=== PATIENT | female | born 1980 | race African-American/Black ===

== ENCOUNTER 2017-05-10 18:02 | Inpatient (IN) | payer MEDICAID, OTHER ==
[~2017-05-10] VITALS: Ht 180.3 cm; Wt 75.5 kg
[2017-05-10] MEDS: MAGNESIUM SULFATE 1GM/100ML 100 ML IV SCH ×2 (02:00→21:00)
[2017-05-10 18:56] LABS: Albumin 3.8 g/dL (3.4-5.0); BUN/Creatinine Ratio 6.9; Calcium 7.2 mg/dL (8.5-10.1)
[2017-05-10 18:59] LABS: Bilirubin, Total 1.1 mg/dL (0.2-1.0); Total Protein 8.5 g/dL (6.4-8.2)
[2017-05-10 19:01] LABS: Potassium 2.1 mmol/L (3.5-5.1)
[2017-05-10 19:15] LABS: Basophils # (auto) 0.1 uL; Eosinophils # (auto) 0 uL; Hemoglobin 7.1 g/dL (12.2-16.2)
[2017-05-10] MEDS ORDERED: POTASSIUM CHL 20MEQ/100ML 100 ML IV ONE (19:15)
[2017-05-10] MEDS: POTASSIUM CHL 20MEQ/100ML 100 ML IV SCH ×2 (19:15→22:25)
[2017-05-10 19:16] LABS: Eosinophils % (auto) 0.6 % (0.0-7.0); Hematocrit 23.2 % (36.0-46.0); Lymphocytes # (auto) 1.2 uL; Lymphocytes % (auto) 29.8 % (10.0-50.0); Mean Corpuscular Hemoglobin 21.6 pg (28.0-32.0); Mean Corpuscular Hgb Conc. 30.6 g/dL (32.0-36.0); Mean Corpuscular Volume 70.6 fL (80.0-100.0); Monocytes # (auto) 0.5 uL; Monocytes % (auto) 13.7 % (0.0-12.0); Neutrophils # (auto) 2.1 uL; Neutrophils % (auto) 52.9 % (37.0-80.0); Nucleated Red Blood Cells % 0.4 %; Platelet Count (auto) 188 10^3/uL (140-450); Red Blood Cells 3.29 10^6/uL (4.0-5.20)
[2017-05-10 19:19] LABS: Red Cell Distribution Width 25.9 % (11.8-14.3)
[2017-05-10] MEDS ORDERED: SODIUM CHLORIDE 0.9% 1,000 ML IVB ONE (19:42)
[2017-05-10] MEDS ORDERED: LORazepam 2MG/ML-1ML VIAL IV ONE (19:45)
[2017-05-10] MEDS: LORazepam 2MG/ML-1ML VIAL IV ONE ×2 (19:45→21:05)
[2017-05-10] MEDS ORDERED: LEVETIRACETAM INJ 1,000 MG in D5W 5% 100 ML IV ONE (20:00)
[2017-05-10] MEDS ORDERED: LEVETIRACETAM 500 MG/5ML INJ IV ONE (20:09)
[2017-05-10 20:24] LABS: INR 1.12 (0.9-1.15); Prothrombin Time 12.2 sec (9.37-12.3)
[2017-05-10 20:52] LABS: Partial Thromboplastin Time 25.2 sec (22.64-33.71)
[2017-05-10] MEDS ORDERED: CALCIUM CHL IV ONE (21:00)
[2017-05-10] MEDS ORDERED: THIAMINE INJ 100 MG, MULTIPLE VITAMIN 10 ML, FOLIC ACID 1 MG, MAGNESIUM SULF SDV 50% 8 ... IV ONE ×5 (21:00)
[2017-05-10] MEDS ORDERED: D5W 5% IV ONE (21:00)
[2017-05-10] MEDS ORDERED: CALCIUM CHL 100MG/ML 2,000 MG in D5W 5% 100 ML IV ONE (21:15)
[2017-05-10 21:19] LABS: Urine WBC None Seen /hpf (0 - 5)
[2017-05-10 21:29] LABS: Urine Bacteria NONE SEEN /hpf (None Seen); Urine Blood 3+ /uL (Negative); Urine Mucus FEW (None Seen); Urine Specific Gravity 1.016 (1.001-1.035)
[2017-05-10 21:42] LABS: Amphetamine Screen, Urine NEGATIVE (NEGATIVE); Barbiturate Scree,Urine NEGATIVE (NEGATIVE); Benzodiazephine Screen, Urine NEGATIVE (NEGATIVE); Cannabinoid Screen, Urine NEGATIVE (NEGATIVE); Cocaine Screen, Urine NEGATIVE (NEGATIVE); Opiate Scree,Urine NEGATIVE (NEGATIVE); Phencyclidine Screen, Urine NEGATIVE (NEGATIVE)
[2017-05-11] MEDS ORDERED: SODIUM CHLORIDE 0.9% 1,000 ML IV ONE (00:30)
[2017-05-11] MEDS ORDERED: ONDANSETRON HCL 4 MG/2 ML VIAL IV PRN (00:30)
[2017-05-11] MEDS: MAGNESIUM SULFATE 1GM/100ML 100 ML IV SCH ×2 (00:42→06:00)
[2017-05-11 02:10] LABS: Basophils # (auto) 0.1 uL; Eosinophils # (auto) 0 uL; Monocytes # (auto) 0.7 uL
[2017-05-11 02:12] LABS: Basophils % (auto) 0.7 % (0.0-2.0); Hematocrit 23.9 % (36.0-46.0); Hemoglobin 7.2 g/dL (12.2-16.2); Lymphocytes # (auto) 1.5 uL; Lymphocytes % (auto) 14.3 % (10.0-50.0); Mean Corpuscular Hemoglobin 21.2 pg (28.0-32.0); Mean Corpuscular Hgb Conc. 30.1 g/dL (32.0-36.0); Mean Corpuscular Volume 70.4 fL (80.0-100.0); Monocytes % (auto) 7.1 % (0.0-12.0); Neutrophils # (auto) 8.1 uL; Neutrophils % (auto) 77.9 % (37.0-80.0); Nucleated Red Blood Cells % 0.2 %; Platelet Count (auto) 174 10^3/uL (140-450); White Blood Cell 10.5 10^3/uL (4.4-10.8)
[2017-05-11 02:14] LABS: Red Cell Distribution Width 26.1 % (11.8-14.3)
[2017-05-11 02:34] LABS: Albumin 3.9 g/dL (3.4-5.0); Calcium 8.9 mg/dL (8.5-10.1)
[2017-05-11 02:37] LABS: Potassium 2.3 mmol/L (3.5-5.1)
[2017-05-11 02:39] LABS: Bilirubin, Total 1.9 mg/dL (0.2-1.0); Total Protein 8.8 g/dL (6.4-8.2)
[2017-05-11] MEDS: POTASSIUM CHL 20MEQ/100ML 100 ML IV SCH ×4 (03:15→19:55)
[2017-05-11 03:28] LABS: BUN/Creatinine Ratio 3.9
[2017-05-11] MEDS ORDERED: MAGNESIUM SULFATE 1GM/100ML 100 ML IV ONE (03:50)
[2017-05-11] MEDS ORDERED: POTASSIUM CHL 20 Meq TABLET PO ONE ×2 (04:15→15:00)
[2017-05-11] MEDS: chlordiazePOXIDE HCL 25 MG CAP PO PRN ×2 (07:08→23:40)
[2017-05-11] MEDS: LORazepam 2MG/ML-1ML VIAL IV PRN ×2 (07:08→23:40)
[2017-05-11] MEDS: FERROUS SULFATE 325 MG TAB PO SCH ×2 (07:58→18:14)
[2017-05-11] MEDS: LEVETIRACETAM 500 MG TAB PO SCH ×2 (09:48→22:00)
[2017-05-11] MEDS: THIAMINE INJ 100 MG, MULTIPLE VITAMIN 10 ML, FOLIC ACID 1 MG, MAGNESIUM SULF SDV 50% 8 ... IV SCH ×5 (10:08)
[2017-05-11 12:42] LABS: Basophils # (auto) 0.1 uL; Eosinophils # (auto) 0 uL; Monocytes # (auto) 0.8 uL; Neutrophils # (auto) 4.8 uL; White Blood Cell 6.7 10^3/uL (4.4-10.8)
[2017-05-11 12:44] LABS: Basophils % (auto) 1.5 % (0.0-2.0); Eosinophils % (auto) 0.1 % (0.0-7.0); Hematocrit 21.4 % (36.0-46.0); Lymphocytes % (auto) 14.7 % (10.0-50.0); Mean Corpuscular Hemoglobin 21.6 pg (28.0-32.0); Mean Corpuscular Hgb Conc. 30.8 g/dL (32.0-36.0); Mean Corpuscular Volume 70.2 fL (80.0-100.0); Neutrophils % (auto) 71.7 % (37.0-80.0); Nucleated Red Blood Cells % 0.3 %; Platelet Count (auto) 146 10^3/uL (140-450); Red Blood Cells 3.05 10^6/uL (4.0-5.20)
[2017-05-11 12:57] LABS: Hemoglobin 6.6 g/dL (12.2-16.2); Red Cell Distribution Width 26.2 % (11.8-14.3)
[2017-05-11 13:03] LABS: Albumin 3.2 g/dL (3.4-5.0); BUN/Creatinine Ratio 3.4; Bilirubin, Total 1.5 mg/dL (0.2-1.0); Calcium 7.1 mg/dL (8.5-10.1); Total Protein 7.8 g/dL (6.4-8.2)
[2017-05-11 13:09] LABS: Potassium 2.1 mmol/L (3.5-5.1)
[2017-05-11] MEDS ORDERED: SPIRONOLACTONE 25 MG TAB PO ONE (15:15)
[2017-05-11 15:31] VITALS: BP 159/111
[2017-05-11 17:14] VITALS: BP 159/95
[2017-05-11 17:35] VITALS: BP 170/94
[2017-05-12 05:58] LABS: Lymphocytes # (auto) 1.3 uL; Lymphocytes % (auto) 22.1 % (10.0-50.0); Monocytes # (auto) 0.6 uL
[2017-05-12 06:00] LABS: Basophils # (auto) 0.1 uL; Basophils % (auto) 1.1 % (0.0-2.0); Eosinophils # (auto) 0 uL; Eosinophils % (auto) 0.7 % (0.0-7.0); Hematocrit 28.7 % (36.0-46.0); Mean Corpuscular Hemoglobin 23.6 pg (28.0-32.0); Mean Corpuscular Hgb Conc. 31.4 g/dL (32.0-36.0); Monocytes % (auto) 10.6 % (0.0-12.0); Neutrophils # (auto) 3.8 uL; Neutrophils % (auto) 65.5 % (37.0-80.0); Nucleated Red Blood Cells % 0.4 %; Platelet Count (auto) 147 10^3/uL (140-450); Red Blood Cells 3.82 10^6/uL (4.0-5.20); White Blood Cell 5.8 10^3/uL (4.4-10.8)
[2017-05-12 06:10] LABS: Red Cell Distribution Width 26.7 % (11.8-14.3)
[2017-05-12] MEDS ORDERED: POTASSIUM CHL 20 Meq TABLET PO ONE (07:00)
[2017-05-12] MEDS ORDERED: SOD CHL 0.9%/ KCL 20MEQ 1,000 ML IV SCH (07:00)
[2017-05-12 07:49] LABS: Anion Gap 7 (5-15); Blood Urea Nitrogen < 1 mg/dL (7-18); Calcium 6.5 mg/dL (8.5-10.1); Carbon Dioxide 31 mmol/L (21-32); Chloride 102 mmol/L (98-107); GFR African American 178 mL/min; GFR Non-African American 147 mL/min; Glucose 98 mg/dL (74-106); Sodium 140 mmol/L (136-145)
[2017-05-12] MEDS: FERROUS SULFATE 325 MG TAB PO SCH (07:51)
[2017-05-12] MEDS: chlordiazePOXIDE HCL 25 MG CAP PO PRN (07:52)
[2017-05-12 07:53] LABS: Potassium 2.3 mmol/L (3.5-5.1)
[2017-05-12] MEDS: LEVETIRACETAM 500 MG TAB PO SCH (10:00)
[2017-05-12] MEDS ORDERED: SPIRONOLACTONE 25 MG TAB PO SCH (10:00)
[2017-05-12 13:00] VITALS: BP 150/112
[2017-05-12] MEDS: THIAMINE INJ 100 MG, MULTIPLE VITAMIN 10 ML, FOLIC ACID 1 MG, MAGNESIUM SULF SDV 50% 8 ... IV SCH ×5 (13:25)
[2017-05-12] MEDS ORDERED: POTASSIUM CHL 20 Meq TABLET PO SCH (22:00)
[2017-05-13 09:44] LABS: Hepatitis B Surface Antibody Negative
[2017-05-13 09:54] LABS: Hepatitis B Surface Antigen Negative (Negative)
[2017-05-13 10:21] LABS: Hepatitis C Antibody Negative (Negative)
[2017-05-13 10:22] LABS: Hepatitis A Total Antibody Positive; Hepatitis B Core Total AB Negative
== END 2017-05-12 15:10 | disposition left against medical advice (07) | DRG 53 ==
LOC: ER 18:06 → TELE 18:07 → TELE-WESTW 05-12 10:41
PROVIDERS: ADMIT Nurse Practitioner Family; ATTEND Nurse Practitioner Family
PROC: 30233N1 Transfusion of Nonautologous Red Blood Cells into Peripheral Vein, Percutaneous Approach (ICD-10-PCS; principal; 2017-05-11)
DX: G40.909 Epilepsy, unspecified, not intractable, without status epilepticus (principal); F10.231 Alcohol dependence with withdrawal delirium; K76.0 Fatty (change of) liver, not elsewhere classified; E87.1 Hypo-osmolality and hyponatremia; E83.42 Hypomagnesemia; I10 Essential (primary) hypertension; S01.512A Laceration without foreign body of oral cavity, initial encounter; D63.8 Anemia in other chronic diseases classified elsewhere; E83.51 Hypocalcemia; E87.6 Hypokalemia; R74.8 Abnormal levels of other serum enzymes; R79.89 Other specified abnormal findings of blood chemistry; R94.5 Abnormal results of liver function studies; K70.9 Alcoholic liver disease, unspecified; N83.8 Other noninflammatory disorders of ovary, fallopian tube and broad ligament; Z53.21 Procedure and treatment not carried out due to patient leaving prior to being seen by health care provider; X58.XXXA Exposure to other specified factors, initial encounter; N92.0 Excessive and frequent menstruation with regular cycle; Z79.899 Other long term (current) drug therapy; Z80.3 Family history of malignant neoplasm of breast; Z82.49 Family history of ischemic heart disease and other diseases of the circulatory system; Z83.2 Family history of diseases of the blood and blood-forming organs and certain disorders involving the immune mechanism; Z86.73 Personal history of transient ischemic attack (TIA), and cerebral infarction without residual deficits; Z91.19 Patient's noncompliance with other medical treatment and regimen; Y93.89 Activity, other specified; Y92.89 Other specified places as the place of occurrence of the external cause; Y99.8 Other external cause status
CPT/HCPCS: 36415; 36430; 70450; 71045; 76856; 80048; 80053; 80307; 80320; 81001; 81025; 82088; 82378; 82542; 82962; 83735; 83880; 84132; 84443; 84702; 85025; 85610; 85730; 86301; 86304; 86704; 86706; 86708; 86803; 86850; 86900; 86901; 86920; 87040; 87340; 93005; 95819; 96361; 96365; 96366; 96367; 96375; 99291; J3480; J7060

== ENCOUNTER 2019-02-02 13:42 | Emergency (ER) | payer SELFPAY ==
[~2019-02-02] VITALS: Ht 185.4 cm; Wt 80.3 kg
[~2019-02-02 13:42] MED LIST: AML5T PO; GABA300C10 PO; HYDR12.56 PO; LEVE500T22 PO
[2019-02-02] MEDS ORDERED: SODIUM CHLORIDE 0.9% 1,000 ML IVB ONE (13:54)
[2019-02-02] MEDS ORDERED: LEVETIRACETAM INJ 1,000 MG in D5W 5% 100 ML IV ONE (14:00)
[2019-02-02] MEDS ORDERED: LORazepam 2MG/ML-1ML VIAL IV ONE (14:00)
[2019-02-02 14:15] LABS: Basophils # (auto) 0.1 uL; Eosinophils # (auto) 0 uL; Monocytes # (auto) 0.4 uL; Neutrophils # (auto) 2.1 uL; Nucleated Red Blood Cells % 0.1 %
[2019-02-02 14:17] LABS: Basophils % (auto) 2.5 % (0.0-2.0); Eosinophils % (auto) 0.8 % (0.0-7.0); Hematocrit 34.6 % (36.0-46.0); Lymphocytes # (auto) 1.1 uL; Lymphocytes % (auto) 29.8 % (10.0-50.0); Mean Corpuscular Hemoglobin 24.6 pg (28.0-32.0); Monocytes % (auto) 9.9 % (0.0-12.0); Platelet Count (auto) 235 10^3/uL (140-450); Red Blood Cells 4.49 10^6/uL (4.0-5.20); White Blood Cell 3.7 10^3/uL (4.4-10.8)
[2019-02-02 14:41] LABS: Albumin 4.1 g/dL (3.4-5.0); Calcium 8.4 mg/dL (8.5-10.1)
[2019-02-02 14:48] LABS: BUN/Creatinine Ratio 14.8; Bilirubin, Total 0.7 mg/dL (0.2-1.0); Total Protein 8.5 g/dL (6.4-8.2)
[2019-02-02 14:51] LABS: Red Cell Distribution Width 23.8 % (11.8-14.3)
== END 2019-02-02 17:03 | disposition home or self-care (01) ==
LOC: EDBD 13:42 → ER 13:47
DX: F10.129 Alcohol abuse with intoxication, unspecified (principal); R56.9 Unspecified convulsions; Y90.8 Blood alcohol level of 240 mg/100 ml or more; I10 Essential (primary) hypertension
CPT/HCPCS: 36415; 80053; 80320; 84702; 85025; 96365; 96375; 99283; J1953; J2060; J7060

== ENCOUNTER 2019-02-14 15:33 | Inpatient (IN) | payer SELFPAY ==
[~2019-02-14] VITALS: Ht 172.7 cm; Wt 78.4 kg
[2019-02-14] MEDS ORDERED: LORazepam 2MG/ML-1ML VIAL IV ONE (16:30)
[2019-02-14] MEDS ORDERED: SODIUM CHLORIDE 0.9% 1,000 ML IV ONE (19:00)
[2019-02-14] MEDS ORDERED: ONDANSETRON HCL 4 MG/2 ML VIAL IV ONE (19:00)
[2019-02-14] MEDS ORDERED: LEVETIRACETAM INJ 1,000 MG in D5W 5% 100 ML IV ONE (19:15)
[2019-02-14] MEDS ORDERED: SODIUM CHLORIDE 0.9% 1,000 ML IV SCH (22:22)
[2019-02-14] MEDS ORDERED: ONDANSETRON HCL 4 MG/2 ML VIAL IV PRN (22:30)
[2019-02-14] MEDS ORDERED: HYDROcodone-ACET 5/325MG TAB PO PRN (22:30)
[2019-02-14] MEDS ORDERED: MORPHINE SULFATE 4 MG/ML SYR/VIAL IV PRN (22:30)
[2019-02-14] MEDS ORDERED: ACETAMINOPHEN 325 MG TAB PO PRN (22:30)
[2019-02-14] MEDS ORDERED: LORazepam 0.5 MG TAB PO PRN (22:30)
[2019-02-14] MEDS ORDERED: DOCUSATE SOD 100 MG CAP PO PRN (22:30)
[2019-02-15 00:47] VITALS: BP 154/104
[2019-02-15 02:15] VITALS: BP 154/104
[2019-02-15 05:22] VITALS: BP 121/71
--- NOTE | 2019-02-15 05:28 | NUR ---
Elevated Temp During 4am vitals checked the patient was found with a temperature of 100.2. It was too low for Tylenol but started cooling measures anyway. The patient's temp decreased to 98.6 at 0515hrs. Will continue to monitor.
--- NOTE | 2019-02-15 07:30 | NUR ---
Opening Shift Note Assumed care of patient, who is alert and oriented x4. No S/S of distress/SOB or pain. Bed is in the lowest position with 2x side rails up for safety. Seizure precautions are in place. Call light is within reach. Instructed on POC and to call for assist PRN, will continue to monitor for changes Q1hr and PRN.
[2019-02-15 07:41] LABS: Calcium 8.2 mg/dL (8.5-10.1)
[2019-02-15 07:45] LABS: Basophils # (auto) 0.1 uL; Basophils % (auto) 1.3 % (0.0-2.0); Eosinophils # (auto) 0 uL; Eosinophils % (auto) 0.5 % (0.0-7.0); Lymphocytes # (auto) 1.7 uL; Lymphocytes % (auto) 20.6 % (10.0-50.0); Mean Corpuscular Hemoglobin 24.8 pg (28.0-32.0); Mean Corpuscular Hgb Conc. 32.4 g/dL (32.0-36.0); Mean Corpuscular Volume 76.5 fL (80.0-100.0); Monocytes % (auto) 12.6 % (0.0-12.0); Neutrophils # (auto) 5.3 uL; Nucleated Red Blood Cells % 0.2 %; Platelet Count (auto) 159 10^3/uL (140-450); Potassium 2.7 mmol/L (3.5-5.1); Red Blood Cells 4.44 10^6/uL (4.0-5.20); White Blood Cell 8.1 10^3/uL (4.4-10.8)
[2019-02-15 07:47] LABS: Red Cell Distribution Width 24.8 % (11.8-14.3)
--- NOTE | 2019-02-15 07:49 | NUR ---
Paged hospitalist Paged hospitalist about patient's potassium level of 2.7. Received call back. New orders received.
[2019-02-15 08:00] VITALS: BP 139/78
[2019-02-15] MEDS ORDERED: POTASSIUM CHLORIDE 40 MEQ, LIDOCAINE 1% (LOCAL ANESTH.) 4 ML in SODIUM CHL 0.9% 100 ML IV ONE ×2 (08:00→14:00)
--- NOTE | 2019-02-15 08:00 | NUR ---
Patient is refusing potassium replacement as ordered per hospitalist.
--- NOTE | 2019-02-15 08:13 | NUR ---
Paged hospitalist To inform them that patient is refusing potassium supplement. Waiting for call back.
[2019-02-15 09:00] VITALS: BP 139/75
--- NOTE | 2019-02-15 09:40 | NUR ---
Received new orders from Dr. Vu to replace patients potassium level of 2.7. Will carry out orders.
[2019-02-15] MEDS ORDERED: POTASSIUM EFFERVESENT TAB 25 MEQ PO ONE (09:45)
[2019-02-15] MEDS ORDERED: LEVETIRACETAM INJ 500 MG in D5W 5% 100 ML IV SCH (10:00)
--- NOTE | 2019-02-15 11:45 | NUR ---
Dr. Hatch at bedside Updated patient on POC. New orders received/carried out.
[2019-02-15] MEDS ORDERED: chlordiazePOXIDE HCL 25 MG CAP PO SCH (12:00)
[2019-02-15] MEDS ORDERED: FOLIC ACID 1 MG, MULTIPLE VITAMIN 10 ML, MAGNESIUM SULF SDV 50% 8 MEQ, THIAMINE INJ 100... INJ SCH ×5 (12:00)
[2019-02-15] MEDS ORDERED: LORazepam 2MG/ML-1ML VIAL IV PRN (12:00)
[2019-02-15] MEDS ORDERED: PANTOPRAZOLE 40 MG TAB PO SCH (12:02)
[2019-02-15 13:00] VITALS: BP 145/97
--- NOTE | 2019-02-15 14:09 | NUR ---
AMA Patient wants to leave Against medical advice due to personal reasons. Mamie is aware of patient's decision to leave.
--- NOTE | 2019-02-15 14:55 | NUR ---
AMA Note POLLY WOLFF states they want to leave the hospital Against Medical Advice (AMA). Patient encouraged to stay for further treatment/stabilization. DEBRA Hatch notified of patient's wishes. Patient advised of the risks and benefits of leaving AMA. Patient verbalized understanding. Removed IV with clean technique, 22g catheter fully intact. Patient tolerated well. Patient encouraged to return to the ER if symptoms do not improve or worsen.
== END 2019-02-15 14:55 | disposition left against medical advice (07) | DRG 101 ==
LOC: ER 15:33 → EDBD 15:33 → OVERFLOW 15:34 → WEST WING 02-15 00:40
PROVIDERS: ADMIT Hospitalist; ATTEND Hospitalist
DX: G40.909 Epilepsy, unspecified, not intractable, without status epilepticus (principal); I10 Essential (primary) hypertension; R32 Unspecified urinary incontinence; F10.20 Alcohol dependence, uncomplicated; Y90.9 Presence of alcohol in blood, level not specified; E87.6 Hypokalemia; Z80.3 Family history of malignant neoplasm of breast; Z83.2 Family history of diseases of the blood and blood-forming organs and certain disorders involving the immune mechanism; Z83.3 Family history of diabetes mellitus; Z91.14 Patient's other noncompliance with medication regimen; Z91.19 Patient's noncompliance with other medical treatment and regimen
CPT/HCPCS: 36415; 70450; 80048; 82962; 85025; G0378; J2001; J2405; J7060

== ENCOUNTER 2019-02-24 06:45 | Emergency (ER) | payer SELFPAY ==
[~2019-02-24] VITALS: Ht 185.4 cm; Wt 78.0 kg
[2019-02-24] MEDS ORDERED: SODIUM CHLORIDE 0.9% 1,000 ML IVB ONE (07:54)
[2019-02-24] MEDS ORDERED: LORazepam 2MG/ML-1ML VIAL IV ONE (08:00)
[2019-02-24] MEDS ORDERED: LABETALOL HCL 5 MG/ML 4ML SYRINGE IV ONE (08:00)
[2019-02-24 08:15] LABS: Urine Bacteria MANY /hpf (None Seen); Urine Blood TRACE /uL (Negative); Urine Mucus FEW (None Seen); Urine Specific Gravity 1.019 (1.001-1.035); Urine WBC 8 /hpf (0 - 5)
[2019-02-24 08:27] LABS: Amphetamine Screen, Urine NEGATIVE (NEGATIVE); Barbiturate Scree,Urine NEGATIVE (NEGATIVE); Benzodiazephine Screen, Urine POSITIVE (NEGATIVE); Cannabinoid Screen, Urine NEGATIVE (NEGATIVE); Cocaine Screen, Urine NEGATIVE (NEGATIVE); Opiate Scree,Urine NEGATIVE (NEGATIVE); Phencyclidine Screen, Urine NEGATIVE (NEGATIVE)
[2019-02-24 08:44] LABS: Hemoglobin 10.6 g/dL (12.2-16.2); White Blood Cell 5.4 10^3/uL (4.4-10.8)
[2019-02-24 08:46] LABS: Hematocrit 32.9 % (36.0-46.0); Mean Corpuscular Hemoglobin 25.4 pg (28.0-32.0); Mean Corpuscular Hgb Conc. 32.3 g/dL (32.0-36.0); Mean Corpuscular Volume 78.7 fL (80.0-100.0); Platelet Count (auto) 318 10^3/uL (140-450); Red Blood Cells 4.19 10^6/uL (4.0-5.20)
[2019-02-24 08:56] LABS: Red Cell Distribution Width 24.8 % (11.8-14.3)
[2019-02-24 08:57] LABS: Basophils % (manual) 0 (0.0-2.0); Blast Cells 0; Myelocytes % 0; Promyelocytes % 0; Reactive Lymphocytes 0
[2019-02-24 09:03] LABS: Albumin 3.4 g/dL (3.4-5.0); Calcium 8.1 mg/dL (8.5-10.1)
[2019-02-24 09:05] LABS: Bilirubin, Total 0.5 mg/dL (0.2-1.0); Total Protein 8.4 g/dL (6.4-8.2)
[2019-02-24 09:17] LABS: Potassium 2.9 mmol/L (3.5-5.1)
[2019-02-24] MEDS ORDERED: POTASSIUM EFFERVESENT TAB 25 MEQ PO ONE (09:30)
[2019-02-24 10:00] VITALS: BP 175/102
[2019-02-24 10:02] LABS: Band Neutrophils % (manual) 2; Eosinophils % (manual) 2 (0-7); Lymphocytes % (manual) 22 (10.0-50.0); Metamyelocytes % 1; Monocytes % (manual) 6 (0-12)
== END 2019-02-24 10:42 | disposition home or self-care (01) ==
LOC: ER 06:45
DX: I10 Essential (primary) hypertension (principal); R56.9 Unspecified convulsions; R42 Dizziness and giddiness
CPT/HCPCS: 36415; 80053; 80307; 80320; 81001; 85007; 85025; 85027; 96361; 96374; 99283; J2060; J7030

== ENCOUNTER 2019-02-25 07:33 | Emergency (ER) | payer MEDICAID ==
[~2019-02-25] VITALS: Ht 185.4 cm; Wt 78.0 kg
[2019-02-25] MEDS ORDERED: SODIUM CHLORIDE 0.9% 1,000 ML IV ONE (07:52)
[2019-02-25] MEDS ORDERED: LORazepam 2MG/ML-1ML VIAL IV ONE (08:00)
[2019-02-25 08:22] LABS: Eosinophils # (auto) 0 uL; Hemoglobin 11.5 g/dL (12.2-16.2); Lymphocytes # (auto) 0.9 uL; Mean Corpuscular Hgb Conc. 32.1 g/dL (32.0-36.0); Monocytes # (auto) 0.6 uL; Nucleated Red Blood Cells % 0.2 %; White Blood Cell 3.6 10^3/uL (4.4-10.8)
[2019-02-25 08:25] LABS: Basophils # (auto) 0 uL; Basophils % (auto) 0.4 % (0.0-2.0); Eosinophils % (auto) 0.6 % (0.0-7.0); Hematocrit 35.9 % (36.0-46.0); Lymphocytes % (auto) 24.7 % (10.0-50.0); Mean Corpuscular Hemoglobin 25.1 pg (28.0-32.0); Mean Corpuscular Volume 78.2 fL (80.0-100.0); Monocytes % (auto) 17.6 % (0.0-12.0); Neutrophils % (auto) 56.7 % (37.0-80.0); Platelet Count (auto) 359 10^3/uL (140-450); Red Blood Cells 4.59 10^6/uL (4.0-5.20)
[2019-02-25 08:32] LABS: Urine Bacteria FEW /hpf (None Seen); Urine Blood Negative /uL (Negative); Urine Mucus FEW (None Seen); Urine Specific Gravity 1.011 (1.001-1.035); Urine WBC 15 /hpf (0 - 5)
[2019-02-25 08:36] LABS: Albumin 3.7 g/dL (3.4-5.0); Calcium 8.3 mg/dL (8.5-10.1)
[2019-02-25 08:39] LABS: BUN/Creatinine Ratio 5.5; Bilirubin, Total 1.1 mg/dL (0.2-1.0)
[2019-02-25 08:40] LABS: Red Cell Distribution Width 24.7 % (11.8-14.3)
[2019-02-25 08:42] LABS: Potassium 2.8 mmol/L (3.5-5.1)
[2019-02-25 08:44] LABS: Magnesium 1.1 mg/dL (1.6-2.6)
[2019-02-25] MEDS ORDERED: POTASSIUM EFFERVESENT TAB 25 MEQ PO ONE (09:00)
[2019-02-25] MEDS ORDERED: cefTRIAXone 1GM/50ML D5W 50 ML IV ONE (11:00)
[2019-02-25] MEDS ORDERED: MAGNESIUM SULFATE 1GM/100ML 100 ML IV SCH (11:00)
[2019-02-25 13:45] VITALS: BP 169/106
== END 2019-02-25 14:00 | disposition left against medical advice (07) ==
LOC: ER 07:37
DX: G40.909 Epilepsy, unspecified, not intractable, without status epilepticus (principal); N39.0 Urinary tract infection, site not specified; E87.6 Hypokalemia; R79.89 Other specified abnormal findings of blood chemistry; I10 Essential (primary) hypertension
CPT/HCPCS: 36415; 80053; 81001; 83690; 83735; 84702; 85025; 93005; 96365; 96366; 96367; 99284; J0696; J2060; J3475; J7030

== ENCOUNTER 2019-02-27 19:16 | Emergency (ER) | payer SELFPAY ==
[~2019-02-27] VITALS: Ht 180.3 cm; Wt 78.0 kg
[2019-02-27 20:32] LABS: Basophils # (auto) 0 uL; Eosinophils # (auto) 0.1 uL; Hemoglobin 11.4 g/dL (12.2-16.2); Lymphocytes # (auto) 1.7 uL; Mean Corpuscular Hgb Conc. 31.7 g/dL (32.0-36.0); Monocytes # (auto) 0.6 uL; Neutrophils # (auto) 3.8 uL; Nucleated Red Blood Cells % 0.1 %; White Blood Cell 6.3 10^3/uL (4.4-10.8)
[2019-02-27 20:33] LABS: Albumin 3.7 g/dL (3.4-5.0); Anion Gap 10 (5-15); Blood Alcohol < 3.0 mg/dL (0-5); Blood Urea Nitrogen 6 mg/dL (7-18); Calcium 8.9 mg/dL (8.5-10.1); Carbon Dioxide 29 mmol/L (21-32); Chloride 99 mmol/L (98-107); Glucose 96 mg/dL (74-106); Magnesium 1.4 mg/dL (1.6-2.6); Sodium 138 mmol/L (136-145)
[2019-02-27 20:34] LABS: Basophils % (auto) 0.6 % (0.0-2.0); Eosinophils % (auto) 1.9 % (0.0-7.0); Lymphocytes % (auto) 27.5 % (10.0-50.0); Mean Corpuscular Volume 78.9 fL (80.0-100.0); Monocytes % (auto) 9.2 % (0.0-12.0); Neutrophils % (auto) 60.8 % (37.0-80.0); Platelet Count (auto) 417 10^3/uL (140-450); Red Blood Cells 4.56 10^6/uL (4.0-5.20)
[2019-02-27 20:34] LABS: Alcohol, Urine < 3.0 mg/dL (0-5); Amphetamine Screen, Urine NEGATIVE (NEGATIVE); Barbiturate Scree,Urine NEGATIVE (NEGATIVE); Benzodiazephine Screen, Urine POSITIVE (NEGATIVE); Cannabinoid Screen, Urine NEGATIVE (NEGATIVE); Cocaine Screen, Urine NEGATIVE (NEGATIVE); Opiate Scree,Urine NEGATIVE (NEGATIVE); Phencyclidine Screen, Urine NEGATIVE (NEGATIVE)
[2019-02-27 20:35] LABS: Alanine Aminotransferase 82 U/L (13-56); Aspartate Aminotransferase 119 U/L (15-37); BUN/Creatinine Ratio 8.6; GFR African American 119 mL/min; GFR Non-African American 99 mL/min; Red Cell Distribution Width 24.5 % (11.8-14.3)
[2019-02-27 20:37] LABS: Alkaline Phosphatase 138 U/L (45-117); Bilirubin, Total 0.6 mg/dL (0.2-1.0); Total Protein 8.6 g/dL (6.4-8.2)
[2019-02-27 20:46] LABS: Phenytoin (Dilantin) 1.2 ug/mL (10-20)
[2019-02-27] MEDS ORDERED: LEVETIRACETAM INJ 1,000 MG in D5W 5% 100 ML IV ONE (21:15)
[2019-02-27] MEDS ORDERED: LORazepam 2MG/ML-1ML VIAL IV ONE (21:45)
[2019-02-27 22:30] LABS: Urine Bacteria FEW /hpf (None Seen); Urine Blood Negative /uL (Negative); Urine Specific Gravity 1.012 (1.001-1.035); Urine WBC 6 /hpf (0 - 5)
[2019-02-27 23:00] VITALS: BP 137/85
== END 2019-02-28 00:03 | disposition home or self-care (01) ==
LOC: ER 19:16 → EDBD 19:16 → ER 02-28 00:03
DX: F10.239 Alcohol dependence with withdrawal, unspecified (principal); R56.9 Unspecified convulsions; K70.30 Alcoholic cirrhosis of liver without ascites; E87.6 Hypokalemia; I10 Essential (primary) hypertension; Z91.14 Patient's other noncompliance with medication regimen; Y90.0 Blood alcohol level of less than 20 mg/100 ml
CPT/HCPCS: 36415; 80053; 80164; 80185; 80307; 80320; 81001; 81025; 82140; 83735; 85025; 96365; 96375; 99283; J1953; J2060; J7060

== ENCOUNTER 2019-05-27 22:21 | Emergency (ER) | payer MEDICAID ==
[~2019-05-27] VITALS: Ht 182.9 cm; Wt 90.7 kg
[2019-05-27 23:21] LABS: Basophils # (auto) 0.1 10 ^3/uL (0-0.2); Basophils % (auto) 2.7 % (0.0-2.0); Eosinophils # (auto) 0 10 ^3/uL (0-0.8); Eosinophils % (auto) 0.6 % (0.0-7.0); Hemoglobin 11.1 g/dL (12.2-16.2); Lymphocytes # (auto) 1.2 10 ^3/uL (0.4-5.4); Lymphocytes % (auto) 37.3 % (10.0-50.0); Mean Corpuscular Hemoglobin 26.5 pg (28.0-32.0); Mean Corpuscular Hgb Conc. 32.6 g/dL (32.0-36.0); Mean Corpuscular Volume 81.5 fL (80.0-100.0); Monocytes # (auto) 0.4 10 ^3/uL (0-1.3); Monocytes % (auto) 11.6 % (0.0-12.0); Neutrophils # (auto) 1.5 10 ^3/uL (1.6-8.6); Neutrophils % (auto) 47.8 % (37.0-80.0); Nucleated Red Blood Cells % 0.1 %; Platelet Count (auto) 183 10^3/uL (140-450); Red Blood Cells 4.17 10^6/uL (4.0-5.20); White Blood Cell 3.2 10^3/uL (4.4-10.8)
[2019-05-27 23:22] LABS: Red Cell Distribution Width 21.6 % (11.8-14.3)
[2019-05-27 23:40] LABS: Calcium 8.7 mg/dL (8.5-10.1)
[2019-05-27 23:43] LABS: Albumin 4.3 g/dL (3.4-5.0); BUN/Creatinine Ratio 18.1
[2019-05-27 23:48] LABS: Bilirubin, Total 0.4 mg/dL (0.2-1.0); Total Protein 8.9 g/dL (6.4-8.2)
[2019-05-27 23:51] LABS: Potassium 2.6 mmol/L (3.5-5.1)
[2019-05-28] MEDS ORDERED: THIAMINE INJ 100 MG in SODIUM CHLORIDE 0.9% 1,000 ML IV ONE (01:00)
[2019-05-28] MEDS ORDERED: POTASSIUM EFFERVESENT TAB 25 MEQ PO ONE (01:00)
[2019-05-28] MEDS ORDERED: POTASSIUM CHL 20MEQ/100ML 100 ML IV ONE (01:00)
[2019-05-28] MEDS ORDERED: ONDANSETRON HCL 4 MG/2 ML VIAL IV ONE (01:00)
[2019-05-28] MEDS ORDERED: levETIRAcetam 500 MG/5ML INJ IV ONE (01:08)
[2019-05-28] MEDS ORDERED: THIAMINE 100mg/ml INJ (200mg/2ml VIAL) ONE (01:08)
[2019-05-28 01:18] LABS: Urine Bacteria FEW /hpf (None Seen); Urine Blood Negative /uL (Negative); Urine Hyaline Cast MOD /lpf (0 - 2); Urine Mucus FEW (None Seen); Urine Specific Gravity 1.016 (1.001-1.035); Urine WBC 5 /hpf (0 - 5)
[2019-05-28 01:21] LABS: Amphetamine Screen, Urine NEGATIVE (NEGATIVE); Barbiturate Scree,Urine NEGATIVE (NEGATIVE); Benzodiazephine Screen, Urine NEGATIVE (NEGATIVE); Cannabinoid Screen, Urine NEGATIVE (NEGATIVE); Cocaine Screen, Urine NEGATIVE (NEGATIVE); Opiate Scree,Urine NEGATIVE (NEGATIVE); Phencyclidine Screen, Urine NEGATIVE (NEGATIVE)
[2019-05-28 04:38] VITALS: BP 112/71
[2019-05-28 04:38] LABS: BUN/Creatinine Ratio 15.5; Calcium 8.8 mg/dL (8.5-10.1); Potassium 3.9 mmol/L (3.5-5.1)
== END 2019-05-28 05:23 | disposition home or self-care (01) ==
LOC: EDUNIT# 22:21 → EDBD 22:21 → ER 22:23
DX: F10.239 Alcohol dependence with withdrawal, unspecified (principal); F10.229 Alcohol dependence with intoxication, unspecified; K70.9 Alcoholic liver disease, unspecified; E87.6 Hypokalemia; Y90.9 Presence of alcohol in blood, level not specified; I10 Essential (primary) hypertension
CPT/HCPCS: 36415; 80048; 80053; 80307; 80320; 81001; 84702; 85025; 96365; 96366; 96367; 96368; 96375; 99284; J1953; J2405; J3411; J3480; J7060

== ENCOUNTER 2019-05-28 06:04 | Emergency (ER) | payer MEDICAID ==
[~2019-05-28] VITALS: Ht 180.3 cm; Wt 73.0 kg
[2019-05-28 06:10] VITALS: BP 143/93
--- NOTE | 2019-05-28 10:21 | NUR ---
assessment per consult needs access to outpatient mental facilities in area. Patient discharged from ER prior to being assessed. Addendum: 05/28/19 at 1623 by Linsey Osorio Amended: Links added.
== END 2019-05-28 08:16 | disposition home or self-care (01) ==
LOC: ER 06:04
DX: R07.89 Other chest pain (principal); F10.129 Alcohol abuse with intoxication, unspecified; E86.0 Dehydration; I10 Essential (primary) hypertension; Y90.9 Presence of alcohol in blood, level not specified
CPT/HCPCS: 93005

== ENCOUNTER 2019-08-29 01:51 | Emergency (ER) | payer MEDICAID ==
[~2019-08-29] VITALS: Ht 185.4 cm; Wt 79.4 kg
[2019-08-29] MEDS ORDERED: cloNIDine HCL 0.1 MG TAB PO ONE (02:30)
[2019-08-29 03:15] LABS: Albumin 4.5 g/dL (3.4-5.0); Anion Gap 25 (5-15); Blood Urea Nitrogen 6 mg/dL (7-18); Calcium 8.7 mg/dL (8.5-10.1); Carbon Dioxide 16 mmol/L (21-32); Chloride 95 mmol/L (98-107); Glucose 100 mg/dL (74-106); Magnesium 1.7 mg/dL (1.6-2.6); Potassium 3.3 mmol/L (3.5-5.1); Sodium 136 mmol/L (136-145)
[2019-08-29] MEDS ORDERED: ONDANSETRON HCL 4 MG/2 ML VIAL IV ONE (03:15)
[2019-08-29] MEDS ORDERED: LORazepam 2MG/ML-1ML VIAL IV ONE (03:15)
[2019-08-29] MEDS ORDERED: SODIUM CHLORIDE 0.9% 2,000 ML IV ONE (03:15)
[2019-08-29 03:17] LABS: Alanine Aminotransferase 140 U/L (13-56); Amylase 73 U/L (25-115); Aspartate Aminotransferase 342 U/L (15-37); BUN/Creatinine Ratio 7.5; GFR African American 102 mL/min; GFR Non-African American 84 mL/min; Lipase 102 U/L (73-393)
[2019-08-29 03:20] LABS: Alkaline Phosphatase 122 U/L (45-117); Bilirubin, Total 1.4 mg/dL (0.2-1.0); Total Protein 10.1 g/dL (6.4-8.2)
[2019-08-29 03:40] LABS: Urine Bacteria NONE SEEN /hpf (None Seen); Urine Blood 2+ /uL (Negative); Urine Specific Gravity 1.027 (1.001-1.035); Urine WBC 6 /hpf (0 - 5)
[2019-08-29] MEDS ORDERED: levETIRAcetam 500 MG/5ML INJ IV ONE (03:43)
[2019-08-29 04:24] LABS: Hematocrit 33.7 % (36.0-46.0); Hemoglobin 10.8 g/dL (12.2-16.2); Mean Corpuscular Hemoglobin 26.2 pg (28.0-32.0); Mean Corpuscular Hgb Conc. 31.9 g/dL (32.0-36.0); Mean Corpuscular Volume 82.3 fL (80.0-100.0); Platelet Count (auto) 99 10^3/uL (140-450); White Blood Cell 3.2 10^3/uL (4.4-10.8)
[2019-08-29 04:25] LABS: Basophils % (manual) 0 (0.0-2.0); Blast Cells 0; Eosinophils % (manual) 0 (0-7); Metamyelocytes % 0; Myelocytes % 0; Promyelocytes % 0; Reactive Lymphocytes 0
[2019-08-29 05:00] VITALS: BP 146/96
[2019-08-29 05:04] LABS: Band Neutrophils % (manual) 9; Lymphocytes % (manual) 6 (10.0-50.0); Monocytes % (manual) 5 (0-12)
== END 2019-08-29 04:55 | disposition home or self-care (01) ==
LOC: ER 01:51 → EDBD 01:51 → ER 04:55
DX: K29.00 Acute gastritis without bleeding (principal); G40.909 Epilepsy, unspecified, not intractable, without status epilepticus; F41.9 Anxiety disorder, unspecified; R11.2 Nausea with vomiting, unspecified; Z32.02 Encounter for pregnancy test, result negative
CPT/HCPCS: 36415; 80053; 81001; 81025; 82150; 83690; 83735; 84702; 85007; 85025; 85027; 96361; 96374; 96375; 99285; J1953; J2060; J2405; J7030; J7060

== ENCOUNTER 2020-01-20 15:37 | Inpatient (IN) | payer MEDICAID ==
[2020-01-19] MEDS: POTASSIUM CHL 20MEQ/100ML 100 ML IV SCH (23:50)
[~2020-01-20] VITALS: Ht 185.4 cm; Wt 80.5 kg
[2020-01-20 11:20] VITALS: BP 158/97
[~2020-01-20 15:37] MED LIST changes: -LEVE500T22 PO; +LEVE500T32 PO
[2020-01-20] MEDS ORDERED: LORazepam 2MG/ML-1ML VIAL ONE (16:01)
[2020-01-20] MEDS ORDERED: ONDANSETRON HCL 4 MG/2 ML VIAL ONE (17:00)
[2020-01-20 17:42] LABS: Basophils # (auto) 0.1 10 ^3/uL (0-0.2); Basophils % (auto) 3.1 % (0.0-2.0); Eosinophils # (auto) 0 10 ^3/uL (0-0.8); Hematocrit 38.8 % (36.0-46.0); Hemoglobin 12.3 g/dL (12.2-16.2); Lymphocytes # (auto) 0.4 10 ^3/uL (0.4-5.4); Lymphocytes % (auto) 9.3 % (10.0-50.0); Mean Corpuscular Hemoglobin 28.2 pg (28.0-32.0); Mean Corpuscular Hgb Conc. 31.7 g/dL (32.0-36.0); Mean Corpuscular Volume 89.1 fL (80.0-100.0); Monocytes # (auto) 0.5 10 ^3/uL (0-1.3); Monocytes % (auto) 10.6 % (0.0-12.0); Neutrophils # (auto) 3.4 10 ^3/uL (1.6-8.6); Nucleated Red Blood Cells % 0.1 %; Platelet Count (auto) 216 10^3/uL (140-450); Red Blood Cells 4.35 10^6/uL (4.0-5.20); Red Cell Distribution Width 19.8 % (11.8-14.3); White Blood Cell 4.4 10^3/uL (4.4-10.8)
[2020-01-20 18:04] LABS: Albumin 4.4 g/dL (3.4-5.0); Calcium 8.2 mg/dL (8.5-10.1); INR 1.16 (0.9-1.15); Magnesium 1.6 mg/dL (1.6-2.6); Partial Thromboplastin Time 26.5 sec (23.0-31.2)
[2020-01-20 18:07] LABS: Bilirubin, Total 1.5 mg/dL (0.2-1.0); Total Protein 9.2 g/dL (6.4-8.2)
[2020-01-20 18:08] LABS: Lactic Acid w/Reflex 13.7 mmol/L (0.4-2.0)
[2020-01-20 18:14] LABS: Potassium 2.5 mmol/L (3.5-5.1)
[2020-01-20] MEDS ORDERED: SODIUM CHLORIDE 0.9% 1,000 ML IV ONE ×2 (18:30→21:15)
[2020-01-20 18:37] LABS: Urine Bacteria FEW /hpf (None Seen); Urine Blood TRACE /uL (Negative); Urine Mucus FEW (None Seen); Urine Specific Gravity 1.018 (1.001-1.035); Urine WBC 11 /hpf (0 - 5)
[2020-01-20 19:55] LABS: Amphetamine Screen, Urine NEGATIVE (NEGATIVE); Barbiturate Scree,Urine NEGATIVE (NEGATIVE); Benzodiazephine Screen, Urine NEGATIVE (NEGATIVE); Cannabinoid Screen, Urine NEGATIVE (NEGATIVE); Cocaine Screen, Urine NEGATIVE (NEGATIVE); Opiate Scree,Urine NEGATIVE (NEGATIVE); Phencyclidine Screen, Urine NEGATIVE (NEGATIVE)
[2020-01-20] MEDS ORDERED: ACETAMINOPHEN 500 MG TAB PO ONE (20:45)
[2020-01-20] MEDS: POTASSIUM CHL 20MEQ/100ML 100 ML IV SCH ×2 (20:55→21:55)
[2020-01-20] MEDS ORDERED: NITROGLYCERIN 0.4 MG SL TAB SL PRN (21:15)
[2020-01-20] MEDS ORDERED: ONDANSETRON HCL 4 MG/2 ML VIAL IV PRN (21:15)
[2020-01-20] MEDS ORDERED: SODIUM CHLORIDE 0.9% 1,000 ML IV SCH (21:15)
[2020-01-20] MEDS ORDERED: LORazepam 2MG/ML-1ML VIAL IV PRN (21:15)
[2020-01-20] MEDS ORDERED: ACETAMINOPHEN 325 MG TAB PO PRN (21:15)
[2020-01-20] MEDS ORDERED: MORPHINE SULF INJ 2 MG/ML SYRINGE 1ML IV PRN (21:15)
[2020-01-20] MEDS ORDERED: hydrALAZINE HCL 20 MG/ML VL IV PRN (23:15)
[2020-01-20] MEDS: FOLIC ACID 1 MG in D5W 5% 50 ML INJ SCH (23:15)
--- NOTE | 2020-01-21 | NUR ---
Telemetry admit from ER POLLY WOLFF admitted to Telemetry unit after SBAR received. Patient oriented to Ab pereyra RN, unit, room 232, bed A, and unit policies regarding patient care and visiting hours. Patient now on continuous telemetry monitoring, tele box #16 and telemetry reading on arrival to unit is SR 83. Patient VS taken, weighed by bedscale and encouraged to call if they need something. All questions and concerns addressed, patient verbalized understanding.
[2020-01-21] MEDS ORDERED: LORazepam 2MG/ML-1ML VIAL IV PRN (00:15)
[2020-01-21] MEDS: LORazepam 2MG/ML-1ML VIAL IV PRN (00:56)
[2020-01-21] MEDS: THIAMINE 100mg/ml INJ (200mg/2ml VIAL) IV SCH ×2 (01:57→11:19)
[2020-01-21] MEDS: amLODIPine BESYLATE 5 MG TAB PO SCH ×2 (01:58→11:19)
[2020-01-21] MEDS: MAGNESIUM SULFATE 1GM/100ML 100 ML IV SCH ×2 (02:12→02:16)
[2020-01-21] MEDS: SODIUM CHLORIDE 0.9% 1,000 ML IV SCH ×3 (03:26→19:15)
[2020-01-21] MEDS ORDERED: GABA-339 PO (03:30)
[2020-01-21] MEDS ORDERED: HCTZ25T GT (03:30)
[2020-01-21] MEDS ORDERED: LISI-648 PO (03:30)
[2020-01-21] MEDS ORDERED: LOPE2CAP PO (03:30)
[2020-01-21 03:33] VITALS: BP 158/97
[2020-01-21 04:56] VITALS: BP 145/80
[2020-01-21 05:17] LABS: Basophils # (auto) 0.1 10 ^3/uL (0-0.2); Basophils % (auto) 1.4 % (0.0-2.0); Eosinophils # (auto) 0 10 ^3/uL (0-0.8); Eosinophils % (auto) 0.2 % (0.0-7.0); Hematocrit 34.1 % (36.0-46.0); Hemoglobin 11.1 g/dL (12.2-16.2); Lymphocytes % (auto) 18.4 % (10.0-50.0); Mean Corpuscular Hemoglobin 28.8 pg (28.0-32.0); Mean Corpuscular Hgb Conc. 32.4 g/dL (32.0-36.0); Mean Corpuscular Volume 88.7 fL (80.0-100.0); Monocytes # (auto) 0.8 10 ^3/uL (0-1.3); Monocytes % (auto) 13.5 % (0.0-12.0); Neutrophils # (auto) 3.7 10 ^3/uL (1.6-8.6); Neutrophils % (auto) 66.5 % (37.0-80.0); Nucleated Red Blood Cells % 0.2 %; Platelet Count (auto) 158 10^3/uL (140-450); Red Blood Cells 3.85 10^6/uL (4.0-5.20); Red Cell Distribution Width 19.7 % (11.8-14.3); White Blood Cell 5.6 10^3/uL (4.4-10.8)
[2020-01-21 05:38] LABS: Albumin 3.5 g/dL (3.4-5.0); Magnesium 2.2 mg/dL (1.6-2.6)
[2020-01-21 05:41] LABS: Bilirubin, Total 1.9 mg/dL (0.2-1.0); Total Protein 7.4 g/dL (6.4-8.2)
[2020-01-21 05:46] LABS: Potassium 2.5 mmol/L (3.5-5.1)
--- NOTE | 2020-01-21 05:59 | NUR ---
Received call from lab for Critical Potassium of 2.5. Paged Dr. Melissa Muñoz. Left message.
--- NOTE | 2020-01-21 06:14 | NUR ---
Received call back from Dr. Tomlinson for new orders of 80 meq KCL IV. Will place order and administer accordingly.
[2020-01-21] MEDS ORDERED: POTASSIUM CHLORIDE 80 MEQ, LIDOCAINE 1% (LOCAL ANESTH.) 6 ML in SODIUM CHL 0.9% 500 ML IV ONE (06:15)
[2020-01-21] MEDS: GABAPENTIN 300 MG CAP PO SCH ×3 (06:40→22:13)
--- NOTE | 2020-01-21 07:48 | NUR ---
Opening Shift Note Assumed care of patient, awake and alert. No S/S of distress/SOB or pain. Instructed on POC and to call for assist PRN, will continue to monitor for changes Q1hr and PRN.
--- NOTE | 2020-01-21 08:42 | NUR ---
ROUNDING MD HARRELL AT BEDSIDE. ALL QUESTIONS AND CONCERNS ADDRESSED AT THIS TIME
[2020-01-21 09:00] VITALS: BP 132/78
--- NOTE | 2020-01-21 10:20 | NUR ---
MARIA DE JESUS HARRELL RE: ABDOMINAL CT RESULTS NEW ORDERS RECEIVED FOR PELVIC US AND OBGYN CONSULT
--- NOTE | 2020-01-21 10:50 | NUR ---
REPORT CALLED TO BILLIE FERNANDEZ
[2020-01-21] MEDS: FOLIC ACID 1 MG in D5W 5% 50 ML INJ SCH (11:18)
--- NOTE | 2020-01-21 12:00 | NUR ---
PATIENT TRANSFERRED TO ROOM 249B CARE ENDORSED TO BILLIE FERNANDEZ. HOME MEDICATIONS WITH PATIENT IN PHARMACY HOME MEDICATION BAG. BILLIE FERNANDEZ AWARE. NO S/S OR COMPLAINTS OF SOB OR PAIN AT TIME OF TRANSFER
--- NOTE | 2020-01-21 12:05 | NUR ---
Telemetry patient from [facility] Received patient from [facility] after receiving report. Patient is awake, alert and oriented x4. Telemetry #37 sinus rhythm 75. Patient is on room air, respirations even and unlabored. Patient denies pain at this time. Reviewed plan of care with patient, patient verbalized understanding. Bed in low and locked position, call light within reach. Will continue to monitor Q1 hour and PRN.
[2020-01-21 12:45] VITALS: BP 140/78
[2020-01-21 16:28] VITALS: BP 131/94
--- NOTE | 2020-01-21 19:21 | NUR ---
Closing Note Report given to maintenance supervisor 2nd shift RN. No signs or symptoms of distress noted at this time.
--- NOTE | 2020-01-21 19:35 | NUR ---
Opening Shift Note Assumed care of patient, awake and alert. No S/S of distress/SOB or pain. Fall, seizure, and safety precautions in place. Call light within reach and able to use. Instructed on POC and to call for assist PRN, patient verbalized understanding and in agreement. Will continue to monitor for changes Q1hr and PRN.
--- NOTE | 2020-01-21 19:55 | NUR ---
iIV removal IV to left AC DC'd with clean sterile technique, catheter fully intact. Pressure dressing applied to site. Patient educated to maintain presure dressing to prevent bleeding/bruising, patient verbalized understanding and in agreement. Patient tolerated well. Will continue to monitor.
--- NOTE | 2020-01-21 20:00 | NUR ---
IV insertion IV access obtained, via clean sterile technique by inserting 22 gauge catheter at right hand on first attempt. IV secured properly. No trauma to site. Patient tolerated well. Will continue to monitor.
--- NOTE | 2020-01-21 22:25 | NUR ---
C/O Insomnia Patient complaining of inability to sleep despite being very tired. Patient requesting medication to help her sleep. Paged Dr. Ames's office at this time, connected to Dr. Mills (covering for Hui). Updated MD on patient status and current complaint. New order received, read back and verified (see new orders). Will carry out. Will continue to monitor.
[2020-01-21] MEDS ORDERED: ZOLPIDEM TARTRATE 5 MG TAB PO ONE (22:30)
[2020-01-21 22:31] VITALS: BP 142/83
[2020-01-22] MEDS: SODIUM CHLORIDE 0.9% 1,000 ML IV SCH ×2 (03:46→15:27)
[2020-01-22 05:30] VITALS: BP 143/95
[2020-01-22] MEDS: GABAPENTIN 300 MG CAP PO SCH ×3 (05:43→21:19)
[2020-01-22] MEDS: THIAMINE 100mg/ml INJ (200mg/2ml VIAL) IV SCH (08:24)
[2020-01-22] MEDS: amLODIPine BESYLATE 5 MG TAB PO SCH (08:24)
--- NOTE | 2020-01-22 08:30 | NUR ---
DR. FRIED AT BEDSIDE PATIENT INFORMED ABOUT POC. NO NEW ORDERS IMPLEMENTED. Addendum: 01/22/20 at 1329 by ANALY MENDOZA RN RN REPEAT NOTE
--- NOTE | 2020-01-22 08:30 | NUR ---
DR. FRIED AT BEDSIDE DR. FRIED AT BEDSIDE WITH THIS NURSE, PATIENT INFORMED OF POC.
[2020-01-22 09:00] VITALS: BP 153/97
[2020-01-22] MEDS: levETIRAcetam 500 MG TAB PO SCH ×2 (09:57→21:19)
[2020-01-22 10:10] LABS: Basophils # (auto) 0.1 10 ^3/uL (0-0.2); Basophils % (auto) 1.8 % (0.0-2.0); Eosinophils # (auto) 0.1 10 ^3/uL (0-0.8); Eosinophils % (auto) 2.3 % (0.0-7.0); Hematocrit 34.4 % (36.0-46.0); Hemoglobin 11.2 g/dL (12.2-16.2); Lymphocytes # (auto) 0.9 10 ^3/uL (0.4-5.4); Mean Corpuscular Hemoglobin 28.9 pg (28.0-32.0); Mean Corpuscular Hgb Conc. 32.5 g/dL (32.0-36.0); Mean Corpuscular Volume 88.8 fL (80.0-100.0); Monocytes # (auto) 0.6 10 ^3/uL (0-1.3); Monocytes % (auto) 16.3 % (0.0-12.0); Neutrophils % (auto) 54.6 % (37.0-80.0); Nucleated Red Blood Cells % 0.4 %; Platelet Count (auto) 148 10^3/uL (140-450); Red Blood Cells 3.88 10^6/uL (4.0-5.20); Red Cell Distribution Width 19.8 % (11.8-14.3); White Blood Cell 3.6 10^3/uL (4.4-10.8)
[2020-01-22 10:30] LABS: Albumin 3.2 g/dL (3.4-5.0); Calcium 7.3 mg/dL (8.5-10.1); Magnesium 1.4 mg/dL (1.6-2.6)
[2020-01-22 10:33] LABS: BUN/Creatinine Ratio 2.9; Bilirubin, Total 1.4 mg/dL (0.2-1.0); Total Protein 6.7 g/dL (6.4-8.2)
[2020-01-22 10:36] LABS: Phosphorus 0.8 mg/dL (2.5-4.90); Potassium 2.9 mmol/L (3.5-5.1)
[2020-01-22] MEDS: FOLIC ACID 1 MG in D5W 5% 50 ML INJ SCH (10:39)
--- NOTE | 2020-01-22 10:52 | NUR ---
DR. PARRA PAGED DR. PARRA PAGED ON CRITICAL VALUES OF POTASSIUM LEVEL 2.9, PHOSPHOROUS LEVEL 0.8. AWAITING A CALL BACK.
--- NOTE | 2020-01-22 11:18 | NUR ---
Opening Shift Note Assumed care of patient, patient asleep. No S/S of distress/SOB or pain. NS 0.9% running at 100 ml/hr. Seizure precautions in place. bed in lowest position, call light within reach. Will continue to monitor for changes Q1hr and PRN.
--- NOTE | 2020-01-22 12:25 | NUR ---
DR PARRA AT BEDSIDE PER DR. PARRA'S REQUEST PATIENT MOVED TO ROOM 204 CLOSER TO THE NURSING STATION. NEW ORDERS IMPLEMENTED FOR ADVANCE DIET FROM CLEAR LIQUIDS TO SOFT DIET, POTASSIUM AND MAGNESIUM ORDER.
[2020-01-22] MEDS ORDERED: POTASSIUM CHLORIDE 80 MEQ, LIDOCAINE 1% (LOCAL ANESTH.) 6 ML in SODIUM CHL 0.9% 500 ML IV ONE (12:30)
[2020-01-22 13:01] VITALS: BP 140/96
[2020-01-22] MEDS: MAGNESIUM SULFATE 1GM/100ML 100 ML IV SCH ×2 (14:00→15:27)
[2020-01-22 17:00] VITALS: BP 144/102
[2020-01-22] MEDS ORDERED: MAGNESIUM SULFATE 1GM/100ML 100 ML IV SCH (19:00)
--- NOTE | 2020-01-22 19:10 | NUR ---
Closing Note Report given to barrel raiser helper RN. No signs or symptoms of distress noted at this time.
--- NOTE | 2020-01-22 19:30 | NUR ---
Opening Shift Note Assumed care of patient, AOX4. Fall, seizure, and safety precautions in place. No S/S of distress/SOB or pain. Call light within reach and able to use. Instructed on POC and to call for assist PRN, patient verbalized understanding and in agreement. Will continue to monitor for changes Q1hr and PRN.
[2020-01-22 21:00] VITALS: BP 148/106
[2020-01-22] MEDS: LORazepam 0.5 MG TAB PO PRN (21:28)
[2020-01-23] MEDS: SODIUM CHLORIDE 0.9% 1,000 ML IV SCH ×2 (01:15→05:47)
[2020-01-23 05:00] VITALS: BP 134/98
[2020-01-23] MEDS: GABAPENTIN 300 MG CAP PO SCH ×3 (05:47→21:02)
[2020-01-23 06:30] LABS: Basophils # (auto) 0 10 ^3/uL (0-0.2); Basophils % (auto) 1.1 % (0.0-2.0); Eosinophils # (auto) 0.1 10 ^3/uL (0-0.8); Eosinophils % (auto) 2.8 % (0.0-7.0); Hematocrit 40.4 % (36.0-46.0); Hemoglobin 12.8 g/dL (12.2-16.2); Lymphocytes % (auto) 25.4 % (10.0-50.0); Mean Corpuscular Hemoglobin 28.4 pg (28.0-32.0); Mean Corpuscular Hgb Conc. 31.8 g/dL (32.0-36.0); Mean Corpuscular Volume 89.6 fL (80.0-100.0); Monocytes # (auto) 0.6 10 ^3/uL (0-1.3); Neutrophils # (auto) 2.3 10 ^3/uL (1.6-8.6); Neutrophils % (auto) 56.7 % (37.0-80.0); Nucleated Red Blood Cells % 0.2 %; Platelet Count (auto) 166 10^3/uL (140-450); Red Blood Cells 4.52 10^6/uL (4.0-5.20); Red Cell Distribution Width 19.6 % (11.8-14.3); White Blood Cell 4.1 10^3/uL (4.4-10.8)
--- NOTE | 2020-01-23 07:00 | NUR ---
OPENING SHIFT NOTE RECEIVED REPORT ON THE PATIENT. AWAKE LYING IN BED. PATIENT SHOWS NO SIGNS OF DISTRESS AT THIS TIME. DISCUSSED THE PLAN OF CARE WITH THE PATIENT. BED IN LOWEST POSITION, SIDE RAILS UP X2, AND THE CALL LIGHT IS WITHIN REACH.
[2020-01-23 07:03] LABS: Chloride 104 mmol/L (98-107); Potassium 3.4 mmol/L (3.5-5.1); Sodium 138 mmol/L (136-145)
[2020-01-23 07:08] LABS: Albumin 3.5 g/dL (3.4-5.0); Anion Gap 8 (5-15); BUN/Creatinine Ratio 1.9; Blood Urea Nitrogen < 1 mg/dL (7-18); Calcium 8.1 mg/dL (8.5-10.1); Carbon Dioxide 26 mmol/L (21-32); GFR African American 160 mL/min; GFR Non-African American 132 mL/min; Glucose 101 mg/dL (74-106)
[2020-01-23 07:11] LABS: Alanine Aminotransferase 54 U/L (13-56); Alkaline Phosphatase 97 U/L (45-117); Aspartate Aminotransferase 124 U/L (15-37); Bilirubin, Total 1.3 mg/dL (0.2-1.0); Total Protein 7.8 g/dL (6.4-8.2)
[2020-01-23 09:00] VITALS: BP 151/95
[2020-01-23] MEDS: levETIRAcetam 500 MG TAB PO SCH ×2 (10:18→21:00)
[2020-01-23] MEDS: FOLIC ACID 1 MG in D5W 5% 50 ML INJ SCH (10:18)
[2020-01-23] MEDS: THIAMINE 100mg/ml INJ (200mg/2ml VIAL) IV SCH (10:18)
[2020-01-23] MEDS: amLODIPine BESYLATE 5 MG TAB PO SCH (10:19)
[2020-01-23 13:00] VITALS: BP 149/105
[2020-01-23] MEDS ORDERED: POTASSIUM CHLORIDE 40 MEQ, LIDOCAINE 1% (LOCAL ANESTH.) 4 ML in SODIUM CHL 0.9% 250 ML IV ONE (15:00)
[2020-01-23 17:02] VITALS: BP 152/108
--- NOTE | 2020-01-23 19:45 | NUR ---
Opening Shift Note Assumed care of patient, awake and AOX4. No S/S of distress/SOB or pain. Fall, seizure, and safety precautions in place. Call light within reach and able to use. Instructed on POC and to call for assist PRN, patient verbalized understanding and in agreement. Will continue to monitor for changes Q1hr and PRN.
[2020-01-23] MEDS: LORazepam 0.5 MG TAB PO PRN (21:02)
[2020-01-23] MEDS: PROPRANOLOL HCL 20 MG TAB PO SCH (21:02)
[2020-01-23 23:30] VITALS: BP 137/104
--- NOTE | 2020-01-24 00:31 | NUR ---
ACTIVE UNCONTROLLED NOSE BLEED - AIDA PRETTY PATIENT HAS SUDDEN ONSET OF CONSIDERABLE NOSE BLEED (LIKELY ANTERIOR) THROUGH BOTH NARES. ATTEMPTED TO CONTROL NOSE BLEED HOWEVER BLEEDING HAS NOT CEASED. DR. AIDA PRETTY. AWAITING CALL BACK. WILL CONTINUE TO MONITOR.
--- NOTE | 2020-01-24 00:35 | NUR ---
DR PARRA CALLS BACK RECEIVED A CALL BACK AT THIS TIME FROM DR. PARRA. UPDATED MD ON PATIENT STATUS AND RECENT EVENT WITH SUDDEN ONSET OF NOSE BLEED. NOTIFIED MD THAT PATIENT HAS NOT HAD A NOSE BLEED SINCE CHILDHOOD AND BLEEDING HAS NOT STOPPED. RECEIVED NEW ORDER TO PACK NARES (WITH RHINO ROCKET). WILL CARRY OUT. WILL CONTINUE TO MONITOR.
--- NOTE | 2020-01-24 00:50 | NUR ---
NOSE BLEED STOPS PATIENT'S NOSE BLEED STOPS AT THIS TIME. NARES CHECKED AND NO MORE BLEEDING AT THIS TIME. FOR THIS REASON, ORDER FOR RHINO ROCKET NOT CARRIED OUT. PETROLEUM GAUZE ROLLS LIGHTLY PACKED INTO PATIENT'S NARES PREVENTATIVE. WILL CONTINUE TO MONITOR.
[2020-01-24] MEDS: LORazepam 2MG/ML-1ML VIAL IV PRN (01:14)
[2020-01-24 05:22] LABS: Basophils # (auto) 0.1 10 ^3/uL (0-0.2); Basophils % (auto) 1.4 % (0.0-2.0); Eosinophils # (auto) 0.2 10 ^3/uL (0-0.8); Eosinophils % (auto) 3.2 % (0.0-7.0); Hematocrit 36.3 % (36.0-46.0); Hemoglobin 11.4 g/dL (12.2-16.2); Lymphocytes # (auto) 1.1 10 ^3/uL (0.4-5.4); Lymphocytes % (auto) 23.6 % (10.0-50.0); Mean Corpuscular Hemoglobin 28.4 pg (28.0-32.0); Mean Corpuscular Hgb Conc. 31.5 g/dL (32.0-36.0); Mean Corpuscular Volume 90.3 fL (80.0-100.0); Monocytes # (auto) 0.6 10 ^3/uL (0-1.3); Monocytes % (auto) 12.4 % (0.0-12.0); Neutrophils # (auto) 2.9 10 ^3/uL (1.6-8.6); Neutrophils % (auto) 59.4 % (37.0-80.0); Nucleated Red Blood Cells % 0.1 %; Platelet Count (auto) 183 10^3/uL (140-450); Red Blood Cells 4.02 10^6/uL (4.0-5.20); Red Cell Distribution Width 19.5 % (11.8-14.3); White Blood Cell 4.8 10^3/uL (4.4-10.8)
[2020-01-24] MEDS: GABAPENTIN 300 MG CAP PO SCH ×3 (05:25→21:01)
[2020-01-24 05:30] VITALS: BP 130/78
[2020-01-24 05:49] LABS: Potassium 2.9 mmol/L (3.5-5.1)
--- NOTE | 2020-01-24 05:49 | NUR ---
CRITICAL K+ RECEIVED A CALL FROM LAB AT THIS TIME. POTASSIUM 2.9. CLARE ROBIN MD.
--- NOTE | 2020-01-24 05:50 | NUR ---
IADA PAGED FOR CRITICAL PAGED DR PARRA AT THIS TIME FOR PATIENT'S K+ CRITICAL LAB VALUE. AWAITING CALL BACK. WILL CONTINUE TO MONITOR.
[2020-01-24 05:56] LABS: Albumin 3.3 g/dL (3.4-5.0); Bilirubin, Total 1.1 mg/dL (0.2-1.0); Calcium 8.9 mg/dL (8.5-10.1); Total Protein 7.3 g/dL (6.4-8.2)
[2020-01-24] MEDS ORDERED: POTASSIUM CHLORIDE 80 MEQ, LIDOCAINE 1% (LOCAL ANESTH.) 6 ML in SODIUM CHL 0.9% 500 ML IV ONE (06:15)
--- NOTE | 2020-01-24 06:16 | NUR ---
AIDA CALL BACK RECEIVED A CLL BACK FROM DR. PARRA AT THIS TIME. UPDATED MD ON PATIENT STATUS. NEW ORDERS RECEIVED, READ BACK AND VERIFIED (SEE NEW ORDERS). WILL CARRY OUT. WILL CONTINUE TO MONITOR.
--- NOTE | 2020-01-24 06:32 | NUR ---
PHARMACY CALLED FOR MED CALLED PHARMACY AT THIS TIME TO CHECK ON K+ MEDICATION AVAILABILITY. PHARMACIST STATES SHE DOES NOT HAVE A TECH AT THIS TIME AND WILL SEND MEDICATION UP SOON POSSIBLE. WILL CONTINUE TO MONITOR.
[2020-01-24 08:40] VITALS: BP 145/106
[2020-01-24] MEDS: levETIRAcetam 500 MG TAB PO SCH ×2 (09:16→21:01)
[2020-01-24] MEDS: THIAMINE 100mg/ml INJ (200mg/2ml VIAL) IV SCH (09:16)
[2020-01-24] MEDS: PROPRANOLOL HCL 20 MG TAB PO SCH ×2 (09:16→21:02)
[2020-01-24] MEDS: amLODIPine BESYLATE 5 MG TAB PO SCH (09:17)
[2020-01-24] MEDS: FOLIC ACID 1 MG in D5W 5% 50 ML INJ SCH (10:00)
--- NOTE | 2020-01-24 11:46 | NUR ---
Nutrition Assessment Notes please see attached link for complete assessment Est Energy needs BW 81 [id number] kcals (23-25 kcal/kgBW), Est Protein needs: 81-89 gms/day (1.0-1.1 gm/kgBW). Will continue to monitor and reassess prn. Addendum: 01/24/20 at [address] Amended: Links added.
--- NOTE | 2020-01-24 12:30 | NUR ---
PAGED DR PARRA REGARDING THE PATIENT'S BLOOD PRESSURE OF 145/102. AWAITING A CALL BACK.
--- NOTE | 2020-01-24 12:52 | NUR ---
DR PARRA CALED BACK AND NEW ORDERS WERE RECEIVED.
[2020-01-24 13:00] VITALS: BP 142/102
[2020-01-24] MEDS ORDERED: LISINOPRIL 10 MG TAB PO ONE (13:00)
--- NOTE | 2020-01-24 14:19 | NUR ---
REASSESSED BP NOW 139/100 HR 83.
--- NOTE | 2020-01-24 15:41 | NUR ---
IV insertion IV access obtained, via clean sterile technique by inserting 22 gauge catheter at the left forearm after 1 attempt(s). IV secured properly. No trauma to site. Patient tolerated well.
--- NOTE | 2020-01-24 15:41 | NUR ---
IV removal IV DC'd with clean sterile technique, catheter fully intact. Pressure dressing applied to site. Patient tolerated well.
[2020-01-24 16:24] VITALS: BP 138/105
--- NOTE | 2020-01-24 19:10 | NUR ---
Opening Shift Note Assumed care of patient, awake and alert. No S/S of distress/SOB or pain. Suction set up, patient refused padded side rails. Bed locked in lowest position, side rails up X2, call light within reach. Instructed on POC and to call for assist PRN, will continue to monitor for changes Q1hr and PRN.
--- NOTE | 2020-01-24 19:30 | NUR ---
BLOOD PRESSURE 149/115
[2020-01-24] MEDS: POTASSIUM CHL 20 Meq TABLET PO SCH (21:03)
[2020-01-24] MEDS: LORazepam 0.5 MG TAB PO PRN (21:40)
--- NOTE | 2020-01-24 21:44 | NUR ---
BLOOD PRESSURE REASSESSMENT 142/93
[2020-01-24 22:00] VITALS: BP 142/93
--- NOTE | 2020-01-24 23:07 | NUR ---
ROUNDS PATIENT RESTING ON LEFT SIDE, NO SIGNS OF DISTRESS/ SOB AT THIS TIME.
--- NOTE | 2020-01-25 04:13 | NUR ---
NAUSEA PATIENT STATES SHE IS NAUSEOUS, DID NOT WANT PHARMACOLOGICAL INTERVENTION. PROVIDED SALTINE CRACKERS
[2020-01-25 05:00] VITALS: BP 135/91
[2020-01-25 05:11] LABS: Basophils # (auto) 0.1 10 ^3/uL (0-0.2); Basophils % (auto) 1.7 % (0.0-2.0); Eosinophils # (auto) 0.1 10 ^3/uL (0-0.8); Eosinophils % (auto) 2.5 % (0.0-7.0); Hemoglobin 11.4 g/dL (12.2-16.2); Lymphocytes # (auto) 1.1 10 ^3/uL (0.4-5.4); Mean Corpuscular Hemoglobin 28.3 pg (28.0-32.0); Mean Corpuscular Hgb Conc. 31.7 g/dL (32.0-36.0); Mean Corpuscular Volume 89.2 fL (80.0-100.0); Monocytes # (auto) 0.9 10 ^3/uL (0-1.3); Monocytes % (auto) 16.1 % (0.0-12.0); Neutrophils # (auto) 3.4 10 ^3/uL (1.6-8.6); Neutrophils % (auto) 60.7 % (37.0-80.0); Nucleated Red Blood Cells % 0.1 %; Platelet Count (auto) 208 10^3/uL (140-450); Red Blood Cells 4.04 10^6/uL (4.0-5.20); White Blood Cell 5.7 10^3/uL (4.4-10.8)
[2020-01-25 05:19] LABS: Red Cell Distribution Width 19.9 % (11.8-14.3)
[2020-01-25 05:30] LABS: Albumin 3.5 g/dL (3.4-5.0); Magnesium 1.8 mg/dL (1.6-2.6); Potassium 3.7 mmol/L (3.5-5.1)
[2020-01-25 05:34] LABS: Bilirubin, Total 0.9 mg/dL (0.2-1.0); Total Protein 7.5 g/dL (6.4-8.2)
[2020-01-25] MEDS: GABAPENTIN 300 MG CAP PO SCH (05:37)
--- NOTE | 2020-01-25 07:00 | NUR ---
OPENING SHIFT NOTE RECEIVED REPORT ON THE PATIENT. AWAKE LYING IN BED. PATIENT SHOWS NO SIGNS OF DISTRESS AT THIS TIME. DISCUSSING THE PLAN OF CARE WITH THE PATIENT. BED IN LOWEST POSITION, SIDE RAILS UP X2, AND THE CALL LIGHT IS WITHIN REACH.
[2020-01-25 08:24] VITALS: BP 141/92
[2020-01-25] MEDS: FOLIC ACID 1 MG in D5W 5% 50 ML INJ SCH (10:00)
[2020-01-25] MEDS ORDERED: LISINOPRIL 10 MG TAB PO SCH (10:00)
[2020-01-25] MEDS: THIAMINE 100mg/ml INJ (200mg/2ml VIAL) IV SCH (10:42)
[2020-01-25] MEDS: amLODIPine BESYLATE 5 MG TAB PO SCH (10:43)
[2020-01-25] MEDS: PROPRANOLOL HCL 20 MG TAB PO SCH (10:43)
[2020-01-25] MEDS: levETIRAcetam 500 MG TAB PO SCH (10:43)
[2020-01-25] MEDS: POTASSIUM CHL 20 Meq TABLET PO SCH (10:43)
[2020-01-25 10:57] VITALS: BP 141/92
== END 2020-01-25 11:42 | disposition home or self-care (01) | DRG 53 ==
LOC: ER 15:37 → EDBD 15:37 → TELE 15:38 → TELE-EAST 23:00 → TELE-CENTR 01-22 12:55
PROVIDERS: ADMIT Internal Medicine; ATTEND Internal Medicine
DX: G40.909 Epilepsy, unspecified, not intractable, without status epilepticus (principal); E87.6 Hypokalemia; K52.9 Noninfective gastroenteritis and colitis, unspecified; E83.42 Hypomagnesemia; E86.0 Dehydration; K29.20 Alcoholic gastritis without bleeding; I10 Essential (primary) hypertension; D64.9 Anemia, unspecified; F10.229 Alcohol dependence with intoxication, unspecified; F10.231 Alcohol dependence with withdrawal delirium; F41.9 Anxiety disorder, unspecified; K76.0 Fatty (change of) liver, not elsewhere classified; Z20.828 Contact with and (suspected) exposure to other viral communicable diseases; Z79.899 Other long term (current) drug therapy; Z80.3 Family history of malignant neoplasm of breast; Z82.49 Family history of ischemic heart disease and other diseases of the circulatory system; Z83.2 Family history of diseases of the blood and blood-forming organs and certain disorders involving the immune mechanism; Z83.3 Family history of diabetes mellitus; Z91.14 Patient's other noncompliance with medication regimen; D28.7 Benign neoplasm of other specified female genital organs; Y90.9 Presence of alcohol in blood, level not specified
CPT/HCPCS: 36415; 70450; 71045; 72125; 74176; 76700; 76856; 80053; 80307; 80320; 81001; 83605; 83690; 83735; 84100; 84702; 85025; 85610; 85730; 87426; 96361; 96365; 96375; G0378; J2001; J2405; J3480; J7060

== ENCOUNTER 2020-05-23 21:52 | Emergency (ER) | payer MEDICAID ==
[~2020-05-23] VITALS: Ht 177.8 cm; Wt 68.0 kg
[~2020-05-23 21:52] MED LIST changes: +GABA-339 PO; +HYDR25TA5 GT; +LISI-648 PO; +LOPE2CAP PO
[2020-05-23] MEDS ORDERED: THIAMINE 100mg/ml INJ (200mg/2ml VIAL) IV ONE (23:00)
[2020-05-23] MEDS ORDERED: chlordiazePOXIDE HCL 25 MG CAP PO ONE (23:00)
[2020-05-23] MEDS ORDERED: FOLIC ACID 1 MG in D5W 5% 50 ML INJ ONE (23:00)
[2020-05-23 23:18] LABS: Eosinophils # (auto) 0 10 ^3/uL (0-0.8); Hematocrit 27.3 % (36.0-46.0); Hemoglobin 8.4 g/dL (12.2-16.2); Monocytes # (auto) 0.5 10 ^3/uL (0-1.3); White Blood Cell 4.6 10^3/uL (4.4-10.8)
[2020-05-23 23:20] LABS: Basophils # (auto) 0.1 10 ^3/uL (0-0.2); Basophils % (auto) 2.4 % (0.0-2.0); Eosinophils % (auto) 0.6 % (0.0-7.0); Lymphocytes % (auto) 43.9 % (10.0-50.0); Mean Corpuscular Hemoglobin 22.1 pg (28.0-32.0); Mean Corpuscular Hgb Conc. 30.7 g/dL (32.0-36.0); Mean Corpuscular Volume 71.8 fL (80.0-100.0); Monocytes % (auto) 10.7 % (0.0-12.0); Neutrophils # (auto) 1.9 10 ^3/uL (1.6-8.6); Neutrophils % (auto) 42.4 % (37.0-80.0); Nucleated Red Blood Cells % 0.2 %; Platelet Count (auto) 265 10^3/uL (140-450); Red Cell Distribution Width 23.6 % (11.8-14.3)
[2020-05-23 23:35] LABS: Albumin 3.8 g/dL (3.4-5.0); Calcium 8.4 mg/dL (8.5-10.1); Potassium 3.6 mmol/L (3.5-5.1)
[2020-05-23 23:41] LABS: BUN/Creatinine Ratio 12.1; Bilirubin, Total 0.3 mg/dL (0.2-1.0)
[2020-05-24 00:19] VITALS: BP 113/68
== END 2020-05-24 03:26 | disposition home or self-care (01) ==
LOC: EDBD 21:52 → ER 21:52
DX: F10.239 Alcohol dependence with withdrawal, unspecified (principal); R56.9 Unspecified convulsions; F41.9 Anxiety disorder, unspecified; I10 Essential (primary) hypertension; Z79.899 Other long term (current) drug therapy; Y90.9 Presence of alcohol in blood, level not specified
CPT/HCPCS: 36415; 80053; 85025; 93005; 96374; 99284; J3411; J7060

== ENCOUNTER 2020-07-24 12:25 | Inpatient (IN) | payer MEDICAID ==
[~2020-07-24] VITALS: Ht 185.4 cm; Wt 78.9 kg
[~2020-07-24 12:25] MED LIST changes: -LISI-648 PO; +LISI-716 PO
[2020-07-24] MEDS ORDERED: SODIUM CHLORIDE 0.9% 1,000 ML IV ONE ×2 (12:45)
[2020-07-24] MEDS ORDERED: LORazepam 2MG/ML-1ML VIAL ONE (13:21)
[2020-07-24 13:26] LABS: Eosinophils # (auto) 0 10 ^3/uL (0-0.8); Hemoglobin 9.3 g/dL (12.2-16.2); Monocytes # (auto) 0.5 10 ^3/uL (0-1.3); White Blood Cell 7.9 10^3/uL (4.4-10.8)
[2020-07-24 13:28] LABS: Basophils # (auto) 0.2 10 ^3/uL (0-0.2); Basophils % (auto) 2.4 % (0.0-2.0); Hematocrit 30.6 % (36.0-46.0); Lymphocytes # (auto) 0.5 10 ^3/uL (0.4-5.4); Mean Corpuscular Hemoglobin 21.3 pg (28.0-32.0); Mean Corpuscular Hgb Conc. 30.2 g/dL (32.0-36.0); Mean Corpuscular Volume 70.5 fL (80.0-100.0); Neutrophils # (auto) 6.7 10 ^3/uL (1.6-8.6); Neutrophils % (auto) 84.6 % (37.0-80.0); Red Blood Cells 4.34 10^6/uL (4.0-5.20)
[2020-07-24 13:31] LABS: Red Cell Distribution Width 24.3 % (11.8-14.3)
[2020-07-24 13:35] LABS: Urine Bacteria NONE SEEN /hpf (None Seen); Urine Blood TRACE /uL (Negative); Urine WBC 14 /hpf (0 - 5)
[2020-07-24 13:43] LABS: Albumin 4.4 g/dL (3.4-5.0); Anion Gap 25 (5-15); Blood Urea Nitrogen 7 mg/dL (7-18); Calcium 8.5 mg/dL (8.5-10.1); Carbon Dioxide 18 mmol/L (21-32); Chloride 93 mmol/L (98-107); Glucose 91 mg/dL (74-106); Sodium 136 mmol/L (136-145)
[2020-07-24] MEDS ORDERED: LORazepam 2MG/ML-1ML VIAL IV ONE (13:45)
[2020-07-24 13:49] LABS: Alanine Aminotransferase 104 U/L (13-56); Alkaline Phosphatase 123 U/L (45-117); Aspartate Aminotransferase 309 U/L (15-37); BUN/Creatinine Ratio 12.1; Bilirubin, Total 1.6 mg/dL (0.2-1.0); GFR African American 147 mL/min; GFR Non-African American 122 mL/min; Total Protein 9.6 g/dL (6.4-8.2)
[2020-07-24] MEDS ORDERED: PROMETHAZINE HCL 25 MG/ML 1ML IV ONE (14:00)
[2020-07-24 14:03] LABS: Potassium 2.5 mmol/L (3.5-5.1)
[2020-07-24] MEDS: POTASSIUM CHL 20MEQ/100ML 100 ML IV SCH ×4 (14:58→21:27)
[2020-07-24] MEDS ORDERED: MORPHINE SULFATE INJECTION 2 MG/ML SYRG IV PRN ×2 (16:30)
[2020-07-24] MEDS ORDERED: traMADol HCL 50 MG TAB PO PRN (16:30)
[2020-07-24] MEDS ORDERED: NITROGLYCERIN 0.4 MG SL TAB SL PRN (16:30)
[2020-07-24] MEDS ORDERED: THIAMINE 100mg/ml INJ (200mg/2ml VIAL) IV ONE (16:30)
[2020-07-24] MEDS ORDERED: chlordiazePOXIDE HCL 25 MG CAP PO ONE (16:30)
[2020-07-24] MEDS ORDERED: LORazepam 2MG/ML-1ML VIAL IV PRN (16:30)
[2020-07-24] MEDS ORDERED: LACTULOSE 20Gm/30ML SOLN PO PRN (16:30)
[2020-07-24] MEDS ORDERED: PROMETHAZINE HCL 25 MG/ML 1ML IV PRN (16:30)
[2020-07-24] MEDS ORDERED: chlordiazePOXIDE HCL 25 MG CAP PO PRN (16:30)
[2020-07-24] MEDS ORDERED: POTASSIUM EFFERVESENT TAB 25 MEQ PO ONE (16:45)
[2020-07-24] MEDS: SOD CHL 0.9%/ KCL 40MEQ 1,000 ML IV SCH (16:56)
[2020-07-24] MEDS: chlordiazePOXIDE HCL 25 MG CAP PO SCH ×2 (18:19→23:34)
[2020-07-24 20:40] VITALS: BP 158/95
[2020-07-24] MEDS: GABAPENTIN 300 MG CAP PO SCH ×2 (21:28→23:34)
[2020-07-24] MEDS: levETIRAcetam 500 MG TAB PO SCH (21:29)
[2020-07-24] MEDS ORDERED: GABAPENTIN 400 MG CAP PO SCH (22:00)
[2020-07-24 22:41] VITALS: BP 158/95
[2020-07-24 23:07] LABS: Amphetamine Screen, Urine NEGATIVE (NEGATIVE); Barbiturate Scree,Urine NEGATIVE (NEGATIVE); Benzodiazephine Screen, Urine NEGATIVE (NEGATIVE); Cannabinoid Screen, Urine NEGATIVE (NEGATIVE); Cocaine Screen, Urine NEGATIVE (NEGATIVE); Opiate Scree,Urine NEGATIVE (NEGATIVE); Phencyclidine Screen, Urine NEGATIVE (NEGATIVE)
[2020-07-25 00:54] LABS: % Iron Saturation 19.8 % (15-50)
[2020-07-25] MEDS: POTASSIUM CHL 20MEQ/100ML 100 ML IV SCH (03:11)
[2020-07-25] MEDS: SOD CHL 0.9%/ KCL 40MEQ 1,000 ML IV SCH ×3 (03:11→22:34)
[2020-07-25] MEDS: chlordiazePOXIDE HCL 25 MG CAP PO SCH ×4 (05:03→23:19)
[2020-07-25 05:18] VITALS: BP 129/99
[2020-07-25 09:00] VITALS: BP 132/87
[2020-07-25] MEDS: levETIRAcetam 500 MG TAB PO SCH ×2 (09:39→20:26)
[2020-07-25] MEDS: GABAPENTIN 300 MG CAP PO SCH ×2 (09:39→20:26)
[2020-07-25] MEDS: LISINOPRIL 10 MG TAB PO SCH (09:39)
[2020-07-25] MEDS: THIAMINE 100mg/ml INJ (200mg/2ml VIAL) IV SCH (09:39)
[2020-07-25] MEDS: ENOXAPARIN SOD 40 MG/0.4 ML SYRINGE SC SCH (09:40)
[2020-07-25] MEDS: amLODIPine BESYLATE 5 MG TAB PO SCH (09:40)
[2020-07-25 10:13] LABS: Basophils # (auto) 0.1 10 ^3/uL (0-0.2); Hemoglobin 9.1 g/dL (12.2-16.2); Mean Corpuscular Volume 71.8 fL (80.0-100.0)
[2020-07-25 10:16] LABS: Basophils % (auto) 1.9 % (0.0-2.0); Eosinophils # (auto) 0.1 10 ^3/uL (0-0.8); Hematocrit 30.2 % (36.0-46.0); Lymphocytes % (auto) 19.3 % (10.0-50.0); Mean Corpuscular Hemoglobin 21.7 pg (28.0-32.0); Mean Corpuscular Hgb Conc. 30.1 g/dL (32.0-36.0); Monocytes # (auto) 0.6 10 ^3/uL (0-1.3); Monocytes % (auto) 12.2 % (0.0-12.0); Neutrophils # (auto) 3.3 10 ^3/uL (1.6-8.6); Neutrophils % (auto) 65.6 % (37.0-80.0); Nucleated Red Blood Cells % 0.1 %; White Blood Cell 5.1 10^3/uL (4.4-10.8)
[2020-07-25 10:18] LABS: Red Cell Distribution Width 24.2 % (11.8-14.3)
[2020-07-25 10:31] LABS: BUN/Creatinine Ratio 6.2; Calcium 7.7 mg/dL (8.5-10.1)
[2020-07-25 10:35] LABS: Potassium 2.8 mmol/L (3.5-5.1)
[2020-07-25 13:00] VITALS: BP 116/81
[2020-07-25] MEDS ORDERED: POTASSIUM CHL 20 Meq TABLET PO ONE (14:00)
[2020-07-25 16:38] VITALS: BP 119/77
[2020-07-25 22:00] VITALS: BP 132/96
[2020-07-26 05:00] VITALS: BP 132/91
[2020-07-26] MEDS: chlordiazePOXIDE HCL 25 MG CAP PO SCH ×2 (06:04→12:00)
[2020-07-26 06:26] LABS: Basophils # (auto) 0.1 10 ^3/uL (0-0.2); Basophils % (auto) 1.9 % (0.0-2.0); Eosinophils # (auto) 0.1 10 ^3/uL (0-0.8); Eosinophils % (auto) 1.3 % (0.0-7.0); Hematocrit 26.5 % (36.0-46.0); Lymphocytes # (auto) 0.9 10 ^3/uL (0.4-5.4); Lymphocytes % (auto) 16.8 % (10.0-50.0); Mean Corpuscular Hemoglobin 21.5 pg (28.0-32.0); Mean Corpuscular Hgb Conc. 30.3 g/dL (32.0-36.0); Mean Corpuscular Volume 71.1 fL (80.0-100.0); Monocytes # (auto) 0.5 10 ^3/uL (0-1.3); Monocytes % (auto) 8.8 % (0.0-12.0); Neutrophils % (auto) 71.2 % (37.0-80.0); Nucleated Red Blood Cells % 0.2 %; Red Blood Cells 3.73 10^6/uL (4.0-5.20); White Blood Cell 5.6 10^3/uL (4.4-10.8)
[2020-07-26 06:37] LABS: INR 1.34 (0.9-1.15)
[2020-07-26 06:42] LABS: Bilirubin, Direct 0.9 mg/dL (0-0.2); Magnesium 1.5 mg/dL (1.6-2.6); Potassium 3.3 mmol/L (3.5-5.1)
[2020-07-26 06:46] LABS: Albumin 3.2 g/dL (3.4-5.0); Bilirubin, Total 1.2 mg/dL (0.2-1.0); Total Protein 7.2 g/dL (6.4-8.2)
[2020-07-26 06:54] LABS: Red Cell Distribution Width 24.2 % (11.8-14.3)
[2020-07-26] MEDS: SOD CHL 0.9%/ KCL 40MEQ 1,000 ML IV SCH (08:30)
[2020-07-26 09:00] VITALS: BP 141/95
[2020-07-26] MEDS: levETIRAcetam 500 MG TAB PO SCH (09:57)
[2020-07-26] MEDS: GABAPENTIN 300 MG CAP PO SCH (09:57)
[2020-07-26] MEDS: amLODIPine BESYLATE 5 MG TAB PO SCH (09:58)
[2020-07-26] MEDS: LISINOPRIL 10 MG TAB PO SCH (09:59)
[2020-07-26] MEDS: ENOXAPARIN SOD 40 MG/0.4 ML SYRINGE SC SCH (10:00)
[2020-07-26] MEDS: THIAMINE 100mg/ml INJ (200mg/2ml VIAL) IV SCH (10:00)
[2020-07-26] MEDS ORDERED: POTASSIUM CHL 20 Meq TABLET PO ONE (11:15)
[2020-07-26] MEDS ORDERED: MAGNESIUM SULFATE 1GM/100ML 100 ML IV ONE (12:15)
[2020-07-26] MEDS ORDERED: CHOL500023 PO (12:18)
[2020-07-26 12:22] VITALS: BP 141/95
[2020-07-26 13:00] VITALS: BP 136/95
== END 2020-07-26 13:00 | disposition home or self-care (01) | DRG 53 ==
LOC: EDBD 12:25 → ER 12:27 → TELE 16:28 → TELE-WESTW 20:44
PROVIDERS: ADMIT Internal Medicine; ATTEND Internal Medicine
DX: G40.509 Epileptic seizures related to external causes, not intractable, without status epilepticus (principal); D69.59 Other secondary thrombocytopenia; K70.9 Alcoholic liver disease, unspecified; G62.9 Polyneuropathy, unspecified; D50.9 Iron deficiency anemia, unspecified; E87.6 Hypokalemia; F10.239 Alcohol dependence with withdrawal, unspecified; F41.9 Anxiety disorder, unspecified; G25.81 Restless legs syndrome; I10 Essential (primary) hypertension; Z20.822 Contact with and (suspected) exposure to COVID-19; E55.9 Vitamin D deficiency, unspecified; N92.0 Excessive and frequent menstruation with regular cycle; Z79.899 Other long term (current) drug therapy; Z80.3 Family history of malignant neoplasm of breast; Z82.49 Family history of ischemic heart disease and other diseases of the circulatory system; Z83.2 Family history of diseases of the blood and blood-forming organs and certain disorders involving the immune mechanism; Z83.3 Family history of diabetes mellitus; Z91.14 Patient's other noncompliance with medication regimen; Y90.9 Presence of alcohol in blood, level not specified
CPT/HCPCS: 36415; 70450; 71045; 76705; 80048; 80053; 80061; 80076; 80307; 81001; 81025; 82306; 82542; 82728; 83540; 83550; 83735; 84132; 84443; 84484; 85025; 85610; 87426; 96361; 96365; 96367; 96375; G0378; J3480; J7060

== ENCOUNTER 2020-12-16 17:01 | Emergency (ER) | payer MEDICAID, OTHER ==
[~2020-12-16] VITALS: Ht 185.4 cm; Wt 81.6 kg
[~2020-12-16 17:01] MED LIST changes: +CHOL500023 PO
[2020-12-16] MEDS ORDERED: SODIUM CHLORIDE 0.9% 1,000 ML IV ONE ×2 (17:45)
[2020-12-16 18:36] LABS: Mean Corpuscular Hemoglobin 23.8 pg (28.0-32.0)
[2020-12-16 18:38] LABS: Hematocrit 35.8 % (36.0-46.0); Hemoglobin 11.1 g/dL (12.2-16.2); Mean Corpuscular Hgb Conc. 31.1 g/dL (32.0-36.0); Mean Corpuscular Volume 76.5 fL (80.0-100.0); Red Blood Cells 4.68 10^6/uL (4.0-5.20); White Blood Cell 4.8 10^3/uL (4.4-10.8)
[2020-12-16 18:55] LABS: Albumin 4.1 g/dL (3.4-5.0); BUN/Creatinine Ratio 10.1; Calcium 8.3 mg/dL (8.5-10.1); Potassium 3.4 mmol/L (3.5-5.1)
[2020-12-16 19:02] LABS: Bilirubin, Total 0.8 mg/dL (0.2-1.0); Total Protein 9.3 g/dL (6.4-8.2)
[2020-12-16 19:03] LABS: Red Cell Distribution Width 20.1 % (11.8-14.3)
[2020-12-16 19:05] LABS: Band Neutrophils % (manual) 0; Basophils % (manual) 0 (0.0-2.0); Blast Cells 0; Metamyelocytes % 0; Myelocytes % 0; Promyelocytes % 0; Reactive Lymphocytes 0
[2020-12-16 19:57] LABS: Eosinophils % (manual) 1 (0-7); Lymphocytes % (manual) 52 (10.0-50.0); Monocytes % (manual) 10 (0-12)
[2020-12-17] MEDS ORDERED: SODIUM CHLORIDE 0.9% 3,000 ML IV ONE (05:15)
[2020-12-17] MEDS ORDERED: ONDANSETRON HCL 4 MG/2 ML VIAL IV ONE (05:15)
[2020-12-17 06:29] VITALS: BP 132/83
[2020-12-17 07:42] LABS: Urine Bacteria FEW /hpf (None Seen); Urine Blood Negative /uL (Negative); Urine Mucus MODERATE (None Seen); Urine Specific Gravity 1.022 (1.001-1.035); Urine WBC 14 /hpf (0 - 5)
[2020-12-17 07:52] LABS: Amphetamine Screen, Urine NEGATIVE (NEGATIVE); Barbiturate Scree,Urine NEGATIVE (NEGATIVE); Benzodiazephine Screen, Urine NEGATIVE (NEGATIVE); Cannabinoid Screen, Urine NEGATIVE (NEGATIVE); Cocaine Screen, Urine NEGATIVE (NEGATIVE); Opiate Scree,Urine NEGATIVE (NEGATIVE); Phencyclidine Screen, Urine NEGATIVE (NEGATIVE)
[2020-12-17] MEDS ORDERED: LORazepam 2MG/ML-1ML VIAL ONE (14:03)
== END 2020-12-17 07:58 | disposition left against medical advice (07) ==
LOC: EDBD 17:01 → ER 17:01 → EDUNIT# 17:01 → ER 12-17 07:58
DX: G93.41 Metabolic encephalopathy (principal); F10.129 Alcohol abuse with intoxication, unspecified; R41.0 Disorientation, unspecified; Y90.7 Blood alcohol level of 200-239 mg/100 ml
CPT/HCPCS: 36415; 70450; 80053; 80307; 80320; 81001; 82140; 84702; 85007; 85027; 96361; 96374; 99285; J2060; J2405; J7030

== ENCOUNTER 2021-03-30 14:50 | Emergency (ER) | payer MEDICAID ==
[~2021-03-30] VITALS: Ht 175.3 cm; Wt 77.1 kg
[2021-03-30 16:42] VITALS: BP 168/84
[2021-03-30] MEDS ORDERED: levETIRAcetam 500 MG TAB PO ONE (16:45)
[2021-03-30] MEDS ORDERED: LEVE500T32 PO (17:42)
[2021-03-30] MEDS ORDERED: HYDR25TA5 PO (17:42)
[2021-03-30] MEDS ORDERED: LISI-716 PO (17:42)
== END 2021-03-30 17:50 | disposition left against medical advice (07) ==
LOC: ER 14:50 → EDBD 14:50 → ER 17:50
DX: G40.909 Epilepsy, unspecified, not intractable, without status epilepticus (principal); I10 Essential (primary) hypertension

== ENCOUNTER 2021-08-10 01:13 | Inpatient (IN) | payer MEDICAID ==
[~2021-08-10] VITALS: Ht 185.4 cm; Wt 79.4 kg
[~2021-08-10 01:13] MED LIST changes: +HYDR25TA5 PO
[2021-08-10] MEDS ORDERED: SODIUM CHLORIDE 0.9% 1,000 ML IV ONE (02:00)
[2021-08-10] MEDS ORDERED: levETIRAcetam 500 MG/5ML INJ IV ONE (02:13)
[2021-08-10] MEDS ORDERED: LORazepam 2MG/ML-1ML VIAL IM ONE (03:00)
[2021-08-10 03:57] LABS: Basophils # (auto) 0.2 10 ^3/uL (0-0.2); Basophils % (auto) 1.8 % (0.0-2.0); Eosinophils # (auto) 0 10 ^3/uL (0-0.8); Eosinophils % (auto) 0.1 % (0.0-7.0); Hematocrit 36.6 % (36.0-46.0); Hemoglobin 11.4 g/dL (12.2-16.2); Lymphocytes # (auto) 0.4 10 ^3/uL (0.4-5.4); Mean Corpuscular Hemoglobin 26.7 pg (28.0-32.0); Mean Corpuscular Hgb Conc. 31.2 g/dL (32.0-36.0); Mean Corpuscular Volume 85.5 fL (80.0-100.0); Monocytes # (auto) 0.8 10 ^3/uL (0-1.3); Monocytes % (auto) 7.5 % (0.0-12.0); Neutrophils # (auto) 9.1 10 ^3/uL (1.6-8.6); Neutrophils % (auto) 86.6 % (37.0-80.0); Nucleated Red Blood Cells % 0.1 %; Red Blood Cells 4.28 10^6/uL (4.0-5.20); White Blood Cell 10.5 10^3/uL (4.4-10.8)
[2021-08-10 03:58] LABS: Red Cell Distribution Width 26.2 % (11.8-14.3)
[2021-08-10 04:17] LABS: Albumin 4.1 g/dL (3.4-5.0); Calcium 8.3 mg/dL (8.5-10.1)
[2021-08-10 04:19] LABS: BUN/Creatinine Ratio 5.3
[2021-08-10 04:22] LABS: Total Protein 9.6 g/dL (6.4-8.2)
[2021-08-10 04:33] LABS: Potassium 2.5 mmol/L (3.5-5.1)
[2021-08-10] MEDS ORDERED: POTASSIUM EFFERVESENT TAB 25 MEQ PO ONE (04:45)
[2021-08-10 04:49] LABS: Urine Bacteria FEW /hpf (None Seen); Urine Blood Negative /uL (Negative); Urine Specific Gravity 1.018 (1.001-1.035); Urine WBC 1 /hpf (0 - 5)
[2021-08-10] MEDS ORDERED: IOHEXOL 300 MG/ML 100ML BOTTLE IJ ONE (04:57)
[2021-08-10] MEDS ORDERED: ONDANSETRON HCL 4 MG/2 ML VIAL IV PRN (08:00)
[2021-08-10] MEDS ORDERED: MORPHINE SULFATE INJ 2 MG/ml SYRG IV PRN (08:00)
[2021-08-10] MEDS ORDERED: NITROGLYCERIN 0.4 MG SL TAB SL PRN (08:00)
[2021-08-10] MEDS: POTASSIUM CHL 20MEQ/100ML 100 ML IV SCH ×2 (09:15→12:28)
[2021-08-10] MEDS: SODIUM CHLORIDE 0.9% 1,000 ML IV SCH ×2 (09:16→21:11)
[2021-08-10] MEDS: PANTOPRAZOLE 40 MG/10 ML VIAL INJ IV SCH (10:15)
[2021-08-10] MEDS ORDERED: hydrALAZINE HCL 20 MG/ML VL IV PRN (12:00)
[2021-08-10] MEDS ORDERED: METOPROLOL TARTRATE 1MG/1ML-5ML VIAL IV PRN (16:00)
[2021-08-10] MEDS ORDERED: ACETAMINOPHEN 325 MG TAB PO PRN (18:45)
[2021-08-10] MEDS ORDERED: IBUPROFEN 600 MG TAB PO PRN (19:15)
[2021-08-10 20:00] VITALS: BP 152/101
[2021-08-10 22:00] VITALS: BP 152/101
[2021-08-11] MEDS: SODIUM CHLORIDE 0.9% 1,000 ML IV SCH ×3 (04:20→17:28)
[2021-08-11 05:00] VITALS: BP 142/98
[2021-08-11 06:41] LABS: Basophils # (auto) 0.1 10 ^3/uL (0-0.2); Eosinophils # (auto) 0.1 10 ^3/uL (0-0.8); Lymphocytes # (auto) 1.2 10 ^3/uL (0.4-5.4)
[2021-08-11 06:43] LABS: Eosinophils % (auto) 0.9 % (0.0-7.0); Hematocrit 31.1 % (36.0-46.0); Hemoglobin 10.3 g/dL (12.2-16.2); Lymphocytes % (auto) 19.8 % (10.0-50.0); Mean Corpuscular Hemoglobin 27.3 pg (28.0-32.0); Mean Corpuscular Hgb Conc. 33.2 g/dL (32.0-36.0); Mean Corpuscular Volume 82.4 fL (80.0-100.0); Monocytes # (auto) 0.9 10 ^3/uL (0-1.3); Neutrophils # (auto) 3.8 10 ^3/uL (1.6-8.6); Neutrophils % (auto) 63.3 % (37.0-80.0); Red Blood Cells 3.77 10^6/uL (4.0-5.20)
[2021-08-11 06:50] LABS: Red Cell Distribution Width 25.5 % (11.8-14.3)
[2021-08-11 06:58] LABS: Albumin 3.1 g/dL (3.4-5.0); Calcium 7.2 mg/dL (8.5-10.1)
[2021-08-11 07:04] LABS: BUN/Creatinine Ratio 5.5; Bilirubin, Total 2.5 mg/dL (0.2-1.0); Magnesium 1.5 mg/dL (1.6-2.6); Phosphorus 1.4 mg/dL (2.5-4.90); Total Protein 7.2 g/dL (6.4-8.2)
[2021-08-11 07:26] LABS: Potassium 2.3 mmol/L (3.5-5.1)
[2021-08-11] MEDS ORDERED: POTASSIUM EFFERVESENT TAB 25 MEQ PO ONE (07:45)
[2021-08-11 08:00] VITALS: BP 141/99
[2021-08-11] MEDS ORDERED: POTASSIUM CHL 20 Meq TABLET PO ONE (08:30)
[2021-08-11 09:00] VITALS: BP 141/99
[2021-08-11] MEDS: PANTOPRAZOLE 40 MG/10 ML VIAL INJ IV SCH (09:12)
[2021-08-11] MEDS: HCTZ 25 MG TAB PO SCH (09:33)
[2021-08-11] MEDS: amLODIPine BESYLATE 5 MG TAB PO SCH (09:34)
[2021-08-11] MEDS: LISINOPRIL 10 MG TAB PO SCH (09:35)
[2021-08-11 13:00] VITALS: BP 130/95
[2021-08-11] MEDS ORDERED: LORazepam 2MG/ML-1ML VIAL IV PRN (14:15)
[2021-08-11] MEDS ORDERED: POTASSIUM PHOSPHATE 44 MEQ in D5W 5% 250 ML IV ONE (14:30)
[2021-08-11] MEDS: MAGNESIUM SULFATE 1GM/100ML 100 ML IV SCH ×3 (16:00→17:00)
[2021-08-11] MEDS: FOLIC ACID 1 MG TAB PO SCH (16:14)
[2021-08-11 17:00] VITALS: BP 123/77
[2021-08-11] MEDS: GABAPENTIN 300 MG CAP PO SCH (21:20)
[2021-08-11 22:00] VITALS: BP 124/86
[2021-08-12] MEDS: MAGNESIUM SULFATE 1GM/100ML 100 ML IV SCH ×2 (00:17→01:49)
[2021-08-12] MEDS: SODIUM CHLORIDE 0.9% 1,000 ML IV SCH ×3 (01:54→18:16)
[2021-08-12 05:00] VITALS: BP 128/95
[2021-08-12] MEDS: GABAPENTIN 300 MG CAP PO SCH ×4 (05:46→21:44)
[2021-08-12 09:00] VITALS: BP 135/93
[2021-08-12] MEDS: PANTOPRAZOLE 40 MG/10 ML VIAL INJ IV SCH (09:50)
[2021-08-12] MEDS: FOLIC ACID 1 MG TAB PO SCH (09:50)
[2021-08-12] MEDS: LISINOPRIL 10 MG TAB PO SCH (09:52)
[2021-08-12] MEDS: amLODIPine BESYLATE 5 MG TAB PO SCH (09:52)
[2021-08-12] MEDS: HCTZ 25 MG TAB PO SCH (09:52)
[2021-08-12 11:38] LABS: Basophils # (auto) 0 10 ^3/uL (0-0.2); Basophils % (auto) 0.5 % (0.0-2.0); Eosinophils # (auto) 0.1 10 ^3/uL (0-0.8); Hematocrit 31.1 % (36.0-46.0); Hemoglobin 10.3 g/dL (12.2-16.2); Lymphocytes # (auto) 0.8 10 ^3/uL (0.4-5.4); Lymphocytes % (auto) 11.8 % (10.0-50.0); Mean Corpuscular Hemoglobin 27.1 pg (28.0-32.0); Mean Corpuscular Hgb Conc. 33.1 g/dL (32.0-36.0); Monocytes # (auto) 0.8 10 ^3/uL (0-1.3); Monocytes % (auto) 11.3 % (0.0-12.0); Neutrophils % (auto) 75.4 % (37.0-80.0); Red Cell Distribution Width 24.5 % (11.8-14.3); White Blood Cell 6.7 10^3/uL (4.4-10.8)
[2021-08-12 11:59] LABS: BUN/Creatinine Ratio 2.3; Calcium 7.8 mg/dL (8.5-10.1); Magnesium 2.4 mg/dL (1.6-2.6)
[2021-08-12 12:09] LABS: Potassium 2.5 mmol/L (3.5-5.1)
[2021-08-12 12:55] VITALS: BP 122/87
[2021-08-12] MEDS ORDERED: POTASSIUM CHL 20MEQ/100ML 100 ML IV ONE (15:00)
[2021-08-12] MEDS ORDERED: POTASSIUM CHL 20 Meq TABLET PO ONE (15:01)
[2021-08-12] MEDS ORDERED: POTASSIUM CHL 20 Meq TABLET PO SCH (17:00)
[2021-08-12] MEDS ORDERED: LORazepam 2MG/ML-1ML VIAL IV PRN (17:00)
[2021-08-12 17:18] VITALS: BP 122/89
[2021-08-12 22:00] VITALS: BP 125/82
[2021-08-13] MEDS: SODIUM CHLORIDE 0.9% 1,000 ML IV SCH ×3 (02:00→21:30)
[2021-08-13 05:00] VITALS: BP 132/89
[2021-08-13 09:02] VITALS: BP 137/98
[2021-08-13] MEDS: LISINOPRIL 10 MG TAB PO SCH (10:33)
[2021-08-13] MEDS: amLODIPine BESYLATE 5 MG TAB PO SCH (10:34)
[2021-08-13] MEDS: GABAPENTIN 300 MG CAP PO SCH ×2 (10:34→21:48)
[2021-08-13] MEDS: HCTZ 25 MG TAB PO SCH (10:34)
[2021-08-13] MEDS: PANTOPRAZOLE 40 MG/10 ML VIAL INJ IV SCH (10:35)
[2021-08-13] MEDS: THIAMINE 100mg/ml INJ (200mg/2ml VIAL) IV SCH (10:35)
[2021-08-13] MEDS: FOLIC ACID 1 MG in D5W 5% 50 ML INJ SCH (10:38)
[2021-08-13 13:00] VITALS: BP 131/69
[2021-08-13] MEDS ORDERED: POTASSIUM CHL 20 Meq TABLET PO ONE ×2 (13:15→16:00)
[2021-08-13 22:00] VITALS: BP 144/95
[2021-08-14 05:00] VITALS: BP 136/97
[2021-08-14] MEDS: SODIUM CHLORIDE 0.9% 1,000 ML IV SCH (06:45)
[2021-08-14 09:00] VITALS: BP 146/98
[2021-08-14] MEDS ORDERED: POTASSIUM CHL 20 Meq TABLET PO SCH (10:00)
[2021-08-14] MEDS: HCTZ 25 MG TAB PO SCH ×2 (10:00→10:31)
[2021-08-14] MEDS: PANTOPRAZOLE 40 MG/10 ML VIAL INJ IV SCH (10:26)
[2021-08-14] MEDS: GABAPENTIN 300 MG CAP PO SCH (10:27)
[2021-08-14] MEDS: amLODIPine BESYLATE 5 MG TAB PO SCH (10:29)
[2021-08-14] MEDS: LISINOPRIL 10 MG TAB PO SCH (10:30)
[2021-08-14] MEDS: THIAMINE 100mg/ml INJ (200mg/2ml VIAL) IV SCH (10:34)
[2021-08-14] MEDS: FOLIC ACID 1 MG in D5W 5% 50 ML INJ SCH (10:37)
[2021-08-14 12:30] VITALS: BP 139/100
[2021-08-14] MEDS ORDERED: ONDA-144 PO (16:51)
[2021-08-14] MEDS ORDERED: LEVE100020 PO (16:51)
[2021-08-14 17:00] VITALS: BP 137/98
[2021-08-14 17:33] VITALS: BP 139/100
== END 2021-08-14 16:30 | disposition home or self-care (01) | DRG 53 ==
LOC: EDBD 01:13 → EDUNIT# 01:13 → ER 01:13 → TELE 07:56 → TELE-CENTR 20:18
PROVIDERS: ADMIT Nurse Practitioner; ATTEND Nurse Practitioner
DX: G40.909 Epilepsy, unspecified, not intractable, without status epilepticus (principal); K56.7 Ileus, unspecified; D50.9 Iron deficiency anemia, unspecified; E87.6 Hypokalemia; F10.129 Alcohol abuse with intoxication, unspecified; F10.139 Alcohol abuse with withdrawal, unspecified; F41.9 Anxiety disorder, unspecified; Y90.9 Presence of alcohol in blood, level not specified; Z20.822 Contact with and (suspected) exposure to COVID-19; G25.81 Restless legs syndrome; I10 Essential (primary) hypertension; G62.9 Polyneuropathy, unspecified; Z91.19 Patient's noncompliance with other medical treatment and regimen; Z80.3 Family history of malignant neoplasm of breast; Z83.3 Family history of diabetes mellitus
CPT/HCPCS: 36415; 74177; 80048; 80053; 80164; 81001; 82542; 83735; 84100; 84132; 84702; 85025; 93005; 95819; 96365; 96367; 96372; 96375; 99291; C9113; G0378; J2405; J3480; J7060

== ENCOUNTER 2022-07-14 12:55 | Inpatient (IN) | payer MEDICAID ==
[~2022-07-14] VITALS: Ht 185.4 cm; Wt 77.0 kg
[2022-07-14 00:27] VITALS: BP 120/78
[~2022-07-14 12:55] MED LIST changes: +FURO1TAB33 PO; -GABA300C10 PO; -HYDR12.56 PO; -HYDR25TA5 PO; +LEVE100020 PO; -LEVE500T32 PO; -LOPE2CAP PO; +ONDA-144 PO; +SPIR25TA PO
[2022-07-14] MEDS ORDERED: LORazepam 2MG/ML-1ML VIAL ONE (13:09)
[2022-07-14] MEDS ORDERED: SODIUM CHLORIDE 0.9% 500 ML IV ONE (13:30)
[2022-07-14 14:12] LABS: Basophils # (auto) 0.1 10 ^3/uL (0-0.2); Basophils % (auto) 1.9 % (0.0-2.0); Eosinophils # (auto) 0 10 ^3/uL (0-0.8); Eosinophils % (auto) 0.7 % (0.0-7.0); Hematocrit 38.5 % (36.0-46.0); Hemoglobin 12.1 g/dL (12.2-16.2); Lymphocytes # (auto) 1.8 10 ^3/uL (0.4-5.4); Lymphocytes % (auto) 45.6 % (10.0-50.0); Mean Corpuscular Hemoglobin 27.1 pg (28.0-32.0); Mean Corpuscular Hgb Conc. 31.4 g/dL (32.0-36.0); Mean Corpuscular Volume 86.4 fL (80.0-100.0); Monocytes # (auto) 0.4 10 ^3/uL (0-1.3); Monocytes % (auto) 9.7 % (0.0-12.0); Neutrophils # (auto) 1.6 10 ^3/uL (1.6-8.6); Neutrophils % (auto) 42.1 % (37.0-80.0); Nucleated Red Blood Cells % 0.3 %; Red Blood Cells 4.45 10^6/uL (4.0-5.20); Red Cell Distribution Width 15.3 % (11.8-14.3); White Blood Cell 3.9 10^3/uL (4.4-10.8)
[2022-07-14 15:03] LABS: Lactic Acid w/Reflex 3.9 mmol/L (0.4-2.0)
[2022-07-14 15:13] LABS: BUN/Creatinine Ratio 12.7 (10.0-20.0); Bilirubin, Total 2.3 mg/dL (0.2-1.0); Calcium 8.7 mg/dL (8.5-10.1); Magnesium 1.7 mg/dL (1.6-2.6); Total Protein 8.7 g/dL (6.4-8.2)
[2022-07-14 15:21] LABS: Potassium 2.7 mmol/L (3.5-5.1)
[2022-07-14] MEDS ORDERED: POTASSIUM CHL 20 Meq TABLET PO ONE (16:00)
[2022-07-14] MEDS ORDERED: MAGNESIUM SULFATE 1GM/100ML 100 ML IV ONE (16:00)
[2022-07-14] MEDS ORDERED: DEXTROSE (50%) 50ML SYRG IV ONE (16:15)
[2022-07-14] MEDS ORDERED: DOCUSATE SOD 100 MG CAP PO PRN (16:45)
[2022-07-14] MEDS ORDERED: LORazepam 2MG/ML-1ML VIAL IV PRN (16:45)
[2022-07-14] MEDS: SODIUM CHLORIDE 0.9% 1,000 ML IV SCH (16:45)
[2022-07-14] MEDS ORDERED: PIPERACILLIN-TAZOB 3.375GM 100 ML IV ONE (16:45)
[2022-07-14] MEDS ORDERED: SODIUM CHLORIDE 0.9% 1,000 ML IV ONE (16:45)
[2022-07-14 18:29] LABS: BUN/Creatinine Ratio 12.5 (10.0-20.0); Calcium 8.3 mg/dL (8.5-10.1); Magnesium 1.6 mg/dL (1.6-2.6); Phosphorus 3.7 mg/dL (2.5-4.90)
[2022-07-14 18:59] LABS: Blood Alcohol 338.5 mg/dL (0-5)
[2022-07-14 19:59] LABS: Urine Bacteria MANY /hpf (None Seen); Urine Blood Negative /uL (Negative); Urine Hyaline Cast FEW /lpf (0 - 2); Urine Mucus FEW (None Seen); Urine Specific Gravity 1.029 (1.001-1.035); Urine WBC 25 /hpf (0 - 5)
[2022-07-14 20:00] LABS: Lactic Acid w/Reflex 2.3 mmol/L (0.4-2.0)
[2022-07-14 20:09] LABS: Amphetamine Screen, Urine NEGATIVE (NEGATIVE); Barbiturate Scree,Urine NEGATIVE (NEGATIVE); Benzodiazephine Screen, Urine POSITIVE (NEGATIVE); Cannabinoid Screen, Urine POSITIVE (NEGATIVE)
[2022-07-14 20:17] LABS: Cocaine Screen, Urine NEGATIVE (NEGATIVE); Opiate Scree,Urine NEGATIVE (NEGATIVE); Phencyclidine Screen, Urine NEGATIVE (NEGATIVE)
[2022-07-14] MEDS ORDERED: levETIRAcetam 500 MG/5ML INJ IV ONE (22:15)
[2022-07-15] VITALS (7 sets, daily range): BP systolic 120–141; BP diastolic 75–89
[2022-07-15] MEDS: PIPERACILLIN-TAZOB 3.375GM 100 ML IV SCH ×5 (00:35→22:41)
[2022-07-15] MEDS: SODIUM CHLORIDE 0.9% 1,000 ML IV SCH ×3 (01:05→17:45)
[2022-07-15 05:52] LABS: Basophils # (auto) 0 10 ^3/uL (0-0.2); Basophils % (auto) 1.3 % (0.0-2.0); Eosinophils # (auto) 0.1 10 ^3/uL (0-0.8); Hemoglobin 11.7 g/dL (12.2-16.2); Lymphocytes # (auto) 1.4 10 ^3/uL (0.4-5.4); Lymphocytes % (auto) 43.4 % (10.0-50.0); Mean Corpuscular Hemoglobin 27.9 pg (28.0-32.0); Mean Corpuscular Hgb Conc. 32.5 g/dL (32.0-36.0); Mean Corpuscular Volume 85.8 fL (80.0-100.0); Monocytes # (auto) 0.5 10 ^3/uL (0-1.3); Monocytes % (auto) 15.6 % (0.0-12.0); Neutrophils # (auto) 1.2 10 ^3/uL (1.6-8.6); Neutrophils % (auto) 37.7 % (37.0-80.0); Nucleated Red Blood Cells % 0.3 %; Red Blood Cells 4.19 10^6/uL (4.0-5.20); Red Cell Distribution Width 15.3 % (11.8-14.3); White Blood Cell 3.1 10^3/uL (4.4-10.8)
[2022-07-15 06:07] LABS: Albumin 3.4 g/dL (3.4-5.0); Calcium 7.9 mg/dL (8.5-10.1); Potassium 3.3 mmol/L (3.5-5.1)
[2022-07-15 06:12] LABS: Bilirubin, Total 2.5 mg/dL (0.2-1.0); Total Protein 7.6 g/dL (6.4-8.2)
[2022-07-15] MEDS: ONDANSETRON HCL 4 MG/2 ML VIAL IV PRN ×4 (06:17→21:13)
[2022-07-15] MEDS: MORPHINE SULFATE INJ 2 MG/ml SYRG IV PRN ×2 (12:02→17:05)
[2022-07-15] MEDS: PANTOPRAZOLE 40 MG/10 ML VIAL INJ IV SCH (12:03)
[2022-07-15] MEDS ORDERED: LORA-205 PO (13:36)
[2022-07-15] MEDS ORDERED: OXYCODONE W/ ACETAMINOPHEN 5/325MG TABLET PO PRN (16:30)
[2022-07-15] MEDS: GABAPENTIN 300 MG CAP PO SCH (21:13)
[2022-07-16] MEDS: SODIUM CHLORIDE 0.9% 1,000 ML IV SCH ×3 (02:05→17:41)
[2022-07-16] MEDS: PIPERACILLIN-TAZOB 3.375GM 100 ML IV SCH ×4 (04:43→21:18)
[2022-07-16 05:00] VITALS: BP 135/65
[2022-07-16] MEDS: GABAPENTIN 300 MG CAP PO SCH ×3 (05:21→21:18)
[2022-07-16] MEDS: ONDANSETRON HCL 4 MG/2 ML VIAL IV PRN ×3 (08:29→17:22)
[2022-07-16] MEDS: PANTOPRAZOLE 40 MG/10 ML VIAL INJ IV SCH (08:29)
[2022-07-16] MEDS: MORPHINE SULFATE INJ 2 MG/ml SYRG IV PRN ×2 (08:30→17:24)
[2022-07-16 09:00] VITALS: BP 151/89
[2022-07-16 13:00] VITALS: BP 138/91
[2022-07-16 17:19] VITALS: BP 138/91
[2022-07-16] MEDS ORDERED: LORazepam 0.5 MG TAB PO PRN (21:30)
[2022-07-16 22:00] VITALS: BP 123/79
[2022-07-16] MEDS: GABAPENTIN 400 MG CAP PO SCH (22:00)
[2022-07-17] MEDS: SODIUM CHLORIDE 0.9% 1,000 ML IV SCH ×3 (03:05→19:45)
[2022-07-17 05:00] VITALS: BP 107/63
[2022-07-17] MEDS: PIPERACILLIN-TAZOB 3.375GM 100 ML IV SCH ×2 (05:00→11:00)
[2022-07-17] MEDS: GABAPENTIN 400 MG CAP PO SCH ×3 (05:48→21:24)
[2022-07-17 09:00] VITALS: BP 116/67
[2022-07-17] MEDS: PANTOPRAZOLE 40 MG/10 ML VIAL INJ IV SCH (10:17)
[2022-07-17 13:00] VITALS: BP 117/66
[2022-07-17] MEDS: MORPHINE SULFATE INJ 2 MG/ml SYRG IV PRN ×3 (14:57→23:02)
[2022-07-17 17:00] VITALS: BP 125/84
[2022-07-17] MEDS: cefTRIAXone 1GM/50ML D5W 50 ML IV SCH (17:30)
[2022-07-17 22:00] VITALS: BP 108/68
[2022-07-18] MEDS: SODIUM CHLORIDE 0.9% 1,000 ML IV SCH ×2 (04:05→14:27)
[2022-07-18 05:10] VITALS: BP 104/62
[2022-07-18] MEDS: GABAPENTIN 400 MG CAP PO SCH ×2 (06:00→14:27)
[2022-07-18] MEDS: ONDANSETRON HCL 4 MG/2 ML VIAL IV PRN ×2 (08:06→14:39)
[2022-07-18 09:00] VITALS: BP 125/79
[2022-07-18] MEDS ORDERED: SERTRALINE HCL 50 MG TAB PO SCH (10:00)
[2022-07-18 13:00] VITALS: BP 105/56
[2022-07-18] MEDS: MORPHINE SULFATE INJ 2 MG/ml SYRG IV PRN (14:41)
[2022-07-18 16:38] VITALS: BP 123/80
[2022-07-18] MEDS ORDERED: CEFD300C2 PO (17:14)
[2022-07-18] MEDS ORDERED: SERT50TA PO (17:14)
[2022-07-18] MEDS: cefTRIAXone 1GM/50ML D5W 50 ML IV SCH (18:07)
== END 2022-07-18 19:27 | disposition home or self-care (01) | DRG 53 ==
LOC: ER 12:55 → EDBD 12:55 → TELE 16:50 → TELE-WESTW 23:33
PROVIDERS: ADMIT Nurse Practitioner Family; ATTEND Internal Medicine
DX: G40.802 Other epilepsy, not intractable, without status epilepticus (principal); G93.41 Metabolic encephalopathy; E83.39 Other disorders of phosphorus metabolism; D50.9 Iron deficiency anemia, unspecified; E16.2 Hypoglycemia, unspecified; F10.229 Alcohol dependence with intoxication, unspecified; K74.60 Unspecified cirrhosis of liver; E83.42 Hypomagnesemia; Z20.822 Contact with and (suspected) exposure to COVID-19; E87.6 Hypokalemia; N39.0 Urinary tract infection, site not specified; F12.10 Cannabis abuse, uncomplicated; F13.239 Sedative, hypnotic or anxiolytic dependence with withdrawal, unspecified; G25.81 Restless legs syndrome; G62.9 Polyneuropathy, unspecified; Y90.8 Blood alcohol level of 240 mg/100 ml or more; F32.A Depression, unspecified; F10.239 Alcohol dependence with withdrawal, unspecified; F41.1 Generalized anxiety disorder; Z63.5 Disruption of family by separation and divorce; Z79.899 Other long term (current) drug therapy; Z91.199 Patient's noncompliance with other medical treatment and regimen due to unspecified reason; Z80.3 Family history of malignant neoplasm of breast; Z83.3 Family history of diabetes mellitus; Z83.2 Family history of diseases of the blood and blood-forming organs and certain disorders involving the immune mechanism; Z82.49 Family history of ischemic heart disease and other diseases of the circulatory system
CPT/HCPCS: 36415; 70450; 71045; 72125; 80048; 80053; 80307; 80320; 81001; 82140; 82962; 83605; 83735; 84100; 84484; 84702; 85025; 87086; 87426; 93005; C9113; G0378; J0696; J2405; J2543; J7060

== ENCOUNTER 2022-08-01 10:11 | Emergency (ER) | payer MEDICAID ==
[~2022-08-01] VITALS: Ht 185.4 cm; Wt 104.5 kg
[~2022-08-01 10:11] MED LIST changes: +CEFD300C2 PO; +LORA-205 PO; +SERT50TA PO
[2022-08-01 10:15] VITALS: BP 136/78
[2022-08-01 10:50] LABS: Basophils # (auto) 0.2 10 ^3/uL (0-0.2); Basophils % (auto) 3.2 % (0.0-2.0); Eosinophils # (auto) 0.1 10 ^3/uL (0-0.8); Eosinophils % (auto) 1.3 % (0.0-7.0); Hematocrit 35.9 % (36.0-46.0); Hemoglobin 11.6 g/dL (12.2-16.2); Lymphocytes # (auto) 1.8 10 ^3/uL (0.4-5.4); Mean Corpuscular Hemoglobin 27.2 pg (28.0-32.0); Mean Corpuscular Hgb Conc. 32.4 g/dL (32.0-36.0); Mean Corpuscular Volume 84.1 fL (80.0-100.0); Monocytes # (auto) 0.6 10 ^3/uL (0-1.3); Neutrophils # (auto) 3.7 10 ^3/uL (1.6-8.6); Neutrophils % (auto) 57.5 % (37.0-80.0); Nucleated Red Blood Cells % 0.2 %; Red Blood Cells 4.27 10^6/uL (4.0-5.20); Red Cell Distribution Width 16.3 % (11.8-14.3); White Blood Cell 6.3 10^3/uL (4.4-10.8)
[2022-08-01 11:06] LABS: Albumin 4.1 g/dL (3.4-5.0); Calcium 8.6 mg/dL (8.5-10.1)
[2022-08-01 11:10] LABS: Bilirubin, Total 2.2 mg/dL (0.2-1.0); Total Protein 8.8 g/dL (6.4-8.2)
[2022-08-01 11:14] LABS: Potassium 2.9 mmol/L (3.5-5.1)
[2022-08-01] MEDS ORDERED: THIAMINE 100mg/ml INJ (200mg/2ml VIAL) IV ONE (11:30)
[2022-08-01] MEDS ORDERED: LACTATED RINGER'S 1,000 ML IV ONE (11:30)
== END 2022-08-01 12:32 | disposition left against medical advice (07) ==
LOC: ER 10:11 → EDBD 10:11 → ER 12:28
DX: F10.129 Alcohol abuse with intoxication, unspecified (principal); M79.605 Pain in left leg; M79.604 Pain in right leg; R10.2 Pelvic and perineal pain; I10 Essential (primary) hypertension; Y90.8 Blood alcohol level of 240 mg/100 ml or more
CPT/HCPCS: 36415; 80053; 80320; 82140; 83735; 84702; 85025

== ENCOUNTER 2022-09-12 16:59 | Emergency (ER) | payer MEDICAID ==
[~2022-09-12] VITALS: Ht 172.7 cm; Wt 75.0 kg
[~2022-09-12 16:59] MED LIST changes: -LISI-716 PO; +LISI10TA34 PO
[2022-09-12] MEDS ORDERED: LORazepam 2MG/ML-1ML VIAL ONE (17:47)
[2022-09-12 19:11] LABS: Alanine Aminotransferase 44 U/L (13-56); Albumin 3.4 g/dL (3.4-5.0); Anion Gap 16 (5-15); Aspartate Aminotransferase 154 U/L (15-37); BUN/Creatinine Ratio 11.4 (10.0-20.0); Blood Urea Nitrogen 5 mg/dL (7-18); Calcium 7.9 mg/dL (8.5-10.1); Carbon Dioxide 23 mmol/L (21-32); Chloride 107 mmol/L (98-107); GFR African American 200 mL/min; GFR Non-African American 165 mL/min; Glucose 76 mg/dL (74-106); Potassium 3.4 mmol/L (3.5-5.1); Sodium 146 mmol/L (136-145)
[2022-09-12 19:14] LABS: Alkaline Phosphatase 201 U/L (45-117); Bilirubin, Total 1.7 mg/dL (0.2-1.0); Total Protein 8.1 g/dL (6.4-8.2)
[2022-09-12 19:50] LABS: Blood Alcohol 375.9 mg/dL (<10)
[2022-09-12 20:38] LABS: Basophils # (auto) 0 10 ^3/uL (0-0.2); Basophils % (auto) 0.5 % (0.0-2.0); Eosinophils # (auto) 0.1 10 ^3/uL (0-0.8); Eosinophils % (auto) 1.7 % (0.0-7.0); Hematocrit 36.1 % (36.0-46.0); Hemoglobin 11.9 g/dL (12.2-16.2); Lymphocytes # (auto) 3.8 10 ^3/uL (0.4-5.4); Lymphocytes % (auto) 43.9 % (10.0-50.0); Mean Corpuscular Volume 84.9 fL (80.0-100.0); Monocytes # (auto) 0.6 10 ^3/uL (0-1.3); Monocytes % (auto) 6.6 % (0.0-12.0); Neutrophils # (auto) 4.1 10 ^3/uL (1.6-8.6); Neutrophils % (auto) 47.3 % (37.0-80.0); Nucleated Red Blood Cells % 0.2 %; Red Blood Cells 4.25 10^6/uL (4.0-5.20); Red Cell Distribution Width 20.2 % (11.8-14.3); White Blood Cell 8.6 10^3/uL (4.4-10.8)
[2022-09-13 05:00] VITALS: BP 117/62
== END 2022-09-13 06:41 | disposition home or self-care (01) ==
LOC: ER 16:59 → EDUNIT# 16:59 → EDBD 16:59 → ER 09-13 06:41
DX: G40.909 Epilepsy, unspecified, not intractable, without status epilepticus (principal); F10.129 Alcohol abuse with intoxication, unspecified; R41.82 Altered mental status, unspecified; I10 Essential (primary) hypertension; Y90.8 Blood alcohol level of 240 mg/100 ml or more
CPT/HCPCS: 36415; 70450; 80053; 80320; 96365; 99285; J1953; J2060; J7060

== ENCOUNTER 2023-02-17 07:19 | Inpatient (IN) | payer MEDICAID ==
[~2023-02-17] VITALS: Ht 182.9 cm; Wt 71.7 kg
[2023-02-17] MEDS ORDERED: MORPHINE SULFATE 4 MG/ML SYR/VIAL IV ONE (08:00)
[2023-02-17] MEDS ORDERED: ONDANSETRON HCL 4 MG/2 ML VIAL IV ONE (08:00)
[2023-02-17 08:21] LABS: Basophils # (auto) 0.1 10 ^3/uL (0-0.2); Basophils % (auto) 1.5 % (0.0-2.0); Eosinophils # (auto) 0 10 ^3/uL (0-0.8); Eosinophils % (auto) 0.5 % (0.0-7.0); Hematocrit 39.5 % (36.0-46.0); Hemoglobin 12.7 g/dL (12.2-16.2); Lymphocytes # (auto) 2.7 10 ^3/uL (0.4-5.4); Mean Corpuscular Hemoglobin 28.4 pg (28.0-32.0); Mean Corpuscular Hgb Conc. 32.2 g/dL (32.0-36.0); Mean Corpuscular Volume 88.3 fL (80.0-100.0); Monocytes # (auto) 0.5 10 ^3/uL (0-1.3); Monocytes % (auto) 5.8 % (0.0-12.0); Neutrophils # (auto) 5.7 10 ^3/uL (1.6-8.6); Neutrophils % (auto) 62.2 % (37.0-80.0); Nucleated Red Blood Cells % 0.2 %; Red Blood Cells 4.48 10^6/uL (4.0-5.20); Red Cell Distribution Width 14.1 % (11.8-14.3); White Blood Cell 9.2 10^3/uL (4.4-10.8)
[2023-02-17 08:37] LABS: Alanine Aminotransferase 30 U/L (7-40); Alkaline Phosphatase 128 U/L (46-116); Anion Gap 23 (5-15); Blood Urea Nitrogen 6 mg/dL (9-23); Calcium 9.3 mg/dL (8.5-10.1); Carbon Dioxide 19 mmol/L (20-30); Chloride 103 mmol/L (98-107); Glucose 66 mg/dL (74-106); Potassium 3.4 mmol/L (3.5-5.1); Sodium 145 mmol/L (136-145)
[2023-02-17 08:38] LABS: Albumin 4.7 g/dL (3.2-4.8); Aspartate Aminotransferase 129 U/L (13-40); BUN/Creatinine Ratio 9.2 (10.0-20.0); Bilirubin, Total 2.1 mg/dL (0.2-1.0); Total Protein 9.1 g/dL (5.7-8.2)
[2023-02-17 09:09] LABS: Lipase 29 U/L (12-53)
[2023-02-17 10:32] LABS: COVID19 ANTIGEN SOFIA FIA NEGATIVE (NEGATIVE)
[2023-02-17 11:14] LABS: Urine Bacteria FEW /hpf (None Seen); Urine Blood Negative /uL (Negative); Urine Clarity HAZY (Clear); Urine Color Yellow (Yellow); Urine Mucus FEW (None Seen); Urine Protein, UAD 1+ (Negative); Urine Specific Gravity 1.024 (1.001-1.035); Urine Urobilinogen Normal (Negative); Urine WBC 2 /hpf (0 - 5); Urine pH 5.5 (5.0-8.0)
[2023-02-17 12:33] LABS: Amphetamine Screen, Urine Neg (NEGATIVE); Barbiturate Scree,Urine Neg (NEGATIVE); Benzodiazephine Screen, Urine Neg (NEGATIVE); Cocaine Screen, Urine Neg (NEGATIVE); Opiate Scree,Urine Neg (NEGATIVE)
[2023-02-17 12:34] LABS: Cannabinoid Screen, Urine Pos (NEGATIVE); Phencyclidine Screen, Urine Neg (NEGATIVE)
[2023-02-17] MEDS ORDERED: PANTOPRAZOLE 40 MG/10 ML VIAL INJ IV ONE (12:45)
[2023-02-17] MEDS ORDERED: POTASSIUM EFFERVESENT TAB 25 MEQ PO ONE (12:45)
[2023-02-17 13:35] LABS: Magnesium 1.8 mg/dL (1.6-2.6)
[2023-02-17] MEDS ORDERED: GABAPENTIN 1000 MG PO SCH (14:00)
[2023-02-17] MEDS: GABAPENTIN 300 MG CAP PO SCH ×2 (14:00→22:29)
[2023-02-17] MEDS ORDERED: METOCLOPRAMIDE HCL 5MG/ml INJ 2ml VIAL IV PRN (16:30)
[2023-02-17 16:35] VITALS: PULSE 80; RESP 18; O2SAT 96
[2023-02-17] MEDS: ONDANSETRON HCL 4 MG/2 ML VIAL IV PRN (16:42)
[2023-02-17] MEDS: SODIUM CHLORIDE 0.9% 1,000 ML IV SCH ×2 (16:45→22:39)
[2023-02-17 19:05] VITALS: PULSE 111; O2SAT 100
[2023-02-17] MEDS ORDERED: LEVETIRACETAM 1000 MG PO SCH (22:00)
[2023-02-17] MEDS: levETIRAcetam 500 MG TAB PO SCH (22:29)
[2023-02-18] MEDS: GABAPENTIN 300 MG CAP PO SCH ×3 (06:24→21:55)
[2023-02-18] MEDS ORDERED: PATIENTS OWN MEDICATION (Cholecalciferol (Vitamin D3) 5,000 UNIT) PO SCH (08:00)
[2023-02-18 08:38] VITALS: BP 134/86; PULSE 104; RESP 21; TEMP 99.4; O2SAT 96
[2023-02-18] MEDS: PANTOPRAZOLE 40 MG/10 ML VIAL INJ IV SCH (09:12)
[2023-02-18] MEDS: SODIUM CHLORIDE 0.9% 1,000 ML IV SCH ×2 (09:12→18:02)
[2023-02-18] MEDS: levETIRAcetam 500 MG TAB PO SCH ×2 (09:13→21:54)
[2023-02-18] MEDS: LISINOPRIL 10 MG TAB PO SCH (09:13)
[2023-02-18] MEDS: SPIRONOLACTONE 25 MG TAB PO SCH (09:13)
[2023-02-18] MEDS: CHOLECALCIFEROL (VITD3) 2,000 UNIT CAP/TAB PO SCH (09:13)
[2023-02-18] MEDS: SERTRALINE HCL 50 MG TAB PO SCH (09:14)
[2023-02-18] MEDS ORDERED: amLODIPine BESYLATE 5 MG TAB PO SCH (10:00)
[2023-02-18] MEDS ORDERED: ENOXAPARIN SOD 40 MG/0.4 ML SYRINGE SC SCH (10:00)
[2023-02-18 10:01] LABS: Basophils # (auto) 0.1 10 ^3/uL (0-0.2); Eosinophils # (auto) 0 10 ^3/uL (0-0.8); Eosinophils % (auto) 0.2 % (0.0-7.0); Hematocrit 33.1 % (36.0-46.0); Hemoglobin 10.6 g/dL (12.2-16.2); Lymphocytes # (auto) 2.3 10 ^3/uL (0.4-5.4); Lymphocytes % (auto) 29.2 % (10.0-50.0); Mean Corpuscular Hemoglobin 28.2 pg (28.0-32.0); Monocytes # (auto) 0.8 10 ^3/uL (0-1.3); Monocytes % (auto) 10.8 % (0.0-12.0); Neutrophils # (auto) 4.5 10 ^3/uL (1.6-8.6); Neutrophils % (auto) 58.8 % (37.0-80.0); Nucleated Red Blood Cells % 0.2 %; Red Blood Cells 3.76 10^6/uL (4.0-5.20); White Blood Cell 7.7 10^3/uL (4.4-10.8)
[2023-02-18 10:12] LABS: Alanine Aminotransferase 34 U/L (7-40); Albumin 3.9 g/dL (3.2-4.8); Alkaline Phosphatase 96 U/L (46-116); Anion Gap 15 (5-15); Aspartate Aminotransferase 134 U/L (13-40); BUN/Creatinine Ratio 7.6 (10.0-20.0); Bilirubin, Total 3.1 mg/dL (0.2-1.0); Blood Urea Nitrogen 5 mg/dL (9-23); Calcium 8.3 mg/dL (8.5-10.1); Carbon Dioxide 21 mmol/L (20-30); Chloride 101 mmol/L (98-107); Glucose 91 mg/dL (74-106); Potassium 3.1 mmol/L (3.5-5.1); Sodium 137 mmol/L (136-145); Total Protein 7.4 g/dL (5.7-8.2)
[2023-02-18] MEDS ORDERED: POTASSIUM CHLORIDE 40 MEQ, LIDOCAINE 1% (LOCAL ANESTH.) 4 ML in SODIUM CHL 0.9% 250 ML IV ONE (10:45)
[2023-02-18 12:53] VITALS: BP 130/66; PULSE 108; RESP 20; TEMP 99.1; O2SAT 98
[2023-02-18] MEDS: HYDROcodone-ACET 5/325MG TAB PO PRN (18:00)
[2023-02-18 22:00] VITALS: BP 141/93; PULSE 92; RESP 19; TEMP 99; O2SAT 100
[2023-02-18] MEDS: MORPHINE SULFATE INJ 2 MG/ml SYRG IV PRN (22:35)
[2023-02-19] MEDS: SODIUM CHLORIDE 0.9% 1,000 ML IV SCH ×2 (04:39→11:01)
[2023-02-19 04:57] LABS: Alanine Aminotransferase 37 U/L (7-40); Albumin 3.6 g/dL (3.2-4.8); Alkaline Phosphatase 92 U/L (46-116); Anion Gap 7 (5-15); Aspartate Aminotransferase 142 U/L (13-40); Basophils # (auto) 0.1 10 ^3/uL (0-0.2); Basophils % (auto) 1.3 % (0.0-2.0); Calcium 7.8 mg/dL (8.7-10.4); Carbon Dioxide 28 mmol/L (20-30); Chloride 103 mmol/L (98-107); Eosinophils # (auto) 0.1 10 ^3/uL (0-0.8); Eosinophils % (auto) 3.5 % (0.0-7.0); Glucose 95 mg/dL (74-106); Hematocrit 35.9 % (36.0-46.0); Hemoglobin 11.8 g/dL (12.2-16.2); Lymphocytes # (auto) 1.7 10 ^3/uL (0.4-5.4); Lymphocytes % (auto) 42.9 % (10.0-50.0); Mean Corpuscular Hemoglobin 28.6 pg (28.0-32.0); Mean Corpuscular Hgb Conc. 32.8 g/dL (32.0-36.0); Mean Corpuscular Volume 87.2 fL (80.0-100.0); Monocytes # (auto) 0.3 10 ^3/uL (0-1.3); Monocytes % (auto) 8.5 % (0.0-12.0); Neutrophils # (auto) 1.8 10 ^3/uL (1.6-8.6); Neutrophils % (auto) 43.8 % (37.0-80.0); Nucleated Red Blood Cells % 0.4 %; Potassium 2.8 mmol/L (3.5-5.1); Red Blood Cells 4.12 10^6/uL (4.0-5.20); Red Cell Distribution Width 13.6 % (11.8-14.3); Sodium 138 mmol/L (136-145); White Blood Cell 4.1 10^3/uL (4.4-10.8)
[2023-02-19 04:58] LABS: Bilirubin, Total 4.2 mg/dL (0.2-1.0); Total Protein 7.2 g/dL (5.7-8.2)
[2023-02-19 05:00] VITALS: BP 141/73; PULSE 82; RESP 20; TEMP 98; O2SAT 97
[2023-02-19 05:10] LABS: INR 1.69 (0.9-1.15); Partial Thromboplastin Time 32.7 SEC (24.5-34.5); Prothrombin Time 17.1 sec (9.3-11.8)
[2023-02-19 05:12] LABS: BUN/Creatinine Ratio 7.6 (10.0-20.0); Blood Urea Nitrogen < 5 mg/dL (9-23)
[2023-02-19] MEDS: GABAPENTIN 300 MG CAP PO SCH ×3 (05:24→21:31)
[2023-02-19] MEDS ORDERED: POTASSIUM CHL 20 Meq TABLET PO ONE ×2 (06:15→09:45)
[2023-02-19] MEDS: PANTOPRAZOLE 40 MG/10 ML VIAL INJ IV SCH (08:33)
[2023-02-19] MEDS: levETIRAcetam 500 MG TAB PO SCH ×2 (08:33→21:31)
[2023-02-19] MEDS: CHOLECALCIFEROL (VITD3) 2,000 UNIT CAP/TAB PO SCH (08:33)
[2023-02-19] MEDS: SERTRALINE HCL 50 MG TAB PO SCH (08:34)
[2023-02-19] MEDS: SPIRONOLACTONE 25 MG TAB PO SCH (08:34)
[2023-02-19] MEDS: LISINOPRIL 10 MG TAB PO SCH (08:34)
[2023-02-19 08:45] VITALS: BP 119/76; PULSE 73; RESP 20; TEMP 98; O2SAT 98
[2023-02-19] MEDS ORDERED: MIDAZOLAM HCL 5 MG/ML-1ML VIAL ONE (08:47)
[2023-02-19] MEDS ORDERED: LIDOCAINE VISCOUS 2% 15ML UD ONE (08:47)
[2023-02-19] MEDS ORDERED: SODIUM CHLORIDE LOCK 0 ML ONE (08:47)
[2023-02-19] MEDS ORDERED: fentaNYL CITRATE 100 MCG/2 ML VL ONE (08:48)
[2023-02-19] MEDS ORDERED: diphenhdrAMINE HCL 50 MG/1 ML VL ONE (08:48)
[2023-02-19] MEDS ORDERED: POTASSIUM CHLORIDE 40 MEQ, LIDOCAINE 1% (LOCAL ANESTH.) 4 ML in SODIUM CHL 0.9% 250 ML IV ONE (09:45)
[2023-02-19] MEDS: HYDROcodone-ACET 5/325MG TAB PO PRN (10:59)
[2023-02-19] MEDS: LACTULOSE 20Gm/30ML SOLN PO SCH ×3 (10:59→22:00)
[2023-02-19 12:31] VITALS: BP 128/80; PULSE 94; RESP 21; TEMP 97.6; O2SAT 99
[2023-02-19 17:16] VITALS: BP 131/92; PULSE 84; RESP 21; TEMP 97.9; O2SAT 98
[2023-02-19] MEDS: MORPHINE SULFATE INJ 2 MG/ml SYRG IV PRN (17:43)
[2023-02-19 22:00] VITALS: BP 146/85; PULSE 97; RESP 18; TEMP 98.8; O2SAT 95
[2023-02-20] VITALS (7 sets, daily range): BP systolic 113–136; BP diastolic 73–88; PULSE 78–99; RESP 16–18; TEMP 98.3–99.8; O2SAT 0–100
[2023-02-20] MEDS: SODIUM CHLORIDE 0.9% 1,000 ML IV SCH ×2 (01:46→12:25)
[2023-02-20] MEDS: GABAPENTIN 300 MG CAP PO SCH ×3 (05:36→21:19)
[2023-02-20 07:27] LABS: Alanine Aminotransferase 40 U/L (7-40); Alkaline Phosphatase 95 U/L (46-116); Anion Gap 7 (5-15); Calcium 8.3 mg/dL (8.7-10.4); Carbon Dioxide 29 mmol/L (20-30); Chloride 101 mmol/L (98-107); Glucose 104 mg/dL (74-106); Magnesium 1.3 mg/dL (1.6-2.6); Potassium 3.2 mmol/L (3.5-5.1); Sodium 137 mmol/L (136-145)
[2023-02-20 07:28] LABS: Albumin 3.8 g/dL (3.2-4.8); Aspartate Aminotransferase 144 U/L (13-40); Bilirubin, Total 3.9 mg/dL (0.2-1.0); Total Protein 7.3 g/dL (5.7-8.2)
[2023-02-20 07:33] LABS: BUN/Creatinine Ratio 8.5 (10.0-20.0); Blood Urea Nitrogen < 5 mg/dL (9-23)
[2023-02-20 07:38] LABS: Basophils # (auto) 0 10 ^3/uL (0-0.2); Basophils % (auto) 0.4 % (0.0-2.0); Eosinophils # (auto) 0.1 10 ^3/uL (0-0.8); Hematocrit 35.4 % (36.0-46.0); Hemoglobin 11.7 g/dL (12.2-16.2); Lymphocytes # (auto) 0.9 10 ^3/uL (0.4-5.4); Lymphocytes % (auto) 11.7 % (10.0-50.0); Mean Corpuscular Hemoglobin 28.5 pg (28.0-32.0); Mean Corpuscular Hgb Conc. 33.2 g/dL (32.0-36.0); Mean Corpuscular Volume 85.9 fL (80.0-100.0); Monocytes # (auto) 0.5 10 ^3/uL (0-1.3); Neutrophils # (auto) 6.4 10 ^3/uL (1.6-8.6); Neutrophils % (auto) 80.9 % (37.0-80.0); Nucleated Red Blood Cells % 0.1 %; Red Blood Cells 4.12 10^6/uL (4.0-5.20); Red Cell Distribution Width 13.8 % (11.8-14.3); White Blood Cell 7.9 10^3/uL (4.4-10.8)
[2023-02-20] MEDS: PANTOPRAZOLE 40 MG/10 ML VIAL INJ IV SCH (09:06)
[2023-02-20] MEDS: MORPHINE SULFATE INJ 2 MG/ml SYRG IV PRN (09:06)
[2023-02-20] MEDS: levETIRAcetam 500 MG TAB PO SCH ×2 (09:06→21:19)
[2023-02-20] MEDS: SPIRONOLACTONE 25 MG TAB PO SCH (09:07)
[2023-02-20] MEDS: CHOLECALCIFEROL (VITD3) 2,000 UNIT CAP/TAB PO SCH (09:07)
[2023-02-20] MEDS: LISINOPRIL 10 MG TAB PO SCH (09:07)
[2023-02-20] MEDS: SERTRALINE HCL 50 MG TAB PO SCH (09:07)
[2023-02-20] MEDS: LACTULOSE 20Gm/30ML SOLN PO SCH (10:00)
[2023-02-20] MEDS ORDERED: POTASSIUM CHL 20 Meq TABLET PO ONE (10:45)
[2023-02-20] MEDS ORDERED: levoFLOXacin 500MG 100 ML IV ONE (10:45)
[2023-02-20] MEDS: metroNIDAZOLE 500 MG TAB PO SCH ×2 (14:02→21:19)
[2023-02-20] MEDS: HYDROcodone-ACET 5/325MG TAB PO PRN (18:53)
[2023-02-21] MEDS: SODIUM CHLORIDE 0.9% 1,000 ML IV SCH ×2 (01:45→02:45)
[2023-02-21] MEDS: HYDROcodone-ACET 5/325MG TAB PO PRN (04:52)
[2023-02-21 05:05] VITALS: BP 120/84; PULSE 71; RESP 18; TEMP 98.9; O2SAT 100
[2023-02-21] MEDS: GABAPENTIN 300 MG CAP PO SCH ×2 (06:00→14:58)
[2023-02-21] MEDS: metroNIDAZOLE 500 MG TAB PO SCH ×2 (06:00→14:58)
[2023-02-21 06:09] LABS: Basophils # (auto) 0 10 ^3/uL (0-0.2); Basophils % (auto) 0.8 % (0.0-2.0); Eosinophils # (auto) 0.2 10 ^3/uL (0-0.8); Eosinophils % (auto) 5.2 % (0.0-7.0); Hemoglobin 11.2 g/dL (12.2-16.2); Lymphocytes # (auto) 1.6 10 ^3/uL (0.4-5.4); Lymphocytes % (auto) 33.3 % (10.0-50.0); Mean Corpuscular Hemoglobin 28.4 pg (28.0-32.0); Mean Corpuscular Hgb Conc. 32.9 g/dL (32.0-36.0); Mean Corpuscular Volume 86.5 fL (80.0-100.0); Monocytes # (auto) 0.4 10 ^3/uL (0-1.3); Monocytes % (auto) 8.3 % (0.0-12.0); Neutrophils # (auto) 2.5 10 ^3/uL (1.6-8.6); Neutrophils % (auto) 52.4 % (37.0-80.0); Red Blood Cells 3.93 10^6/uL (4.0-5.20); Red Cell Distribution Width 13.8 % (11.8-14.3); White Blood Cell 4.8 10^3/uL (4.4-10.8)
[2023-02-21 06:18] LABS: Chloride 104 mmol/L (98-107); Sodium 139 mmol/L (136-145)
[2023-02-21 06:19] LABS: Anion Gap 6 (5-15); Carbon Dioxide 29 mmol/L (20-30)
[2023-02-21 06:20] LABS: Calcium 8.2 mg/dL (8.7-10.4)
[2023-02-21 06:24] LABS: Glucose 92 mg/dL (74-106)
[2023-02-21 06:31] LABS: BUN/Creatinine Ratio 12.2 (10.0-20.0); Blood Urea Nitrogen < 5 mg/dL (9-23)
[2023-02-21 08:00] VITALS: PULSE 69; RESP 16; O2SAT 100
[2023-02-21] MEDS: CHOLECALCIFEROL (VITD3) 2,000 UNIT CAP/TAB PO SCH (08:36)
[2023-02-21 09:10] VITALS: BP 103/66; PULSE 69; RESP 18; TEMP 98.4; O2SAT 100
[2023-02-21] MEDS: SPIRONOLACTONE 25 MG TAB PO SCH (09:43)
[2023-02-21] MEDS: SERTRALINE HCL 50 MG TAB PO SCH (09:44)
[2023-02-21] MEDS: levETIRAcetam 500 MG TAB PO SCH (09:44)
[2023-02-21] MEDS: LISINOPRIL 10 MG TAB PO SCH (09:44)
[2023-02-21] MEDS ORDERED: PANTOPRAZOLE 40 MG TAB PO SCH (10:00)
[2023-02-21] MEDS ORDERED: levoFLOXacin 500MG 100 ML IV SCH (10:00)
[2023-02-21] MEDS ORDERED: POTASSIUM CHL 20 Meq TABLET PO ONE (10:15)
[2023-02-21] MEDS ORDERED: POTASSIUM CHLORIDE 20 MEQ, LIDOCAINE 1% (LOCAL ANESTH.) 2 ML in SODIUM CHL 0.9% 100 ML IV ONE (10:15)
[2023-02-21] MEDS ORDERED: LEVO500T91 PO (10:19)
[2023-02-21] MEDS ORDERED: MET500T PO (10:19)
[2023-02-21] MEDS ORDERED: PANT40T PO (10:23)
[2023-02-21] MEDS: ONDANSETRON HCL 4 MG/2 ML VIAL IV PRN (12:52)
[2023-02-21 13:00] VITALS: BP 139/96; PULSE 97; RESP 20; TEMP 99.1; O2SAT 99
[2023-02-21 14:05] VITALS: BP 139/96; PULSE 97; RESP 20; TEMP 99.1; O2SAT 99
[2023-02-21] MEDS ORDERED: POTASSIUM EFFERVESENT TAB 25 MEQ GT ONE (14:45)
== END 2023-02-21 15:20 | disposition home or self-care (01) | DRG 241 ==
LOC: EDBD 07:19 → ER 07:19 → OVERFLOW 12:48 → EAST 18:32
PROVIDERS: ADMIT Nurse Practitioner Family; ATTEND Internal Medicine
PROC: 05H933Z Insertion of Infusion Device into Right Brachial Vein, Percutaneous Approach (ICD-10-PCS; principal; 2023-02-17)
PROC: B54MZZA Ultrasonography of Right Upper Extremity Veins, Guidance (ICD-10-PCS; 2023-02-17)
DX: K29.71 Gastritis, unspecified, with bleeding (principal); K57.31 Diverticulosis of large intestine without perforation or abscess with bleeding; K70.9 Alcoholic liver disease, unspecified; E87.6 Hypokalemia; K76.0 Fatty (change of) liver, not elsewhere classified; I10 Essential (primary) hypertension; Z20.822 Contact with and (suspected) exposure to COVID-19; M25.561 Pain in right knee; G40.909 Epilepsy, unspecified, not intractable, without status epilepticus; F32.A Depression, unspecified; Z79.899 Other long term (current) drug therapy; Z83.2 Family history of diseases of the blood and blood-forming organs and certain disorders involving the immune mechanism; Z80.3 Family history of malignant neoplasm of breast; Z83.3 Family history of diabetes mellitus; Z82.49 Family history of ischemic heart disease and other diseases of the circulatory system
CPT/HCPCS: 36415; 73560; 74176; 76830; 76856; 80048; 80053; 80307; 81001; 83690; 83735; 84702; 85025; 85610; 85730; 87426; 96365; 96375; C9113; G0378; J1956; J2001; J2250; J2405

== ENCOUNTER 2023-05-12 01:54 | Inpatient (IN) | payer MEDICAID ==
[~2023-05-12] VITALS: Ht 185.4 cm; Wt 75.6 kg
[~2023-05-12 01:54] MED LIST changes: +LEVO500T91 PO; +MET500T PO; +PANT40T PO
[2023-05-12 02:48] LABS: Basophils # (auto) 0.1 10 ^3/uL (0-0.2); Eosinophils # (auto) 0 10 ^3/uL (0-0.8); Hematocrit 40.8 % (36.0-46.0); Hemoglobin 12.9 g/dL (12.2-16.2); Lymphocytes % (auto) 29.6 % (10.0-50.0); Mean Corpuscular Hemoglobin 27.5 pg (28.0-32.0); Mean Corpuscular Hgb Conc. 31.6 g/dL (32.0-36.0); Mean Corpuscular Volume 86.7 fL (80.0-100.0); Monocytes # (auto) 0.5 10 ^3/uL (0-1.3); Monocytes % (auto) 4.8 % (0.0-12.0); Neutrophils # (auto) 6.6 10 ^3/uL (1.6-8.6); Neutrophils % (auto) 64.6 % (37.0-80.0); Nucleated Red Blood Cells % 0.3 %; Red Blood Cells 4.71 10^6/uL (4.0-5.20); Red Cell Distribution Width 16.9 % (11.8-14.3); White Blood Cell 10.1 10^3/uL (4.4-10.8)
[2023-05-12 03:01] LABS: Alanine Aminotransferase 25 U/L (7-40); Albumin 4.5 g/dL (3.2-4.8); Alkaline Phosphatase 156 U/L (46-116); Anion Gap 23 (5-15); Aspartate Aminotransferase 98 U/L (13-40); BUN/Creatinine Ratio 10.3 (10.0-20.0); Bilirubin, Total 2.1 mg/dL (0.2-1.0); Blood Urea Nitrogen 6 mg/dL (9-23); Calcium 9.1 mg/dL (8.7-10.4); Carbon Dioxide 16 mmol/L (20-30); Chloride 109 mmol/L (98-107); Glucose 75 mg/dL (74-106); Magnesium 1.7 mg/dL (1.6-2.6); Potassium 3.4 mmol/L (3.5-5.1); Sodium 148 mmol/L (136-145); Total Protein 8.4 g/dL (5.7-8.2)
[2023-05-12 03:06] LABS: INR 1.5 (0.9-1.15); Partial Thromboplastin Time 29.2 SEC (24.5-34.5); Prothrombin Time 15.3 sec (9.3-11.8)
[2023-05-12] MEDS ORDERED: OCTREOTIDE ACETATE 500 MCG in SODIUM CHL 0.9% 99 ML IV SCH (09:00)
[2023-05-12 12:50] VITALS: PULSE 98; RESP 20; O2SAT 97
[2023-05-12] MEDS: POTASSIUM EFFERVESENT TAB 25 MEQ PO ONE (13:00)
[2023-05-12] MEDS: OCTREOTIDE ACETATE 100 MCG in SODIUM CHL 0.9% 50 ML IV ONE (13:14)
[2023-05-12] MEDS: ONDANSETRON HCL 4 MG/2 ML VIAL IV PRN (13:23)
[2023-05-12] MEDS: PANTOPRAZOLE 80 MG in SODIUM CHL 0.9% 100 ML IV ONE (13:36)
[2023-05-12] MEDS: HYDROmorphone HCL 2 MG/ML VL/or syr IV PRN (13:42)
[2023-05-12] MEDS: GABAPENTIN 1000 MG PO SCH (14:00)
[2023-05-12] MEDS: SODIUM CHLOR 0.9% PF (SALINE LOCK) 10ML VIAL/SYR IV SCH (14:06)
[2023-05-12] MEDS: POTASSIUM CHL 20MEQ/100ML 100 ML IV ONE (14:06)
[2023-05-12] MEDS: PANTOPRAZOLE 40mg/50ML NS AE 50 ML IV ONE (14:29)
[2023-05-12] MEDS: OCTREOTIDE ACETATE 500 MCG in SODIUM CHL 0.9% 99 ML IV SCH (17:09)
[2023-05-12 19:35] VITALS: PULSE 120; RESP 20; O2SAT 93
[2023-05-12] MEDS: PANTOPRAZOLE 40mg/50ML NS AE 50 ML IV SCH (20:15)
[2023-05-12] MEDS: levETIRAcetam 500 MG TAB PO SCH (21:34)
[2023-05-12] MEDS ORDERED: GABA-339 PO (22:06)
[2023-05-13] MEDS: OCTREOTIDE ACETATE 500 MCG/ML VL ONE (03:56)
[2023-05-13 07:39] VITALS: PULSE 75; RESP 16; O2SAT 97
[2023-05-13] MEDS: SERTRALINE HCL 50 MG TAB PO SCH (09:50)
[2023-05-13] MEDS: FUROSEMIDE 20 MG TAB PO SCH (09:50)
[2023-05-13] MEDS: SPIRONOLACTONE 25 MG TAB PO SCH (09:51)
[2023-05-13 11:35] LABS: Basophils # (auto) 0 10 ^3/uL (0-0.2); Basophils % (auto) 0.5 % (0.0-2.0); Eosinophils # (auto) 0 10 ^3/uL (0-0.8); Eosinophils % (auto) 0.1 % (0.0-7.0); Hemoglobin 12.5 g/dL (12.2-16.2); Lymphocytes # (auto) 2.6 10 ^3/uL (0.4-5.4); Lymphocytes % (auto) 31.9 % (10.0-50.0); Mean Corpuscular Hemoglobin 28.4 pg (28.0-32.0); Mean Corpuscular Hgb Conc. 32.8 g/dL (32.0-36.0); Mean Corpuscular Volume 86.5 fL (80.0-100.0); Monocytes # (auto) 0.8 10 ^3/uL (0-1.3); Monocytes % (auto) 10.1 % (0.0-12.0); Neutrophils # (auto) 4.6 10 ^3/uL (1.6-8.6); Neutrophils % (auto) 57.4 % (37.0-80.0); Nucleated Red Blood Cells % 0.2 %; Red Blood Cells 4.39 10^6/uL (4.0-5.20); Red Cell Distribution Width 16.9 % (11.8-14.3); White Blood Cell 8.1 10^3/uL (4.4-10.8)
[2023-05-13 11:51] LABS: Chloride 105 mmol/L (98-107); Potassium 4.1 mmol/L (3.5-5.1); Sodium 138 mmol/L (136-145)
[2023-05-13 11:52] LABS: Anion Gap 8 (5-15); Calcium 8.8 mg/dL (8.7-10.4); Carbon Dioxide 25 mmol/L (20-30)
[2023-05-13 11:57] LABS: BUN/Creatinine Ratio 8.5 (10.0-20.0); Blood Urea Nitrogen 6 mg/dL (9-23); Glucose 130 mg/dL (74-106)
[2023-05-13 11:58] LABS: Magnesium 1.7 mg/dL (1.6-2.6)
[2023-05-13] MEDS: GABAPENTIN 300 MG CAP PO SCH (13:44)
[2023-05-13 16:00] VITALS: O2SAT 100
[2023-05-13] MEDS ORDERED: RIFA550T PO (16:20)
[2023-05-13 17:00] VITALS: BP 141/89; PULSE 72; RESP 16; TEMP 98.6; O2SAT 100
[2023-05-13 20:00] VITALS: PULSE 72; PULSE 81; RESP 16; RESP 18; TEMP 37
[2023-05-13 22:00] VITALS: BP 127/81; PULSE 94; RESP 20; TEMP 98.9; O2SAT 93
[2023-05-14] VITALS (7 sets, daily range): BP systolic 128–170; BP diastolic 70–97; PULSE 68–98; RESP 16–18; TEMP 98.2–98.9; O2SAT 92–100
[2023-05-14 06:43] LABS: Basophils # (auto) 0.1 10 ^3/uL (0-0.2); Basophils % (auto) 0.8 % (0.0-2.0); Eosinophils # (auto) 0.1 10 ^3/uL (0-0.8); Eosinophils % (auto) 0.9 % (0.0-7.0); Hematocrit 40.7 % (36.0-46.0); Hemoglobin 12.3 g/dL (12.2-16.2); Lymphocytes # (auto) 2.4 10 ^3/uL (0.4-5.4); Lymphocytes % (auto) 39.2 % (10.0-50.0); Mean Corpuscular Hemoglobin 27.4 pg (28.0-32.0); Mean Corpuscular Hgb Conc. 30.3 g/dL (32.0-36.0); Mean Corpuscular Volume 90.6 fL (80.0-100.0); Monocytes # (auto) 0.7 10 ^3/uL (0-1.3); Monocytes % (auto) 10.9 % (0.0-12.0); Neutrophils % (auto) 48.2 % (37.0-80.0); Nucleated Red Blood Cells % 0.4 %; Red Blood Cells 4.49 10^6/uL (4.0-5.20); Red Cell Distribution Width 17.5 % (11.8-14.3); White Blood Cell 6.2 10^3/uL (4.4-10.8)
[2023-05-14 10:13] LABS: Alanine Aminotransferase 44 U/L (7-40); Alkaline Phosphatase 117 U/L (46-116); Anion Gap 7 (5-15); Aspartate Aminotransferase 153 U/L (13-40); BUN/Creatinine Ratio 7.7 (10.0-20.0); Bilirubin, Total 4.1 mg/dL (0.2-1.0); Blood Urea Nitrogen 5 mg/dL (9-23); Calcium 8.9 mg/dL (8.5-10.1); Carbon Dioxide 31 mmol/L (20-30); Chloride 101 mmol/L (98-107); Glucose 120 mg/dL (74-106); Potassium 3.6 mmol/L (3.5-5.1); Sodium 139 mmol/L (136-145); Total Protein 7.3 g/dL (5.7-8.2)
[2023-05-14 10:36] LABS: Magnesium 1.4 mg/dL (1.6-2.6)
[2023-05-14] MEDS: DOCUSATE SOD 100 MG CAP PO PRN (18:43)
[2023-05-15] VITALS (8 sets, daily range): BP systolic 129–152; BP diastolic 75–97; PULSE 68–91; RESP 16–18; TEMP 98.3–99.7; O2SAT 92–100
[2023-05-15 06:28] LABS: Basophils # (auto) 0 10 ^3/uL (0-0.2); Basophils % (auto) 0.6 % (0.0-2.0); Eosinophils # (auto) 0.1 10 ^3/uL (0-0.8); Eosinophils % (auto) 2.4 % (0.0-7.0); Hemoglobin 12.5 g/dL (12.2-16.2); Lymphocytes # (auto) 1.6 10 ^3/uL (0.4-5.4); Lymphocytes % (auto) 31.4 % (10.0-50.0); Mean Corpuscular Hemoglobin 27.7 pg (28.0-32.0); Mean Corpuscular Volume 86.4 fL (80.0-100.0); Monocytes # (auto) 0.4 10 ^3/uL (0-1.3); Monocytes % (auto) 7.8 % (0.0-12.0); Neutrophils % (auto) 57.8 % (37.0-80.0); Nucleated Red Blood Cells % 0.4 %; Red Blood Cells 4.51 10^6/uL (4.0-5.20); Red Cell Distribution Width 16.5 % (11.8-14.3); White Blood Cell 5.2 10^3/uL (4.4-10.8)
[2023-05-15] MEDS: MAGNESIUM SULFATE 1GM/100ML 100 ML IV SCH (09:40)
[2023-05-15 10:28] LABS: Anion Gap 6 (5-15); Carbon Dioxide 33 mmol/L (20-30); Chloride 101 mmol/L (98-107); Potassium 3.1 mmol/L (3.5-5.1); Sodium 140 mmol/L (136-145)
[2023-05-15 10:34] LABS: Glucose 170 mg/dL (74-106)
[2023-05-15 10:40] LABS: BUN/Creatinine Ratio 7.1 (10.0-20.0); Blood Urea Nitrogen < 5 mg/dL (9-23)
[2023-05-15] MEDS ORDERED: SODIUM CHLORIDE LOCK 10 ML ONE (11:10)
[2023-05-15] MEDS ORDERED: diphenhdrAMINE HCL 50 MG/1 ML VL ONE (11:10)
[2023-05-15] MEDS ORDERED: MIDAZOLAM HCL 5 MG/ML-1ML VIAL ONE (11:10)
[2023-05-15] MEDS ORDERED: LIDOCAINE VISCOUS 2% 15ML UD ONE ×2 (11:10→13:24)
[2023-05-15] MEDS ORDERED: fentaNYL CITRATE 100 MCG/2 ML VL ONE ×2 (11:11→13:25)
[2023-05-15 11:47] LABS: Magnesium 1.3 mg/dL (1.6-2.6)
[2023-05-15] MEDS ORDERED: MIDAZOLAM HCL 2MG/2ML 2ml VIAL (1mg/ml) ONE (13:25)
[2023-05-15] MEDS ORDERED: DexAMETHasone SOD PHOS 10MG/1ML VIAL INJ ONE (13:44)
[2023-05-15] MEDS ORDERED: PROPOFOL 10 MG/ML 20 ML IV ONE (14:21)
[2023-05-15] MEDS ORDERED: MORPHINE SULF PF 5 MG/10 ML VIAL ONE (14:24)
[2023-05-15] MEDS: POTASSIUM CHL 20MEQ/100ML 100 ML IV SCH (14:46)
[2023-05-15 16:15] LABS: Urine Bacteria NONE SEEN /hpf (None Seen); Urine Blood Negative /uL (Negative); Urine Clarity Clear (Clear); Urine Color Yellow (Yellow); Urine Protein, UAD Negative (Negative); Urine Specific Gravity 1.005 (1.001-1.035); Urine Urobilinogen Normal (Negative); Urine WBC <1 /hpf (0 - 5)
[2023-05-15] MEDS: SUCRALFATE 1 GM/10 ML ORAL SUSP PO SCH (18:01)
[2023-05-15] MEDS: PANTOPRAZOLE 40 MG TAB PO SCH (21:25)
[2023-05-16 05:00] VITALS: BP 149/86; PULSE 69; RESP 16; TEMP 97.8; O2SAT 97
[2023-05-16 07:09] LABS: Basophils # (auto) 0 10 ^3/uL (0-0.2); Basophils % (auto) 0.1 % (0.0-2.0); Eosinophils # (auto) 0 10 ^3/uL (0-0.8); Hematocrit 36.1 % (36.0-46.0); Hemoglobin 11.7 g/dL (12.2-16.2); Lymphocytes % (auto) 17.4 % (10.0-50.0); Mean Corpuscular Hemoglobin 27.6 pg (28.0-32.0); Mean Corpuscular Hgb Conc. 32.5 g/dL (32.0-36.0); Mean Corpuscular Volume 85.1 fL (80.0-100.0); Monocytes # (auto) 0.1 10 ^3/uL (0-1.3); Monocytes % (auto) 2.6 % (0.0-12.0); Neutrophils # (auto) 4.5 10 ^3/uL (1.6-8.6); Neutrophils % (auto) 79.9 % (37.0-80.0); Nucleated Red Blood Cells % 0.2 %; Red Blood Cells 4.24 10^6/uL (4.0-5.20); Red Cell Distribution Width 16.1 % (11.8-14.3); White Blood Cell 5.6 10^3/uL (4.4-10.8)
[2023-05-16 07:10] LABS: Chloride 101 mmol/L (98-107); Potassium 3.5 mmol/L (3.5-5.1); Sodium 136 mmol/L (136-145)
[2023-05-16 07:11] LABS: Anion Gap 6 (5-15); Carbon Dioxide 29 mmol/L (20-30)
[2023-05-16 07:12] LABS: Calcium 8.5 mg/dL (8.7-10.4)
[2023-05-16 07:16] LABS: Glucose 142 mg/dL (74-106)
[2023-05-16 07:17] LABS: BUN/Creatinine Ratio 10.2 (10.0-20.0); Blood Urea Nitrogen < 5 mg/dL (9-23); Magnesium 1.4 mg/dL (1.6-2.6)
[2023-05-16 08:15] VITALS: PULSE 79
[2023-05-16] MEDS ORDERED: SUCR1TAB22 OR (08:46)
[2023-05-16] MEDS ORDERED: PANT40TA2 PO (08:46)
[2023-05-16 09:00] VITALS: BP 148/100; PULSE 94; RESP 20; TEMP 97.8; O2SAT 96
[2023-05-16] MEDS: MAGNESIUM SULFATE 1GM/100ML 100 ML IV SCH (09:00)
[2023-05-16 09:02] LABS: Hepatitis B Surface Antigen Negative (Negative)
[2023-05-16 09:23] LABS: Hepatitis C Antibody Negative (Negative)
[2023-05-16] MEDS: MAGNESIUM OXIDE 400 MG TAB PO SCH (10:12)
[2023-05-16] MEDS: LORazepam 0.5 MG TAB PO PRN (10:14)
[2023-05-16] MEDS: rifAXIMin 550 MG TAB PO SCH (10:15)
[2023-05-16] MEDS: CITALOPRAM HYDROBR 20 MG TAB PO SCH (10:15)
[2023-05-16 13:00] VITALS: BP_SYST 137; BP_SYST 142; BP_DIAS 87; BP_DIAS 95; PULSE 71; PULSE 78; RESP 18; TEMP 98.1; TEMP 98.8; O2SAT 95; O2SAT 96
== END 2023-05-16 20:45 | disposition home or self-care (01) | DRG 241 ==
LOC: EDBD 01:54 → ER 01:54 → TELE 11:03 → TELE-CENTR 05-13 15:00
PROVIDERS: ADMIT Internal Medicine; ATTEND Internal Medicine Geriatric Medicine
PROC: 0DB98ZX Excision of Duodenum, Via Natural or Artificial Opening Endoscopic, Diagnostic (ICD-10-PCS; 2023-05-15)
PROC: 0DB78ZX Excision of Stomach, Pylorus, Via Natural or Artificial Opening Endoscopic, Diagnostic (ICD-10-PCS; principal; 2023-05-15 13:34)
DX: K29.91 Gastroduodenitis, unspecified, with bleeding (principal); D68.9 Coagulation defect, unspecified; D69.6 Thrombocytopenia, unspecified; E87.1 Hypo-osmolality and hyponatremia; E11.9 Type 2 diabetes mellitus without complications; I10 Essential (primary) hypertension; K74.60 Unspecified cirrhosis of liver; R00.0 Tachycardia, unspecified; E87.6 Hypokalemia; G40.909 Epilepsy, unspecified, not intractable, without status epilepticus; F41.9 Anxiety disorder, unspecified; K31.9 Disease of stomach and duodenum, unspecified; Z80.3 Family history of malignant neoplasm of breast; K44.9 Diaphragmatic hernia without obstruction or gangrene; Z82.49 Family history of ischemic heart disease and other diseases of the circulatory system; Z83.2 Family history of diseases of the blood and blood-forming organs and certain disorders involving the immune mechanism; Z83.3 Family history of diabetes mellitus; Z85.05 Personal history of malignant neoplasm of liver
CPT/HCPCS: 36415; 43239; 71045; 74176; 80048; 80053; 81001; 82105; 82140; 82248; 83690; 83735; 83880; 84484; 84702; 85025; 85379; 85610; 85730; 86803; 86850; 86900; 86901; 87086; 87340; 93005; C9113; G0378; J1100; J2250; J2405; J2704; J3480

== ENCOUNTER 2024-12-11 21:03 | Inpatient (IN) | payer MEDICAID ==
[~2024-12-11] VITALS: Ht 185.4 cm; Wt 86.6 kg
[~2024-12-11 21:03] MED LIST changes: -AML5T PO; -CEFD300C2 PO; -HYDR25TA5 GT; -LEVO500T91 PO; -LISI10TA34 PO; -MET500T PO; +PANT40TA2 PO; +RIFA550T PO; +SUCR1TAB31 OR
--- NOTE | 2024-12-11 21:18 | ECG ---
[facility] Test Date: 2024-12-11 Test Time: 20:56:51 Pat Name: POLLY WOLFF Department: [facility] ED Patient ID: [id number] Room: 0287 Gender: F Surgery Technician: PAWAN : 1980 Requested By: EMERGENCY EMERGENCY Order Number: [id number] Reading MD: Graham Rodriguez Measurements Intervals Bertrand Rate: 89 P: 46 MI: 147 QRS: -20 QRSD: 108 T: 30 QT: 392 QTc: 477 Interpretive Statements Sinus rhythm RSR' in V1 or V2, probably normal variant Left ventricular hypertrophy Electronically Signed On 12-17-2024 21:54:04 PDT by Graham Rodriguez Please click the below link to view image of tracing.
[2024-12-11] MEDS ORDERED: levETIRAcetam 1000 mg/100ml 100 ML IV ONE (21:30)
--- NOTE | 2024-12-11 21:30 | ED.PDOC ---
HPI (NEURO) HPI Comments 44-year-old female who came to ER via EMS for seizures. Patient known chronic alcoholic. Has a history of seizures, she has been off her Keppra and lorazepam for the past few months. Last seizure episode was 3 days ago. Had a witnessed seizure episode while on the [facility] earlier. REVIEW OF SYSTEMS: General: No fever, no chills, or fatigue HEENT: No sore throat, no earache, no congestion, no neck pain. Cardiac: No chest pain. No palpitations. Lungs: No shortness of breath, no cough. GI: No nausea, no vomiting, no diarrhea, no constipation, no abdominal pain : No dysuria, frequency, or urgency. No hematuria. Musculoskeletal: No joint pain , no joint swelling, no extremity edema. Skin: No rash, no itching. Neuro: No headache, no dizziness, no weakness, (+) seizures EXAM: General: Awake, alert and oriented. No acute distress. Skin: Skin in warm, dry and intact. Appropriate color for ethnicity. HEENT: The head is normocephalic and atraumatic. Conjunctivae are clear without exudates or hemorrhage. Sclera is non-icteric. EOM are intact. No signs of nystagmus. Eyelids are normal in appearance without swelling or lesions. Oral mucosa is pink and moist Neck: The neck is supple with normal range of motion. No JVD. Cardiac: Heart rate and rhythm are normal. No murmurs, gallops, or rubs are auscultated. Respiratory: No signs of respiratory distress. Lung sounds are clear in all lobes bilaterally without rales, rhonchi, or wheezes. Abdominal: Abdomen is soft, non-tender without distention. Bowel sounds are present and normoactive in all four quadrants. Extremities: Upper and lower extremities are atraumatic in appearance without deformity or edema. Neurological: The patient is awake, alert and oriented to person, place, and time with slow speech. There is no facial asymmetry. Chief Complaint: Seizure Time Seen by MD: 21:16 Primary Care Provider: UNKNOWN Mode of Arrival: Ambulatory Past Medical History PAST MEDICAL HISTORY: Anxiety, Cancer, High Lipids, HTN, Liver (Liver cirrhosis), Seizures Surgical History: Denies all surgeries [employer] History: Ovarian Cysts Family History Family History: Family hx of DM, Family hx of heart adán Family History (Other): Thyroid Social History Smoker: Non-Smoker Alcohol: Heavy Drugs: Denies Drug Use Lives In: Home EKG EKG : Pulse Rate (adult): 89 Cardiac Rhythm: NSR Was a procedure done? Was a procedure done?: No Differential Diagnosis (SZ) Seizure: Psychogenic Seizure, Alcohol Withdrawl, Idiopathic, Encephalopathy, Epilepsy-Break Through, Epilepsy-Status, Other CVA: Delirium Tremens, Other Headache: Other (Sepsis) X-Ray, Labs, Meds, VS Vital Signs Date Time Temp Pulse Resp B/P (MAP) Pulse Ox O2 Delivery O2 Flow Rate FiO2 12/12/24 20:00 119 12/12/24 18:39 100.3 12/12/24 18:21 100 14 129/74 (92) 100 12/12/24 16:00 107 12/12/24 15:00 115 16 125/70 (88) 99 12/12/24 13:00 111 16 99 Room Air* 0 N/A Nasal Cannula* 12/12/24 13:00 99.1 111 25 133/74 (93) 99 99.1 12/12/24 12:35 110 12/12/24 09:09 116 16 141/84 (103) 99 12/12/24 08:32 106 16 100 Nasal Cannula* 2 28 12/12/24 08:32 98.1 106 16 120/73 (89) 100 98.1 12/12/24 08:03 93 12/12/24 03:30 106 15 110/68 (82) 96 12/12/24 01:30 91 13 121/82 (95) 99 12/12/24 00:30 91 11 125/80 (95) 100 12/11/24 22:30 Room Air* 0 21 12/11/24 22:30 98.7 97 23 145/88 (107) 96 98.7 12/11/24 21:29 89 12/11/24 21:06 97.0 98 18 156/58 98 97.0 12/11/24 21:03 89 Lab Test 12/12/24 22:50 12/12/24 14:11 12/12/24 08:14 12/12/24 06:19 Range/Units Lactic Acid Level 2.7 *H 0.4-2.0 mmol/L Plasma/Serum Blood Alcohol 184.7 H 282.6 H <10 mg/dL Urine Test Negative Negative Magnesium Level 1.7 1.6-2.6 mg/dL Test 12/11/24 21:35 12/11/24 08:14 Range/Units White Blood Count 5.9 4.4-10.8 10^3/uL Red Blood Count 4.26 4.0-5.20 10^6/uL Hemoglobin 12.4 12.2-16.2 g/dL Hematocrit 37.8 36.0-46.0 % Mean Corpuscular Volume 88.7 80.0-100.0 fL Mean Corpuscular Hemoglobin 29.1 28.0-32.0 pg Mean Corpuscular Hemoglobin Concent 32.8 32.0-36.0 g/dL Red Cell Distribution Width 18.1 H 11.8-14.3 % Platelet Count 74 L 140-450 10^3/uL Mean Platelet Volume 8.2 6.9-10.8 fL Neutrophils (%) (Auto) 43.5 37.0-80.0 % Lymphocytes (%) (Auto) 47.3 10.0-50.0 % Monocytes (%) (Auto) 8.1 0.0-12.0 % Eosinophils (%) (Auto) 0.2 0.0-7.0 % Basophils (%) (Auto) 0.9 0.0-2.0 % Neutrophils # (Auto) 2.6 1.6-8.6 10 ^3/uL Lymphocytes # (Auto) 2.8 0.4-5.4 10 ^3/uL Monocytes # (Auto) 0.5 0-1.3 10 ^3/uL Eosinophils # (Auto) 0 0-0.8 10 ^3/uL Basophils # (Auto) 0.1 0-0.2 10 ^3/uL Nucleated Red Blood Cells 0.3 % Sodium Level 143 136-145 mmol/L Potassium Level 3.2 L 3.5-5.1 mmol/L Chloride Level 105 98-107 mmol/L Carbon Dioxide Level 22 20-31 mmol/L Anion Gap 16 H 5-15 Blood Urea Nitrogen 7 L 9-23 mg/dL Creatinine 0.51 L 0.550-1.02 mg/dL Glomerular Filtration Rate Calc 117 >90 mL/min BUN/Creatinine Ratio 13.7 10.0-20.0 Serum Glucose 79 74-106 mg/dL Calcium Level 8.2 L 8.7-10.4 mg/dL Total Bilirubin 4.4 H 0.2-1.0 mg/dL Aspartate Amino Transferase (AST) 252 H 13-40 U/L Alanine Aminotransferase (ALT) 59 H 7-40 U/L Alkaline Phosphatase 157 H 46-116 U/L Total Protein 8.3 H 5.7-8.2 g/dL Albumin 3.7 3.2-4.8 g/dL Levetiracetam Level Pending Plasma/Serum Blood Alcohol 349.1 H <10 mg/dL Urine Color Dark-yellow Yellow Urine Clarity Turbid H Clear Urine pH 6.5 5.0-9.0 Urine Specific [place] 1.025 1.001-1.035 Urine Protein Trace H Negative Urine Ketones 2+ H Negative Urine Blood Negative Negative /uL Urine Nitrite Negative Negative Urine Bilirubin 1+ H Negative Urine Urobilinogen 8 H Negative mg/dL Urine Leukocyte Esterase Negative Negative /uL Urine RBC 2 0 - 4 /hpf Urine Microscopic WBC 2 0-5 /HPF Urine Squamous Epithelial Cells Few <5 /hpf Urine Bacteria None seen None Seen /hpf Urine Mucus Few None Seen Urine Glucose Normal Normal mg/dL Urine Opiates Screen Neg NEGATIVE Urine Fentanyl Screen Neg NEGATIVE Urine Barbiturates Screen Neg NEGATIVE Urine Phencyclidine Screen Neg NEGATIVE Urine Amphetamines Screen Neg NEGATIVE Urine Benzodiazepines Screen Neg NEGATIVE Urine Cocaine Screen Neg NEGATIVE Urine Cannabinoids Screen Pos NEGATIVE Current Medications Medications (Trade) Dose Ordered Sig/Neto Route Start Time Stop Time Status Last Admin Sodium Chloride 1,000 ml @ 1,000 mls/hr Q1H ONCE IV 12/12/24 06:15 12/12/24 07:14 DC 12/12/24 06:15 Thiamine HCl 100 mg ONCE ONCE PO 12/12/24 09:15 12/12/24 09:16 DC 12/12/24 09:31 Ondansetron HCl (Zofran) 4 mg ONCE ONCE IM 12/12/24 18:15 12/12/24 18:16 DC 12/12/24 18:39 Chlordiazepoxide HCl (Librium Capsule) 50 mg ONCE ONCE PO 12/12/24 18:15 12/12/24 18:16 DC 12/12/24 18:39 Acetaminophen (Tylenol Tablet) 650 mg ONCE ONCE PO 12/12/24 18:15 12/12/24 18:16 DC 12/12/24 18:39 Levetiracetam (Keppra Tablet) 1,000 mg ONCE ONCE PO 12/12/24 18:45 12/12/24 18:49 DC 12/12/24 18:51 Sodium Chloride 1,000 ml @ 1,000 mls/hr Q1H ONCE IV 12/12/24 22:00 12/12/24 22:59 DC 12/13/24 00:34 Time of 1ST Reevaluation: 21:25 Reevaluation 1ST: Unchanged Patient Education/Counseling: Need For Follow Up Family Education/Counseling: No Family Present Departure 1 Departure Time of Disposition: 05:17 Impression: Primary Impression: Seizure disorder Additional Impressions: Alcohol abuse Elevated LFTs Hyperbilirubinemia Alcohol withdrawal Disposition: 01 HOME / SELF CARE / HOMELESS Condition: Stable Additional Instructions: ED DISCHARGE INSTRUCTIONS Instructions: Please read all instructions provided in this packet carefully. Although you have been discharged from the Emergency Department, this does not mean that you have a "clean bill of health". No definitive diagnosis for your symptoms has been made today. It is possible that you are in the process of developing a serious illness. This is why you must return to the ED without fail if any new or worsening symptoms (especially if your symptoms include chest pain, trouble breathing, abdominal pain, fever, headache, confusion, trouble seeing, or trouble walking) It is also very important that you see a primary care provider (PCP) within the next 3-5 days to follow up. If you are unable to get an appointment, return to the ED for re-evaluation. SEIZURE EDUCATION Seizures are caused by abnormal patterns of electrical signals in the brain. They are different for each person. Seizures can affect movement, speech, vision, or awareness. Some people have only slight shaking of a hand and do not pass out. Other people may pass out and have shaking of the whole body. Some people appear to stare into space. They are awake, but they can't respond normally. Later, they may not remember what happened. You may need tests to identify the type and cause of the seizures. A seizure may occur only once, or you may have them more than one time. Taking medicines as directed and following up with your doctor may help keep you from having more seizures. The doctor has checked you carefully, but problems can develop later. If you notice any problems or new symptoms, get medical treatment right away. Follow-up care is a smith part of your treatment and safety. Be sure to make and go to all appointments, and call your doctor if you are having problems. It's also a good idea to know your test results and keep a list of the medicines you take. How can you care for yourself at home? Be safe with medicines. Take your medicines exactly as prescribed. Call your doctor if you think you are having a problem with your medicine. Do not do any activity that could be dangerous to you or others until your doctor says it is safe to do so. For example, do not drive a car, operate machinery, swim, or climb ladders. Be sure that anyone treating you for any health problem knows that you have had a seizure and what medicines you are taking for it. Identify and avoid things that may make you more likely to have a seizure. These may include lack of sleep, alcohol or drug use, stress, or not eating. If possible, take a shower instead of a bath. Having a seizure while in a bath can increase the risk of drowning. When should you call for help? Call 911 anytime you think you may need emergency care. For example, call if: You have another seizure. You have new symptoms, such as trouble walking, speaking, or thinking clearly. Call your doctor now or seek immediate medical care if: You are not acting normally. Watch closely for changes in your health, and be sure to contact your doctor if you have any problems. e-Prescriptions Levetiracetam (KEPPRA TABLET) 500 Mg Tb 1000 MG PO BID for 30 Days, #120 TAB Prov: ZABRINA ALFARO MD 12/12/24 Comments 44 year old female with breakthrough seizure due to non compliance with Keppra. Patient observed in the emergency department for over 6 hours with no further seizure-like activity. Patient observed overnight due to being intoxicated. Patient's heart rate becoming increasingly elevated, reports feeling anxious/jittery, history of DT in the past. We will admit for impending alcohol withdrawal, seizure disorder. Critical Care Note Critical Care Time?: No Stability Stability form required: No Heart Score Heart Score: Heart Score Response (Comments) Value History N/A 0 EKG N/A 0 Age N/A 0 Risk Factors N/A 0 Troponin N/A 0 Total 0 I personally scribed for ZABRINA ALFARO MD ([email or web address]) on 12/11/24 at 21:29. Electronically submitted by Vincent Palacios ([facility]). ZABRINA ALFARO MD Dec 11, 2024 21:29 ARACELI MERRITT DO Dec 12, 2024 16:13
[2024-12-11] MEDS: levETIRAcetam 500 MG TAB PO ONE (21:41)
[2024-12-11 21:50] LABS: Hematocrit 37.8 % (36.0-46.0); Hemoglobin 12.4 g/dL (12.2-16.2); Mean Corpuscular Hemoglobin 29.1 pg (28.0-32.0); Mean Corpuscular Volume 88.7 fL (80.0-100.0); Nucleated Red Blood Cells % 0.3 %
[2024-12-11 22:07] LABS: Albumin 3.7 g/dL (3.2-4.8); Anion Gap 16 (5-15); BUN/Creatinine Ratio 13.7 (10.0-20.0); Carbon Dioxide 22 mmol/L (20-31); Chloride 105 mmol/L (98-107); Glucose 79 mg/dL (74-106); Sodium 143 mmol/L (136-145)
[2024-12-11 22:10] LABS: Alanine Aminotransferase 59 U/L (7-40); Alkaline Phosphatase 157 U/L (46-116); Bilirubin, Total 4.4 mg/dL (0.2-1.0); Blood Urea Nitrogen 7 mg/dL (9-23); Calcium 8.2 mg/dL (8.7-10.4); Potassium 3.2 mmol/L (3.5-5.1); Total Protein 8.3 g/dL (5.7-8.2)
[2024-12-12] MEDS: SODIUM CHLORIDE 0.9% 1,000 ML IV ONE ×3 (00:05→08:35)
[2024-12-12] MEDS: POTASSIUM CHL 20 Meq TABLET PO ONE (00:10)
--- NOTE | 2024-12-12 01:47 | DVH ---
INDICATION: Right upper quadrant ultrasound, elevated LFTs TECHNIQUE: Multiple real-time sonographic images were obtained of the right upper quadrant. COMPARISON: CT CT AB PEL WO CON-NO ORAL OR IV on DOS: 05/12/23, US PELVIC on DOS: 02/19/23, US PELVIC o n DOS: 02/18/23, CT CT AB PEL WO CON-NO ORAL OR IV on DOS: 02/17/23, CT AB PEL WITH IV CON ONLY on DOS: 08/10/21 FINDINGS: The liver demonstrates diffusely coarsened echotexture without focal mass lesions. The live r measures 16.0 cm. Questionable hepatofugal portal venous flow. No evidence of pleural effusion or abdominal ascites. There is no intrahepatic or extrahepatic ductal dilatation. The common duct measures 0.5 cm. The gallbladder is without evidence of stone or sludge. The gallbladder wall measures 0.2 cm and is w ithin normal limits. Negative sonographic Rojas's sign. The right kidney measures 11.0 cm. The right kidney is normal in contour, size, and shape. The echoge nicity is normal. There is no hydronephrosis. The pancreas is not well visualized due to overlying bowel gas. IMPRESSION: 1. Coarsened hepatic echotexture, which can be seen in the setting of chronic liver disease. 2. Questionable hepatofugal portal venous flow.
[2024-12-12] MEDS ORDERED: KEP500T PO (05:18)
[2024-12-12] MEDS: THIAMINE HCL 100 MG TAB PO ONE ×2 (06:54→09:31)
[2024-12-12 08:32] VITALS: PULSE 106; RESP 16; RESP 24; O2SAT 100
[2024-12-12 09:07] LABS: Urine Protein, UAD TRACE (Negative)
[2024-12-12 09:18] LABS: Cannabinoid Screen, Urine Pos (NEGATIVE)
[2024-12-12 09:19] LABS: Amphetamine Screen, Urine Neg (NEGATIVE); Barbiturate Scree,Urine Neg (NEGATIVE); Benzodiazephine Screen, Urine Neg (NEGATIVE); Cocaine Screen, Urine Neg (NEGATIVE); Opiate Scree,Urine Neg (NEGATIVE); Phencyclidine Screen, Urine Neg (NEGATIVE)
--- NOTE | 2024-12-12 09:49 | DVH ---
CT brain without contrast CLINICAL INDICATION: etoh FINDINGS: The study was performed in a multidetector scanner. This study performed taking axial image s from the skull base up to the vertex. Both brain and bone windows are photographed. Dose lowering techniques have been used including automated exposure control and adjustment of mA and /or KV according to patient size. No intra cranial hemorrhage or edema. Cortical sulcal markings are prominent. Ventricular size is normal. Ventricles are midline in position. No skull fractures. No paranasal sinus disease IMPRESSION: 1. Atrophy. No acute intracranial pathology Computed Tomographic Radiation Dosimetry Report: Total CTDI vol = 64 mGy Total DLP = 1129 mGy-cm All CT scans at this medical facility are performed using dose modulation techniques as appropriate to a performed exam including the following: Automated exposure control was utilized; adjustment of the MA and/or KvP according to patient size; and use of iterative reconstruction technique.
[2024-12-12 13:00] VITALS: PULSE 111; RESP 16; O2SAT 99
[2024-12-12] MEDS ORDERED: diphenhdrAMINE HCL 50 MG/1 ML VL IV ONE (16:30)
[2024-12-12] MEDS: ONDANSETRON HCL 4 MG/2 ML VIAL IM ONE (18:39)
[2024-12-12] MEDS: ACETAMINOPHEN 325 MG TAB PO ONE (18:39)
[2024-12-12] MEDS: levETIRAcetam 500 MG TAB PO ONE (18:51)
[2024-12-12 23:25] LABS: Lactic Acid w/Reflex 2.7 mmol/L (0.4-2.0)
--- NOTE | 2024-12-12 23:28 | DVHHP2 ---
STEVIE CASTREJON RESIDENT 12/12/24 2328: History of Present Illness History of Present Illness Patient is 44 year female with past medical history of liver cirrhosis, anxiety, depression who came to the hospital with a chief complaint of witnessed seizure at one of the crisis Center, patient was brought to the hospital via EMS. Patient has multiple history of alcohol withdrawal seizures in the past. As per patient she had last drink yesterday around 4:00 p.m., drank 1 L of vodka. As per patient she drinks alcohol for long time. Patient also complaining of left- sided pain mainly in the left shoulder and the left hip, as per patient she fell down on the left side. Patient denying any other symptoms including fever, chills, nausea, vomiting. Patient had last bowel movement today. No signs of any bleeding. As per patient she feels dehydrated and her urine is really dark. No any complaint at this point. PMH: Liver cirrhosis, anxiety, depression Past surgical history: None Allergy: None Personal history: Patient is homeless, patient drinks alcohol, drinks vodka approximately 1 L per day. Denied smoking or any other recreational drug use. Home medication: Keppra 100 mg p.o. b.i.d., lorazepam 1 mg p.o. p.r.n., ondansetron 4 mg q.6, Protonix 40 mg p.o. daily, rifaximin 550 mg p.o. b.i.d., sertraline 25 mg p.o. daily, spironolactone 25 mg p.o. daily, sucralfate 1 g p.o. b.i.d.. Cholecalciferol 5000 IU once daily. Family history: Noncontributory Review of Systems Constitutional: No: Fever, Chills, Sweats, Weakness, Malaise, Other Eyes: No: Pain, Vision change, Conjunctivae inflammation, Eyelid inflammation, Other, Redness ENT: No: Ear pain, Ear discharge, Nose pain, Nose discharge, Nose congestion, Mouth pain, Mouth swelling, Throat pain, Throat swelling, Other Respiratory: No: Cough, Dry, Shortness of breath, SOB with excertion, Wheezing, Hemoptysis, Pleuritic Pain, Sputum, Wheezing, Other Cardiovascular: No: Chest Pain, Palpitations, Orthopnea, Paroxysmal Noc. Dyspne a, Edema, Lt Headedness, Other Gastrointestinal: No: Nausea, Vomiting, Abdominal Pain, Diarrhea, Constipation, Melena, Hematochezia, Other Genitourinary: No Dysuria, No Frequency, No Incontinence, No Hematuria, No Retention, No Other Musculoskeletal: No: other, neck pain, shoulder pain, arm pain, back pain, hand pain, leg pain, foot pain Skin: No: Rash, Lesions, Jaundice, Bruising, Other Neurological: Weakness, Numbness (Numbness in bilateral lower extremity), Seizures Allergies: Coded Allergies: NO KNOWN ALLERGIES (Unverified , 02/24/19) Exam Vital Signs Vital Signs Date Time Temp Pulse Resp B/P (MAP) Pulse Ox O2 Delivery O2 Flow Rate FiO2 12/12/24 20:00 119 12/12/24 18:39 100.3 12/12/24 18:21 14 129/74 (92) 100 12/12/24 13:00 Room Air* 0 N/A Nasal Cannula* Exam General Appearance: Cooperative. Well developed. Well nourished. NAD Head Exam: Normal inspection Neck Exam: Normal inspection. Non-tender. Normal alignment Pulmonary/Respiratory: Chest non-tender. Clear bilateral breath sounds Cardiovascular/Chest: Regular rate and rhythm. No murmurs. No JVD. Peripheral Pulses: 2+ Radial (R). 2+ Radial (L). 2+ Pedal (R). 2+ Pedal (L) Abdominal Exam: Normal bowel sounds. Soft. Nontender. No hepatospenomegaly. No masses Ankle Exam: Negative ankle edema Lower extremities: Negative lower extremity edema Neuro/Mental Status: A&O x4. Coherent Thoughts/Psych: Normal thought pattern. Appropriate mood and affect. Good judgement and insight Appearance: In no acute distress Skin Exam: Normal inspection. Normal color. Warm. Dry Labs/Xrays Labs Test 12/12/24 22:50 12/12/24 14:11 12/12/24 08:14 12/12/24 06:19 Range/Units Lactic Acid Level 2.7 *H 0.4-2.0 mmol/L Plasma/Serum Blood Alcohol 184.7 H <10 mg/dL Urine Test Negative Negative Magnesium Level 1.7 1.6-2.6 mg/dL Test 12/11/24 21:35 12/11/24 08:14 Range/Units White Blood Count 5.9 4.4-10.8 10^3/uL Red Blood Count 4.26 4.0-5.20 10^6/uL Hemoglobin 12.4 12.2-16.2 g/dL Hematocrit 37.8 36.0-46.0 % Mean Corpuscular Volume 88.7 80.0-100.0 fL Mean Corpuscular Hemoglobin 29.1 28.0-32.0 pg Mean Corpuscular Hemoglobin Concent 32.8 32.0-36.0 g/dL Red Cell Distribution Width 18.1 H 11.8-14.3 % Platelet Count 74 L 140-450 10^3/uL Mean Platelet Volume 8.2 6.9-10.8 fL Neutrophils (%) (Auto) 43.5 37.0-80.0 % Lymphocytes (%) (Auto) 47.3 10.0-50.0 % Monocytes (%) (Auto) 8.1 0.0-12.0 % Eosinophils (%) (Auto) 0.2 0.0-7.0 % Basophils (%) (Auto) 0.9 0.0-2.0 % Neutrophils # (Auto) 2.6 1.6-8.6 10 ^3/uL Lymphocytes # (Auto) 2.8 0.4-5.4 10 ^3/uL Monocytes # (Auto) 0.5 0-1.3 10 ^3/uL Eosinophils # (Auto) 0 0-0.8 10 ^3/uL Basophils # (Auto) 0.1 0-0.2 10 ^3/uL Nucleated Red Blood Cells 0.3 % Sodium Level 143 136-145 mmol/L Potassium Level 3.2 L 3.5-5.1 mmol/L Chloride Level 105 98-107 mmol/L Carbon Dioxide Level 22 20-31 mmol/L Anion Gap 16 H 5-15 Blood Urea Nitrogen 7 L 9-23 mg/dL Creatinine 0.51 L 0.550-1.02 mg/dL Glomerular Filtration Rate Calc 117 >90 mL/min BUN/Creatinine Ratio 13.7 10.0-20.0 Serum Glucose 79 74-106 mg/dL Calcium Level 8.2 L 8.7-10.4 mg/dL Total Bilirubin 4.4 H 0.2-1.0 mg/dL Aspartate Amino Transferase (AST) 252 H 13-40 U/L Alanine Aminotransferase (ALT) 59 H 7-40 U/L Alkaline Phosphatase 157 H 46-116 U/L Total Protein 8.3 H 5.7-8.2 g/dL Albumin 3.7 3.2-4.8 g/dL Urine Color Dark-yellow Yellow Urine Clarity Turbid H Clear Urine pH 6.5 5.0-9.0 Urine Specific [place] 1.025 1.001-1.035 Urine Protein Trace H Negative Urine Ketones 2+ H Negative Urine Blood Negative Negative /uL Urine Nitrite Negative Negative Urine Bilirubin 1+ H Negative Urine Urobilinogen 8 H Negative mg/dL Urine Leukocyte Esterase Negative Negative /uL Urine RBC 2 0 - 4 /hpf Urine Microscopic WBC 2 0-5 /HPF Urine Squamous Epithelial Cells Few <5 /hpf Urine Bacteria None seen None Seen /hpf Urine Mucus Few None Seen Urine Glucose Normal Normal mg/dL Urine Opiates Screen Neg NEGATIVE Urine Fentanyl Screen Neg NEGATIVE Urine Barbiturates Screen Neg NEGATIVE Urine Phencyclidine Screen Neg NEGATIVE Urine Amphetamines Screen Neg NEGATIVE Urine Benzodiazepines Screen Neg NEGATIVE Urine Cocaine Screen Neg NEGATIVE Urine Cannabinoids Screen Pos NEGATIVE SEPSIS Sepsis Screen Date sepsis recognized/suspect: Dec 12, 2024 Time Sepsis recognized/suspect: 1300 Recent Procedure: No On Antibiotic Therapy: No Respiratory Rate >20: No Heart Rate >90: Yes Temp<36 C (96.8 F) or >38.3 C: No SBP <90 or MAP <65 mmHG: No New Acute Mental Status Change: No Is the patient on CPAP, BIPAP,: No Physician Orders Urinalysis (12/12/24 21:52) Blood Culture (12/12/24 21:52) Covid19 Antigen Eileen (12/12/24 ) Rapid Influenza A&B (12/12/24 21:52) Sodium Chloride 0.9% (12/12/24 22:00) Admit (12/12/24 23:18) Complete Blood Count (12/13/24 04:00) Comprehensive Metabolic Panel (12/13/24 04:00) Lipase (12/12/24 23:18) Chest Xray 1 View (12/12/24 23:18) NS (12/12/24 23:30) Thiamine Inj (12/12/24 23:30) Thiamine Tab (12/13/24 10:00) Folic Acid Tablet (12/12/24 23:30) Folic Acid Tablet (12/13/24 10:00) Librium 50mg Po Q8hr Day 1 (12/12/24 23:30) Librium 50mg Po Q12hr Day 2 (12/13/24 10:00) Librium 25mg Po Q12hr X Day 3 (12/14/24 10:00) Librium 25mg Po Qam Day 4 (12/15/24 07:00) Levetiracetam Tablet (Keppra Tablet) (12/13/24 10:00) Pantoprazole Tablet (Protonix Tablet) (12/13/24 10:00) Rifaximin (Xifaxan) (12/13/24 10:00) Sertraline Hcl (Zoloft) (12/13/24 10:00) Spironolactone (Aldactone) (12/13/24 10:00) Sucralfate Tab (Carafate Tab) (12/13/24 10:00) (Nf) Gabapentin (12/13/24 06:00) Potassium Effervesent Tab (Klor-Con/Ef) (12/12/24 23:30) Acute Hepatitis Panel (12/12/24 23:18) Vital Signs Date Time Temp Pulse Resp B/P (MAP) Pulse Ox O2 Delivery O2 Flow Rate FiO2 12/12/24 20:00 119 12/12/24 18:39 100.3 12/12/24 18:21 100 14 129/74 (92) 100 12/12/24 16:00 107 Laboratory Tests Test 12/12/24 22:50 Lactic Acid Level 2.7 mmol/L (0.4-2.0) *H Medications Medications Dose Ordered Sig/Neto Route Start Time Stop Time Status Last Admin Dose Admin Acetaminophen 650 mg ONCE ONCE PO 12/12/24 18:15 12/12/24 18:16 DC 12/12/24 18:39 650 MG Chlordiazepoxide HCl 50 mg ONCE ONCE PO 12/12/24 18:15 12/12/24 18:16 DC 12/12/24 18:39 50 MG Levetiracetam 1,000 mg ONCE ONCE PO 12/12/24 18:45 12/12/24 18:49 DC 12/12/24 18:51 1,000 MG Ondansetron HCl 4 mg ONCE ONCE IM 12/12/24 18:15 12/12/24 18:16 DC 12/12/24 18:39 4 MG Assessment/Plan Assessment/Plan Alcohol intoxication Alcohol withdrawal seizures Alcoholic hepatitis Liver cirrhosis Elevated bilirubin Lactic acidosis likely due to underlying liver disease Hypokalemia Metabolic acidosis likely due to lactic acidosis Severe dehydration Thrombocytopenia likely due to underlying liver cirrhosis Plan/recommendation CIWA score 19 [facility] discriminant function for alcoholic hepatitis: 23.3 points. -patient's CIWA score is 19: Continue Librium protocol with taper dose. Currently Librium 50 mg p.o. Q eight. -p.r.n. lorazepam for withdrawal seizure -IV fluid 100 mL/hour -thiamine in 100 mg p.o. daily and folic acid 1 mg p.o. daily -for alcohol withdrawal seizure: Continue home medication Keppra 100 mg p.o. b.i.d. -resume home medication including rifaximin, sertraline, spironolactone, sucralfate. -counseled on alcohol cessation -homeless: Social service consult for resources -PUD prophylaxis with Protonix -DVT prophylaxis: With low platelet count, SCD. Continue to monitor liver function test and precaution for seizures. Goals of care discussed greater than 24 minutes, full code status. Plan discussed with Dr. Lugo Plan discussed with: Patient, Other My Orders Orders - STEVIE CASTREJON RESIDENT Procedure Category Date Status Time Admit ADMIT 12/12/24 Transmitted 23:18 Complete Blood Count LAB 12/13/24 Verified 04:00 Comprehensive LAB 12/13/24 Verified Metabolic Panel 04:00 Lipase LAB 12/12/24 Transmitted 23:18 Chest Xray 1 View XY 12/12/24 Transmitted 23:18 NS PHA 12/12/24 Transmitted 23:30 Thiamine Inj PHA 12/12/24 Transmitted 23:30 Thiamine Tab PHA 12/13/24 Transmitted 10:00 Folic Acid Tablet PHA 12/12/24 Transmitted 23:30 Folic Acid Tablet PHA 12/13/24 Transmitted 10:00 Librium 50mg Po Q8hr PHA 12/12/24 Transmitted Day 1 23:30 Librium 50mg Po Q12hr PHA 12/13/24 Transmitted Day 2 10:00 Librium 25mg Po Q12hr PHA 12/14/24 Transmitted X Day 3 10:00 Librium 25mg Po Qam PHA 12/15/24 Transmitted Day 4 07:00 Levetiracetam Tablet PHA 12/13/24 Transmitted (Keppra Tablet) 10:00 Pantoprazole Tablet PHA 12/13/24 Transmitted (Protonix Tablet) 10:00 Rifaximin (Xifaxan) PHA 12/13/24 Transmitted 10:00 Sertraline Hcl PHA 12/13/24 Verified (Zoloft) 10:00 Spironolactone PHA 12/13/24 Verified (Aldactone) 10:00 Sucralfate Tab PHA 12/13/24 Verified (Carafate Tab) 10:00 (Nf) Gabapentin PHA 12/13/24 Verified 06:00 Potassium Effervesent PHA 12/12/24 Verified Tab (Klor-Con/Ef) 23:30 Acute Hepatitis Panel LAB 12/12/24 Transmitted 23:18 Date of Service: Dec 12, 2024 Billing Provider: PADMA LUGO MD Common Visit Codes: [id number] INP/OBS CARE (HIGH) Secondary Visit Codes: [id number] CARE PLAN 30 MINUTES PADMA LUGO MD 12/13/24 1301: Review of Systems Allergies: Coded Allergies: NO KNOWN ALLERGIES (Unverified , 02/24/19) Date of Service: Dec 12, 2024 ([place] Patient) Billing Provider: PADMA LUGO MD Common Visit Codes: [id number] INP/OBS CARE (HIGH) Secondary Visit Codes: [id number] CARE PLAN 30 MINUTES STEVIE CASTREJON Dec 12, 2024 23:28 PADMA LUGO MD Dec 13, 2024 13:01
[2024-12-12] MEDS: SODIUM CHLORIDE 0.9% 1,000 ML IV SCH (23:30)
--- NOTE | 2024-12-12 23:52 | DVH ---
CHEST RADIOGRAPH Indication: TACHYCARDIA Technique: Single frontal view of the chest was obtained COMPARISON: XY CHEST XRAY 1 VIEW on DOS: 05/12/23, XY CHEST PORTABLE on DOS: 07/14/22, CXRP on DOS: , CHEST PORTABLE on DOS: 03/13/22, CHEST PORTABLE on DOS: 07/24/20 FINDINGS: Lungs and pleural spaces are clear. Cardiac silhouette is enlarged. Bones and soft tissues demonstrat e no significant abnormality. IMPRESSION: No acute disease.
[2024-12-13] MEDS: POTASSIUM EFFERVESENT TAB 25 MEQ PO ONE (00:24)
[2024-12-13] MEDS: THIAMINE 100mg/ml INJ (200mg/2ml VIAL) IV ONE (00:25)
[2024-12-13] MEDS: FOLIC ACID 1 MG TAB PO ONE (00:25)
[2024-12-13] MEDS: SODIUM CHLORIDE 0.9% 1,000 ML IV ONE (00:34)
[2024-12-13 02:00] VITALS: BP 149/83; PULSE 90; RESP 13; O2SAT 96
[2024-12-13 03:40] LABS: Alkaline Phosphatase 109 U/L (46-116); Anion Gap 13 (5-15); BUN/Creatinine Ratio 12.2 (10.0-20.0); Carbon Dioxide 24 mmol/L (20-31); Chloride 104 mmol/L (98-107); Sodium 141 mmol/L (136-145); Total Protein 6.2 g/dL (5.7-8.2)
[2024-12-13 03:51] LABS: Alanine Aminotransferase 44 U/L (7-40); Albumin 2.7 g/dL (3.2-4.8); Bilirubin, Total 4.0 mg/dL (0.2-1.0); Blood Urea Nitrogen 6 mg/dL (9-23); Calcium 7.0 mg/dL (8.7-10.4); Glucose 72 mg/dL (74-106); Potassium 2.8 mmol/L (3.5-5.1)
[2024-12-13 04:00] VITALS: BP 145/87; PULSE 90; RESP 14; O2SAT 94
[2024-12-13] MEDS: POTASSIUM CHL 20 Meq TABLET PO ONE (04:30)
[2024-12-13 04:58] LABS: Hematocrit 30.0 % (36.0-46.0); Hemoglobin 10.2 g/dL (12.2-16.2); Mean Corpuscular Hemoglobin 29.6 pg (28.0-32.0); Mean Corpuscular Volume 87.4 fL (80.0-100.0); Nucleated Red Blood Cells % 0.1 %
[2024-12-13] MEDS ORDERED: POTASSIUM CHLORIDE 40 MEQ in SOD CHL 0.45% 1,000 ML IV SCH ×2 (05:30→06:15)
[2024-12-13] MEDS ORDERED: SOD CHL 0.9%/ KCL 40MEQ 1,000 ML IV SCH (06:15)
[2024-12-13] MEDS: POTASSIUM CHL 20MEQ/100ML 100 ML IV SCH (06:21)
[2024-12-13] MEDS: GABAPENTIN 300 MG CAP PO SCH (06:22)
[2024-12-13 07:26] LABS: INR 1.6 (0.9-1.15); Partial Thromboplastin Time 35.0 SEC (24.5-34.5); Prothrombin Time 16.2 sec (9.3-11.8)
[2024-12-13 09:40] LABS: Urine Protein, UAD Negative (Negative)
[2024-12-13 10:28] LABS: Chloride 102 mmol/L (98-107); Potassium 4.1 mmol/L (3.5-5.1); Sodium 137 mmol/L (136-145)
[2024-12-13 10:29] LABS: Anion Gap 13 (5-15); Carbon Dioxide 22 mmol/L (20-31)
[2024-12-13 10:34] LABS: Glucose 74 mg/dL (74-106)
[2024-12-13 10:35] LABS: BUN/Creatinine Ratio 10.3 (10.0-20.0)
[2024-12-13] MEDS: POTASSIUM CHL 20MEQ/100ML 100 ML IV ONE (10:35)
[2024-12-13] MEDS: THIAMINE HCL 100 MG TAB PO SCH (10:42)
[2024-12-13] MEDS: SERTRALINE HCL 50 MG TAB PO SCH (10:42)
[2024-12-13 10:43] LABS: Blood Urea Nitrogen 6 mg/dL (9-23); Calcium 7.3 mg/dL (8.7-10.4)
[2024-12-13] MEDS: SUCRALFATE 1 GM TAB PO SCH (10:43)
[2024-12-13] MEDS: PANTOPRAZOLE 40 MG TAB PO SCH (10:43)
[2024-12-13] MEDS: SPIRONOLACTONE 25 MG TAB PO SCH (10:44)
[2024-12-13] MEDS: FOLIC ACID 1 MG TAB PO SCH (10:44)
[2024-12-13] MEDS: levETIRAcetam 500 MG TAB PO SCH (10:45)
[2024-12-13 10:46] LABS: COVID19 ANTIGEN SOFIA FIA NEGATIVE (NEGATIVE)
--- NOTE | 2024-12-13 12:32 | DVHPN2 ---
Reviewed: Care Plan, H&P, Labs, Medications, Previous Orders, Radiology Changes from previous H/P or p: No Changes Eyes: No Pain, No Vision change, No Conjunctivae inflammation, No Eyelid inflammation, No Other, No Redness ENT: No Ear pain, No Ear discharge, No Nose pain, No Nose discharge, No Nose congestion, No Mouth pain, No Mouth swelling, No Throat pain, No Throat swelling, No Other Cardiovascular: No Chest Pain, No Palpitations, No Orthopnea, No Paroxysmal Noc. Dyspnea, No Edema, No Lt Headedness, No Other Respiratory: No Cough, No Dry, No Shortness of breath, No SOB with excertion, No Wheezing, No Hemoptysis, No Pleuritic Pain, No Sputum, No Other Gastrointestinal: No Nausea, No Vomiting, No Abdominal Pain, No Diarrhea, No Constipation, No Melena, No Hematochezia, No Other Genitourinary: No Dysuria, No Frequency, No Incontinence, No Hematuria, No Retention, No Other Musculoskeletal: No other, No neck pain, No shoulder pain, No arm pain, No back pain, No hand pain, No leg pain, No foot pain Skin: No Rash, No Lesions, No Jaundice, No Bruising, No Other Objective Vitals Vital Signs Date Time Temp Pulse Resp B/P (MAP) Pulse Ox O2 Delivery O2 Flow Rate FiO2 12/13/24 12:00 77 12/13/24 10:00 19 150/90 (110) 91 12/13/24 08:00 Room Air* 0 21 12/13/24 08:00 98.0 98.0 Medications Current Medications Medications Dose Ordered Sig/Neto Route Start Time Stop Time Status Last Admin Dose Admin Sodium Chloride 1,000 ml @ 100 mls/hr Q10H IV 12/12/24 23:30 Thiamine HCl 100 mg DAILY PO 12/13/24 10:00 12/13/24 10:42 100 MG Folic Acid 1 mg DAILY PO 12/13/24 10:00 12/13/24 10:44 1 MG Chlordiazepoxide HCl 50 mg Q8H PO 12/12/24 23:30 12/13/24 15:31 12/13/24 09:03 50 MG Chlordiazepoxide HCl 50 mg Q12HR PO 12/13/24 10:00 12/13/24 22:01 12/13/24 10:45 50 MG Chlordiazepoxide HCl 25 mg Q12HR PO 12/14/24 10:00 12/14/24 22:01 Chlordiazepoxide HCl 25 mg QAM PO 12/15/24 07:00 12/15/24 07:01 Levetiracetam 1,000 mg BID PO 12/13/24 10:00 12/13/24 10:45 1,000 MG Pantoprazole Sodium 40 mg DAILY PO 12/13/24 10:00 12/13/24 10:43 40 MG Rifaximin 550 mg BID PO 12/13/24 10:00 12/13/24 10:43 550 MG Sertraline HCl 25 mg DAILY PO 12/13/24 10:00 12/13/24 10:42 25 MG Spironolactone 25 mg DAILY PO 12/13/24 10:00 12/13/24 10:44 25 MG Sucralfate 1 gm BID PO 12/13/24 10:00 12/13/24 10:43 1 GM Gabapentin 600 mg TID PO 12/13/24 06:00 12/13/24 06:22 600 MG Potassium Chloride/Sodium Chloride 1,000 ml @ 50 mls/hr Q20H IV 12/13/24 06:15 Cancel Potassium Chloride 40 meq/ Sodium Chloride 1,020 ml @ 50 mls/hr [id number] IV 12/13/24 06:15 Cancel Laboratory Results Laboratory Tests 12/13/24 03:00 12/13/24 10:09 Chemistry Test 12/13/24 03:00 12/13/24 10:09 Albumin 2.7 g/dL (3.2-4.8) L Calcium Level 7.0 mg/dL (8.7-10.4) L 7.3 mg/dL (8.7-10.4) L Magnesium Level 1.0 mg/dL (1.6-2.6) L Total Protein 6.2 g/dL (5.7-8.2) Coagulation Test 12/13/24 03:00 Prothrombin Time 16.2 sec (9.3-11.8) H Prothrombin Time INR 1.60 (0.9-1.15) H Activated Partial Thromboplast Time 35.0 SEC (24.5-34.5) H Lipid panel Test 12/12/24 23:35 Lipase 43 U/L (12-53) LFT Test 12/13/24 03:00 Alanine Aminotransferase (ALT) 44 U/L (7-40) H Alkaline Phosphatase 109 U/L (46-116) Aspartate Amino Transferase (AST) 185 U/L (13-40) H Total Bilirubin 4.0 mg/dL (0.2-1.0) H Urinalysis Test 12/12/24 08:14 12/13/24 09:05 Urine Test Negative (Negative) Urine Color Yellow (Yellow) Urine Clarity Turbid (Clear) H Urine pH 7.5 (5.0-9.0) Urine Specific [place] 1.019 (1.001-1.035) Urine Protein Negative (Negative) Urine Ketones 1+ (Negative) H Urine Blood Negative /uL (Negative) Urine Nitrite Negative (Negative) Urine Bilirubin Negative (Negative) Urine Urobilinogen 12 mg/dL (Negative) H Urine Leukocyte Esterase Negative /uL (Negative) Urine RBC 1 /hpf (0 - 4) Urine Microscopic WBC 1 /HPF (0-5) Urine Squamous Epithelial Cells Few /hpf (<5) Urine Bacteria Few /hpf (None Seen) H Urine Mucus Few (None Seen) Urine Glucose Normal mg/dL (Normal) Labs and/or images reviewed: Labs reviewed by me, Image(s) reviewed by me Assessment/Plan Assessment/Plan Acute Alcohol intoxication Acute Alcohol withdrawal seizures seizures: Consult for Dr. Capone Alcoholic hepatitis Liver cirrhosis Elevated bilirubin Lactic acidosis likely due to underlying liver disease Hypokalemia Metabolic acidosis likely due to lactic acidosis Severe dehydration Thrombocytopenia likely due to underlying liver cirrhosis Depression Homelessness Marijuana abuse Chest x-ray negative CT head negative Time spent 70 minutes Advanced care planning time 20 minutes Patient is full code Plan discussed with: Patient Date of Service: Dec 13, 2024 Billing Provider: LALITA SÁNCHEZ MD Common Visit Codes: [id number] CARE 30-74 MIN LALITA SÁNCHEZ MD Dec 13, 2024 12:32
[2024-12-13] MEDS: SODIUM CHLORIDE 0.9% 1,000 ML IV SCH (12:57)
[2024-12-13] MEDS ORDERED: SODIUM CHLORIDE 0.9% 1,000 ML IV SCH ×2 (13:00)
[2024-12-13 17:55] VITALS: PULSE 89; RESP 20
[2024-12-13 18:00] VITALS: BP 142/96; PULSE 89; RESP 18; TEMP 98.2; O2SAT 95
[2024-12-13 21:00] VITALS: BP 138/94; PULSE 95; RESP 18; TEMP 99; O2SAT 100
[2024-12-14] MEDS ORDERED: LORazepam 2MG/ML-1ML VIAL IV PRN (00:30)
[2024-12-14 01:00] VITALS: BP 145/91; PULSE 90; RESP 18; TEMP 98.4; O2SAT 97
[2024-12-14 05:00] VITALS: BP 133/87; PULSE 85; RESP 18; TEMP 98.9; O2SAT 97
[2024-12-14 08:00] VITALS: PULSE 86; RESP 18; O2SAT 99
[2024-12-14 09:00] VITALS: BP 159/113; PULSE 122; RESP 22; TEMP 97.6; O2SAT 99
[2024-12-14 10:28] LABS: Hepatitis B Surface Antigen Negative (Negative); Hepatitis C Antibody Negative (Negative)
--- NOTE | 2024-12-14 12:07 | DVHPN2 ---
Reviewed: Care Plan, H&P, Labs, Medications, Previous Orders, Radiology Changes from previous H/P or p: No Changes Eyes: No Pain, No Vision change, No Conjunctivae inflammation, No Eyelid inflammation, No Other, No Redness ENT: No Ear pain, No Ear discharge, No Nose pain, No Nose discharge, No Nose congestion, No Mouth pain, No Mouth swelling, No Throat pain, No Throat swelling, No Other Cardiovascular: No Chest Pain, No Palpitations, No Orthopnea, No Paroxysmal Noc. Dyspnea, No Edema, No Lt Headedness, No Other Respiratory: No Cough, No Dry, No Shortness of breath, No SOB with excertion, No Wheezing, No Hemoptysis, No Pleuritic Pain, No Sputum, No Other Gastrointestinal: No Nausea, No Vomiting, No Abdominal Pain, No Diarrhea, No Constipation, No Melena, No Hematochezia, No Other Genitourinary: No Dysuria, No Frequency, No Incontinence, No Hematuria, No Retention, No Other Musculoskeletal: No other, No neck pain, No shoulder pain, No arm pain, No back pain, No hand pain, No leg pain, No foot pain Skin: No Rash, No Lesions, No Jaundice, No Bruising, No Other Objective Vitals Vital Signs Date Time Temp Pulse Resp B/P (MAP) Pulse Ox O2 Delivery O2 Flow Rate FiO2 12/14/24 09:00 97.6 122 22 159/113 (128) 99 97.6 12/14/24 08:00 Room Air* 0 21 Intake/Output Intake and Output 12/14/24 07:00 Intake Total 1120 ml Balance 1120 ml Intake Oral 250 ml IV Total 870 ml # Voids 1 Medications Current Medications Medications Dose Ordered Sig/Neto Route Start Time Stop Time Status Last Admin Dose Admin Thiamine HCl 100 mg DAILY PO 12/13/24 10:00 12/14/24 09:51 100 MG Folic Acid 1 mg DAILY PO 12/13/24 10:00 12/14/24 09:51 1 MG Chlordiazepoxide HCl 25 mg Q12HR PO 12/14/24 10:00 12/14/24 22:01 12/14/24 09:50 25 MG Chlordiazepoxide HCl 25 mg QAM PO 12/15/24 07:00 12/15/24 07:01 Levetiracetam 1,000 mg BID PO 12/13/24 10:00 12/14/24 09:50 1,000 MG Pantoprazole Sodium 40 mg DAILY PO 12/13/24 10:00 12/14/24 09:50 40 MG Rifaximin 550 mg BID PO 12/13/24 10:00 12/14/24 09:50 550 MG Sertraline HCl 25 mg DAILY PO 12/13/24 10:00 12/14/24 09:51 25 MG Spironolactone 25 mg DAILY PO 12/13/24 10:00 12/14/24 09:51 25 MG Sucralfate 1 gm BID PO 12/13/24 10:00 12/14/24 09:50 1 GM Gabapentin 600 mg TID PO 12/13/24 06:00 12/14/24 05:46 600 MG Potassium Chloride/Sodium Chloride 1,000 ml @ 50 mls/hr Q20H IV 12/13/24 06:15 Cancel Potassium Chloride 40 meq/ Sodium Chloride 1,020 ml @ 50 mls/hr [id number] IV 12/13/24 06:15 Cancel Sodium Chloride 1,000 ml @ 150 mls/hr [id number] IV 12/13/24 12:30 12/14/24 09:50 150 MLS/HR Lorazepam 1 mg Q5MINP PRN IV 12/14/24 00:30 Laboratory Results Laboratory Tests 12/13/24 03:00 12/13/24 10:09 Urinalysis Test 12/12/24 08:14 12/13/24 09:05 Urine Test Negative (Negative) Urine Color Yellow (Yellow) Urine Clarity Turbid (Clear) H Urine pH 7.5 (5.0-9.0) Urine Specific [place] 1.019 (1.001-1.035) Urine Protein Negative (Negative) Urine Ketones 1+ (Negative) H Urine Blood Negative /uL (Negative) Urine Nitrite Negative (Negative) Urine Bilirubin Negative (Negative) Urine Urobilinogen 12 mg/dL (Negative) H Urine Leukocyte Esterase Negative /uL (Negative) Urine RBC 1 /hpf (0 - 4) Urine Microscopic WBC 1 /HPF (0-5) Urine Squamous Epithelial Cells Few /hpf (<5) Urine Bacteria Few /hpf (None Seen) H Urine Mucus Few (None Seen) Urine Glucose Normal mg/dL (Normal) Microbiology Microbiology Date/Time Source Procedure Growth Status 12/12/24 22:52 Blood Blood Culture - Preliminary NO GROWTH AFTER 24 HOURS OF INCUBATION. Resulted Labs and/or images reviewed: Labs reviewed by me, Image(s) reviewed by me Assessment/Plan Assessment/Plan Acute Alcohol intoxication Acute Alcohol withdrawal seizures seizures: Consult for Dr. Capone Alcoholic hepatitis Liver cirrhosis Elevated bilirubin Lactic acidosis likely due to underlying liver disease Hypokalemia Metabolic acidosis likely due to lactic acidosis Severe dehydration Thrombocytopenia likely due to underlying liver cirrhosis Depression Homelessness Marijuana abuse Chest x-ray negative CT head negative Time spent 50 minutes Advanced care planning time 20 minutes Patient is full code Plan discussed with: Patient, Other (RN) My Orders Orders - LALITA SÁNCHEZ MD Procedure Category Date Status Time Sodium Chloride 0.9% PHA 12/13/24 In Process 12:30 Regular Diet DIET 12/13/24 Transmitted Lunch Date of Service: Dec 14, 2024 Billing Provider: LALITA SÁNCHEZ MD Common Visit Codes: [id number] INP/OBS CARE(HIGH) LALITA SÁNCHEZ MD Dec 14, 2024 12:07
[2024-12-14 17:00] VITALS: BP 140/72; PULSE 69; RESP 16; TEMP 98.1; O2SAT 98
[2024-12-14 21:00] VITALS: BP 120/72; PULSE 95; RESP 17; TEMP 98.6; O2SAT 94
[2024-12-15] VITALS (8 sets, daily range): BP systolic 126–143; BP diastolic 77–90; PULSE 78–94; RESP 12–20; TEMP 98–98.6; O2SAT 0–99
--- NOTE | 2024-12-15 11:47 | DVHPN2 ---
Reviewed: Care Plan, H&P, Labs, Medications, Previous Orders, Radiology Changes from previous H/P or p: No Changes Eyes: No Pain, No Vision change, No Conjunctivae inflammation, No Eyelid inflammation, No Other, No Redness ENT: No Ear pain, No Ear discharge, No Nose pain, No Nose discharge, No Nose congestion, No Mouth pain, No Mouth swelling, No Throat pain, No Throat swelling, No Other Cardiovascular: No Chest Pain, No Palpitations, No Orthopnea, No Paroxysmal Noc. Dyspnea, No Edema, No Lt Headedness, No Other Respiratory: No Cough, No Dry, No Shortness of breath, No SOB with excertion, No Wheezing, No Hemoptysis, No Pleuritic Pain, No Sputum, No Other Gastrointestinal: No Nausea, No Vomiting, No Abdominal Pain, No Diarrhea, No Constipation, No Melena, No Hematochezia, No Other Genitourinary: No Dysuria, No Frequency, No Incontinence, No Hematuria, No Retention, No Other Musculoskeletal: No other, No neck pain, No shoulder pain, No arm pain, No back pain, No hand pain, No leg pain, No foot pain Skin: No Rash, No Lesions, No Jaundice, No Bruising, No Other Objective Vitals Vital Signs Date Time Temp Pulse Resp B/P (MAP) Pulse Ox O2 Delivery O2 Flow Rate FiO2 12/15/24 08:30 98.1 82 17 139/85 (103) 95 98.1 12/15/24 08:00 Room Air* 0 21 Intake/Output Intake and Output 12/15/24 07:00 Intake Total 2400 ml Balance 2400 ml Intake Oral 1450 ml IV Total 950 ml # Voids 5 # Bowel Movements 1 Medications Current Medications Medications Dose Ordered Sig/Neto Route Start Time Stop Time Status Last Admin Dose Admin Thiamine HCl 100 mg DAILY PO 12/13/24 10:00 12/15/24 09:06 100 MG Folic Acid 1 mg DAILY PO 12/13/24 10:00 12/15/24 09:07 1 MG Levetiracetam 1,000 mg BID PO 12/13/24 10:00 12/15/24 09:07 1,000 MG Pantoprazole Sodium 40 mg DAILY PO 12/13/24 10:00 12/15/24 09:06 40 MG Rifaximin 550 mg BID PO 12/13/24 10:00 12/15/24 09:06 550 MG Sertraline HCl 25 mg DAILY PO 12/13/24 10:00 12/15/24 09:07 25 MG Spironolactone 25 mg DAILY PO 12/13/24 10:00 12/15/24 09:06 25 MG Sucralfate 1 gm BID PO 12/13/24 10:00 12/15/24 09:07 1 GM Gabapentin 600 mg TID PO 12/13/24 06:00 12/15/24 05:36 600 MG Potassium Chloride/Sodium Chloride 1,000 ml @ 50 mls/hr Q20H IV 12/13/24 06:15 Cancel Potassium Chloride 40 meq/ Sodium Chloride 1,020 ml @ 50 mls/hr [id number] IV 12/13/24 06:15 Cancel Sodium Chloride 1,000 ml @ 150 mls/hr Q6H40M IV 12/13/24 12:30 12/15/24 09:08 150 MLS/HR Lorazepam 1 mg Q5MINP PRN IV 12/14/24 00:30 Laboratory Results Laboratory Tests 12/13/24 03:00 12/13/24 10:09 Urinalysis Test 12/12/24 08:14 12/13/24 09:05 Urine Test Negative (Negative) Urine Color Yellow (Yellow) Urine Clarity Turbid (Clear) H Urine pH 7.5 (5.0-9.0) Urine Specific [place] 1.019 (1.001-1.035) Urine Protein Negative (Negative) Urine Ketones 1+ (Negative) H Urine Blood Negative /uL (Negative) Urine Nitrite Negative (Negative) Urine Bilirubin Negative (Negative) Urine Urobilinogen 12 mg/dL (Negative) H Urine Leukocyte Esterase Negative /uL (Negative) Urine RBC 1 /hpf (0 - 4) Urine Microscopic WBC 1 /HPF (0-5) Urine Squamous Epithelial Cells Few /hpf (<5) Urine Bacteria Few /hpf (None Seen) H Urine Mucus Few (None Seen) Urine Glucose Normal mg/dL (Normal) Microbiology Microbiology Date/Time Source Procedure Growth Status 12/12/24 22:52 Blood Blood Culture - Preliminary NO GROWTH AFTER 48 HOURS OF INCUBATION. Resulted Labs and/or images reviewed: Labs reviewed by me, Image(s) reviewed by me Assessment/Plan Assessment/Plan Acute Alcohol intoxication blood alcohol 349 Acute Alcohol withdrawal seizures : Consult for Dr. Capone Alcoholic hepatitis Liver cirrhosis consult for Dr. Fernando Jones Elevated bilirubin Lactic acidosis likely due to underlying liver disease Hypokalemia Metabolic acidosis likely due to lactic acidosis Severe dehydration Thrombocytopenia likely due to underlying liver cirrhosis Depression Homelessness Marijuana abuse Chest x-ray negative CT head negative Time spent 50 minutes Advanced care planning time 20 minutes Patient is full code BILLIE Lewis at bedside Plan discussed with: Patient Date of Service: Dec 15, 2024 Billing Provider: LALITA SÁNCHEZ MD Common Visit Codes: [id number] INP/OBS CARE(HIGH) LALITA SÁNCHEZ MD Dec 15, 2024 11:47
[2024-12-15] MEDS ORDERED: LORazepam 2MG/ML-1ML VIAL IV PRN (13:15)
--- NOTE | 2024-12-15 13:32 | DVHINCON2 ---
GI Consult Consult Note GI consult note Date of Consultation: 12/15/2024 Chief Complaint: Alcoholic cirrhosis Referring Physician: Dr. Mak Sánchez H&P: 44-year-old female with past medical history of liver cirrhosis, anxiety, depression presented to ER with witnessed seizure at a crisis center. Patient has history of alcohol withdrawal seizures in the past and neurology consult is pending. Patient had about 1 L of vodka to drink two days ago. And has a histo ry of heavy alcohol use. Having complains of left shoulder and left hip pain status post fall. Patient denies abdominal pain, nausea vomiting, diarrhea. DATE OF OPERATION: 05/15/23 PROCEDURE: Upper Endoscopy with biopsy. PREOPERATIVE INDICATION: The patient is a 42 -year-old female undergoing endoscopy for history of coffee-ground emesis nausea and vomiting POSTOPERATIVE DIAGNOSES: 1. 1 to 2 cm sliding-type hiatal hernia with slightly irregular squamocolumnar junction no significant esophagitis and no esophageal varices 2. Mild gastropathy involving the proximal body of the stomach 3. Mild gastroduodenitis otherwise normal examination up to the second and third part of the duodenum PROCEDURE PERFORMED BY: Lakesha Jones Past Medical History: Liver cirrhosis, anxiety, depression Past Surgical History: Denies Social History: Patient is homeless, patient drinks alcohol, drinks vodka approximately 1 L per day. Denied smoking or any other recreational drug use. Family History: Noncontributory Review of Systems: Constitutional: no fever, chill, weight loss HEENT: no eye pain, no hearing loss, no oral lesion, no scleral icterus Heart: no chest pain, no chest pressure Lung: no cough, no dyspnea with exertion Abdomen: see HPI Physical exam: General: NAD, AAOX3 Chest: lung salmon clear to auscultation Heart: RRR, no murmur Abdomen: non-distended, no tenderness to palpation, +BS Labs: Labs Test 12/15/24 09:04 12/13/24 10:09 12/13/24 09:20 12/13/24 09:05 Range/Units Plasma/Serum Blood Alcohol < 3.0 <10 mg/dL Sodium Level 137 136-145 mmol/L Potassium Level 4.1 3.5-5.1 mmol/L Chloride Level 102 98-107 mmol/L Carbon Dioxide Level 22 20-31 mmol/L Anion Gap 13 5-15 Blood Urea Nitrogen 6 L 9-23 mg/dL Creatinine 0.58 0.550-1.02 mg/dL Glomerular Filtration Rate Calc 113 >90 mL/min BUN/Creatinine Ratio 10.3 10.0-20.0 Serum Glucose 74 74-106 mg/dL Calcium Level 7.3 L 8.7-10.4 mg/dL Influenza Type A Antigen Negative Negative Influenza Type B Antigen Negative Negative SARS-CoV-2 Antigen (Rapid) Negative NEGATIVE Urine Color Yellow Yellow Urine Clarity Turbid H Clear Urine pH 7.5 5.0-9.0 Urine Specific [place] 1.019 1.001-1.035 Urine Protein Negative Negative Urine Ketones 1+ H Negative Urine Blood Negative Negative /uL Urine Nitrite Negative Negative Urine Bilirubin Negative Negative Urine Urobilinogen 12 H Negative mg/dL Urine Leukocyte Esterase Negative Negative /uL Urine RBC 1 0 - 4 /hpf Urine Microscopic WBC 1 0-5 /HPF Urine Squamous Epithelial Cells Few <5 /hpf Urine Bacteria Few H None Seen /hpf Urine Mucus Few None Seen Urine Glucose Normal Normal mg/dL Test 12/13/24 07:41 12/13/24 03:00 12/13/24 01:22 12/12/24 23:35 Range/Units Lactic Acid Level 1.8 0.4-2.0 mmol/L White Blood Count 4.2 #L 4.4-10.8 10^3/uL Red Blood Count 3.44 L 4.0-5.20 10^6/uL Hemoglobin 10.2 #L 12.2-16.2 g/dL Hematocrit 30.0 #L 36.0-46.0 % Mean Corpuscular Volume 87.4 80.0-100.0 fL Mean Corpuscular Hemoglobin 29.6 28.0-32.0 pg Mean Corpuscular Hemoglobin Concent 33.8 32.0-36.0 g/dL Red Cell Distribution Width 17.3 H 11.8-14.3 % Platelet Count 48 L 140-450 10^3/uL Mean Platelet Volume 8.9 6.9-10.8 fL Neutrophils (%) (Auto) 44.5 37.0-80.0 % Lymphocytes (%) (Auto) 40.1 10.0-50.0 % Monocytes (%) (Auto) 12.8 H 0.0-12.0 % Eosinophils (%) (Auto) 1.3 0.0-7.0 % Basophils (%) (Auto) 1.3 0.0-2.0 % Neutrophils # (Auto) 1.9 1.6-8.6 10 ^3/uL Lymphocytes # (Auto) 1.7 0.4-5.4 10 ^3/uL Monocytes # (Auto) 0.5 0-1.3 10 ^3/uL Eosinophils # (Auto) 0.1 0-0.8 10 ^3/uL Basophils # (Auto) 0.1 0-0.2 10 ^3/uL Nucleated Red Blood Cells 0.1 % Prothrombin Time 16.2 H 9.3-11.8 sec Prothrombin Time INR 1.60 H 0.9-1.15 Activated Partial Thromboplast Time 35.0 H 24.5-34.5 SEC Magnesium Level 1.0 L 1.6-2.6 mg/dL Total Bilirubin 4.0 H 0.2-1.0 mg/dL Aspartate Amino Transferase (AST) 185 H 13-40 U/L Alanine Aminotransferase (ALT) 44 H 7-40 U/L Alkaline Phosphatase 109 46-116 U/L Total Protein 6.2 5.7-8.2 g/dL Albumin 2.7 L 3.2-4.8 g/dL Ammonia < 10 L 11-32 umol/L Lipase 43 12-53 U/L Hepatitis A IgM Antibody Negative Hepatitis B Surface Antigen Negative Negative Hepatitis B Core IgM Antibody Negative Negative Hepatitis C Antibody Negative Negative Test 12/12/24 08:14 12/11/24 21:35 12/11/24 08:14 Range/Units Urine Test Negative Negative Levetiracetam Level <2.0 L 10.0-40.0 ug/mL Urine Opiates Screen Neg NEGATIVE Urine Fentanyl Screen Neg NEGATIVE Urine Barbiturates Screen Neg NEGATIVE Urine Phencyclidine Screen Neg NEGATIVE Urine Amphetamines Screen Neg NEGATIVE Urine Benzodiazepines Screen Neg NEGATIVE Urine Cocaine Screen Neg NEGATIVE Urine Cannabinoids Screen Pos NEGATIVE Microbiology Date/Time Source Procedure Growth Status 12/12/24 22:52 Blood Blood Culture - Preliminary NO GROWTH AFTER 48 HOURS OF INCUBATION. Resulted Imaging: CT abdomen pelvis IMPRESSION: 1. Coarsened hepatic echotexture, which can be seen in the setting of chronic liver disease. 2. Questionable hepatofugal portal venous flow. Assessment: Alcoholic hepatitis Liver cirrhosis Transaminitis History of gastro duodenitis Plan: Discussed with Dr. Jones Monitor for alcohol withdrawal symptom IV fluids Conservative management recommended at this time DC alcohol discussed extensively Discussed plan with patient and RN Thank you for this consult Date of Service: Dec 15, 2024 Billing Provider: MAR SÁNCHEZ Common Visit Codes: CONSULT ONLY Consultation Codes: [id number] CONSULT <60MIN MAR SÁNCHEZ Dec 15, 2024 13:32
--- NOTE | 2024-12-15 16:02 | BSKYNEURO ---
[facility] Note # Demographics Consult Type: General Neurology Patient Location: Inpatient First Name: POLLY Last Name: MARIELLA Date of : 1980 Age: 44 Gender: Female Facility: [facility] Time of Initial Page (): 12/15/2024 15:07 First Contact with Site (): 12/15/2024 15:07 # HPI History: 45 y/o w/cirrhosis, seizures, ETOH withdrawal seizures who presented with seizure. Had 1L of vodka day before seizure. She states she only has withdrawal seizures. She has not been taking keppra because she states she doesn't have seizures. # Exam Time of Exam (): 12/15/2024 15:56 Mental Status: - awake - alert and oriented x 3 Cranial Nerves: - normal Motor: - normal strength # Data Time Head CT personally read by me (): 12/15/2024 15:[address]: - no bleed - preliminarily reviewed by me, please refer to radiology read for official reading # Assessment Impression: - Seizure patient states that she only has seizures in setting of withdrawal and doesnt take her keppra at home. Keppra reportedly makes her anxiety worse. # Plan Thrombolytic/Intervention: NOT IV Thrombolysis or IA Intervention candidate Thrombolytic/Intraarterial Exclusion: - IV thrombolytic and IA intervention considered but not recommended as this patient's symptoms are not clinically consistent with an assumed diagnosis of stroke Imaging: (urgency: routine): -if she hasn't had a MRI in the past can get MRI brain with contrast to ensure no seizure nidus Diagnostic Test: - EEG Medication: -continue CIWA protocol for ETOH withdrawal -prescribing keppra won't be helpful as she wont take it. -would not start any seizure meds if MRI and/or EEG have been abnormal in past or now Other: - If patient has any neurological deterioration please call me back immediately - I have discussed my recommendations with the referring provider - seizure precautions Additional Recommendations: no driving Disposition: continue admission # Logistics Attestation of consult completion: The patient is located at: [facility]. Facility staff participated in the visit. I performed this telemedi cine visit from my offsite office utilizing interactive 2 way audio and visual telecommunication technology at the request of the onsite inpatient provider. Total time spent in telemedicine encounter: I spent 15 minutes reviewing clinical data and/or imaging, obtaining history, examining the patient, communicating with the onsite care team, and in preparation of this report. # Demographics First Name: POLLY Last Name: MARIELLA Facility: [facility] Yes KATE WEBBER MD Dec 15, 2024 16:02
[2024-12-16] VITALS (8 sets, daily range): BP systolic 125–135; BP diastolic 81–89; PULSE 80–84; RESP 14–19; TEMP 97.3–98.5; O2SAT 94–99
--- NOTE | 2024-12-16 10:34 | DVHPN2 ---
Reviewed: Care Plan, H&P, Labs, Medications, Previous Orders, Radiology Changes from previous H/P or p: No Changes Eyes: No Pain, No Vision change, No Conjunctivae inflammation, No Eyelid inflammation, No Other, No Redness ENT: No Ear pain, No Ear discharge, No Nose pain, No Nose discharge, No Nose congestion, No Mouth pain, No Mouth swelling, No Throat pain, No Throat swelling, No Other Cardiovascular: No Chest Pain, No Palpitations, No Orthopnea, No Paroxysmal Noc. Dyspnea, No Edema, No Lt Headedness, No Other Respiratory: No Cough, No Dry, No Shortness of breath, No SOB with excertion, No Wheezing, No Hemoptysis, No Pleuritic Pain, No Sputum, No Other Gastrointestinal: No Nausea, No Vomiting, No Abdominal Pain, No Diarrhea, No Constipation, No Melena, No Hematochezia, No Other Genitourinary: No Dysuria, No Frequency, No Incontinence, No Hematuria, No Retention, No Other Musculoskeletal: No other, No neck pain, No shoulder pain, No arm pain, No back pain, No hand pain, No leg pain, No foot pain Skin: No Rash, No Lesions, No Jaundice, No Bruising, No Other Objective Vitals Vital Signs Date Time Temp Pulse Resp B/P (MAP) Pulse Ox O2 Delivery O2 Flow Rate FiO2 12/16/24 08:30 98.4 84 19 135/85 (102) 97 98.4 12/15/24 20:00 Room Air* 0 21 Intake/Output Intake and Output 12/16/24 07:00 Intake Total 2570 ml Balance 2570 ml Intake Oral 1570 ml IV Total 1000 ml # Voids 6 Medications Current Medications Medications Dose Ordered Sig/Neto Route Start Time Stop Time Status Last Admin Dose Admin Thiamine HCl 100 mg DAILY PO 12/13/24 10:12/16/24 10:04 100 MG Folic Acid 1 mg DAILY PO 12/13/24 10:00 12/16/24 10:04 1 MG Levetiracetam 1,000 mg BID PO 12/13/24 10:00 12/16/24 10:04 1,000 MG Pantoprazole Sodium 40 mg DAILY PO 12/13/24 10:00 12/16/24 10:04 40 MG Rifaximin 550 mg BID PO 12/13/24 10:00 12/16/24 10:04 550 MG Sertraline HCl 25 mg DAILY PO 12/13/24 10:00 12/16/24 10:04 25 MG Spironolactone 25 mg DAILY PO 12/13/24 10:00 12/16/24 10:04 25 MG Sucralfate 1 gm BID PO 12/13/24 10:00 12/16/24 10:04 1 GM Gabapentin 600 mg TID PO 12/13/24 06:00 12/16/24 05:11 600 MG Potassium Chloride/Sodium Chloride 1,000 ml @ 50 mls/hr Q20H IV 12/13/24 06:15 Cancel Potassium Chloride 40 meq/ Sodium Chloride 1,020 ml @ 50 mls/hr [id number] IV 12/13/24 06:15 Cancel Sodium Chloride 1,000 ml @ 150 mls/hr Q6H40M IV 12/13/24 12:30 12/16/24 00:56 150 MLS/HR Lorazepam 1 mg Q5MINP PRN IV 12/14/24 00:30 Lorazepam 1 mg Q8HP PRN IV 12/15/24 13:15 Laboratory Results Laboratory Tests 12/13/24 03:00 12/13/24 10:09 Urinalysis Test 12/12/24 08:14 12/13/24 09:05 Urine Test Negative (Negative) Urine Color Yellow (Yellow) Urine Clarity Turbid (Clear) H Urine pH 7.5 (5.0-9.0) Urine Specific [place] 1.019 (1.001-1.035) Urine Protein Negative (Negative) Urine Ketones 1+ (Negative) H Urine Blood Negative /uL (Negative) Urine Nitrite Negative (Negative) Urine Bilirubin Negative (Negative) Urine Urobilinogen 12 mg/dL (Negative) H Urine Leukocyte Esterase Negative /uL (Negative) Urine RBC 1 /hpf (0 - 4) Urine Microscopic WBC 1 /HPF (0-5) Urine Squamous Epithelial Cells Few /hpf (<5) Urine Bacteria Few /hpf (None Seen) H Urine Mucus Few (None Seen) Urine Glucose Normal mg/dL (Normal) Microbiology Microbiology Date/Time Source Procedure Growth Status 12/12/24 22:52 Blood Blood Culture - Preliminary NO GROWTH AFTER 72 HOURS OF INCUBATION. Resulted Labs and/or images reviewed: Labs reviewed by me, Image(s) reviewed by me Assessment/Plan Assessment/Plan Acute Alcohol intoxication blood alcohol 349 Acute Alcohol withdrawal seizures : Consult for tele neurologist Dr. Barrios appreciated, ordered MRI brain without contrast Alcoholic hepatitis Liver cirrhosis consult for Dr. Fernando Jones Elevated bilirubin Lactic acidosis likely due to underlying liver disease Hypokalemia Metabolic acidosis likely due to lactic acidosis Severe dehydration Thrombocytopenia likely due to underlying liver cirrhosis Depression Homelessness Marijuana abuse Chest x-ray negative CT head negative Time spent 50 minutes Advanced care planning time 20 minutes Patient is full code BILLIE Lewis at bedside Plan discussed with: Patient My Orders Orders - LALITA SÁNCHEZ MD Procedure Category Date Status Time * Neurology Consult CONS 12/15/24 Transmitted 11:41 * [facility] [employer] Tax CONS 12/15/24 Transmitted 11:45 Pt Request For Service PT 12/15/24 Logged 11:47 Lorazepam 2mg/Ml Inj PHA 12/15/24 In Process (Ativan Inj) 13:15 Date of Service: Dec 16, 2024 Billing Provider: LALITA SÁNCHEZ MD Common Visit Codes: [id number] INP/OBS CARE(HIGH) LALITA SÁNCHEZ MD Dec 16, 2024 10:34
--- NOTE | 2024-12-16 12:38 | DVH ---
PROCEDURE: MRI BRAIN HEAD WO CONTRAST Indication: seizures COMPARISON: None TECHNIQUE: Multiplanar multisequence images of the brain are obtained. FINDINGS: There is no abnormal diffusion restriction. Mild periventricular and subcortical white matter T2/FLAI R hyperintense changes. There is no intracranial hemorrhage. No extra-axial fluid collection, mass ef fect or midline shift. The ventricles are midline and normal in size. The cisterns are patent. Normal intracranial flow voids are preserved. No abnormal susceptibility signal. No hippocampal atrophy. No heterotopia is seen. No encephalocele. Paranasal sinuses are well pneumatized. Tiny bilateral mastoid effusions The visualized orbits are un remarkable. IMPRESSION: No acute cerebrovascular ischemia. Mild chronic microvascular ischemic changes.
--- NOTE | 2024-12-16 16:44 | DVHPN2 ---
Progress Note Date Seen: Dec 16, 2024 Resident Creating Document: PAULA HAGER RESIDENT Medical Necessity Reason Pt with a Central, PICC or Fol: No Subjective Review of Systems Patient seen and examined at bedside Denies any abdominal pain Notes having nausea, denies any vomiting Last bowel movement 4 days ago, passing gas Objective vital signs Vital Sign Date Time Temp Pulse Resp B/P (MAP) Pulse Ox O2 Delivery O2 Flow Rate FiO2 12/16/24 13:00 98.2 80 19 132/86 (101) 98 98.2 12/16/24 08:15 Room Air* 0 21 Total Intake and Output 12/15/24 12/15/24 12/16/24 15:00 23:00 07:00 Intake Total 680 ml 1890 ml Balance 680 ml 1890 ml medications Current Medications Medications Dose Ordered Sig/Neto Route Start Time Stop Time Status Last Admin Dose Admin Thiamine HCl 100 mg DAILY PO 12/13/24 10:00 12/16/24 10:04 100 MG Folic Acid 1 mg DAILY PO 12/13/24 10:00 12/16/24 10:04 1 MG Pantoprazole Sodium 40 mg DAILY PO 12/13/24 10:00 12/16/24 10:04 40 MG Rifaximin 550 mg BID PO 12/13/24 10:00 12/16/24 10:04 550 MG Sertraline HCl 25 mg DAILY PO 12/13/24 10:00 12/16/24 10:04 25 MG Spironolactone 25 mg DAILY PO 12/13/24 10:00 12/16/24 10:04 25 MG Sucralfate 1 gm BID PO 12/13/24 10:00 12/16/24 10:04 1 GM Gabapentin 600 mg TID PO 12/13/24 06:00 12/16/24 15:59 600 MG Potassium Chloride/Sodium Chloride 1,000 ml @ 50 mls/hr Q20H IV 12/13/24 06:15 Cancel Potassium Chloride 40 meq/ Sodium Chloride 1,020 ml @ 50 mls/hr [id number] IV 12/13/24 06:15 Cancel Sodium Chloride 1,000 ml @ 150 mls/hr Q6H40M IV 12/13/24 12:30 12/16/24 00:56 150 MLS/HR Lorazepam 1 mg Q5MINP PRN IV 12/14/24 00:30 Lorazepam 1 mg Q8HP PRN IV 12/15/24 13:15 Tramadol HCl 50 mg Q6HP PRN PO 12/16/24 10:45 Examination General: NAD, AAOX3 Chest: lung salmon clear to auscultation Heart: RRR, no murmur Abdomen: non-distended, no tenderness to palpation, +BS laboratory and microbiology Laboratory Tests 12/13/24 10:09 12/13/24 03:00 Test 12/13/24 10:09 Range/Units Serum Glucose 74 74-106 mg/dL Microbiology Date/Time Source Procedure Growth Status 12/12/24 22:52 Blood Blood Culture - Preliminary NO GROWTH AFTER 72 HOURS OF INCUBATION. Resulted Labs and/or images reviewed: Labs reviewed by me, Image(s) reviewed by me Problem List/Assessment/Plan Problem List/Assessment/Plan Alcoholic hepatitis Alcoholic liver cirrhosis Alcohol use disorder History of gastroduodenitis Plan: Continue conservative management Alcohol withdrawal management as per CIWA protocol IV hydration Counseled patient on the importance of abstaining from alcohol usage IV Protonix 40 mg daily Carafate 1 g b.i.d. IV Zofran Q 8 hours as needed for nausea Thank you so much for the opportunity to consult on your patient. GI team will follow the patient. In case of any questions or concerns please feel free to reach out. Plan discussed with Dr. Jones Plan discussed with: Patient, Other (RN) PAULA HAGER RESIDENT Dec 16, 2024 16:44
[2024-12-16] MEDS: PANTOPRAZOLE 40 MG/10 ML VIAL INJ IV SCH (22:00)
[2024-12-16] MEDS: ONDANSETRON HCL 4 MG/2 ML VIAL IV PRN (23:22)
[2024-12-17 01:06] VITALS: BP 134/87; PULSE 88; RESP 18; TEMP 97.9; O2SAT 97
[2024-12-17 05:00] VITALS: BP 144/96; PULSE 85; RESP 19; TEMP 98.2; O2SAT 98
[2024-12-17 08:00] VITALS: PULSE 77; RESP 18; O2SAT 95
[2024-12-17 09:00] VITALS: BP 138/89; PULSE 84; RESP 16; TEMP 97.9; O2SAT 97
--- NOTE | 2024-12-17 09:47 | DVHPN2 ---
Reviewed: Care Plan, H&P, Labs, Medications, Previous Orders, Radiology Changes from previous H/P or p: No Changes Eyes: No Pain, No Vision change, No Conjunctivae inflammation, No Eyelid inflammation, No Other, No Redness ENT: No Ear pain, No Ear discharge, No Nose pain, No Nose discharge, No Nose congestion, No Mouth pain, No Mouth swelling, No Throat pain, No Throat swelling, No Other Cardiovascular: No Chest Pain, No Palpitations, No Orthopnea, No Paroxysmal Noc. Dyspnea, No Edema, No Lt Headedness, No Other Respiratory: No Cough, No Dry, No Shortness of breath, No SOB with excertion, No Wheezing, No Hemoptysis, No Pleuritic Pain, No Sputum, No Other Gastrointestinal: No Nausea, No Vomiting, No Abdominal Pain, No Diarrhea, No Constipation, No Melena, No Hematochezia, No Other Genitourinary: No Dysuria, No Frequency, No Incontinence, No Hematuria, No Retention, No Other Musculoskeletal: No other, No neck pain, No shoulder pain, No arm pain, No back pain, No hand pain, No leg pain, No foot pain Skin: No Rash, No Lesions, No Jaundice, No Bruising, No Other Objective Vitals Vital Signs Date Time Temp Pulse Resp B/P (MAP) Pulse Ox O2 Delivery O2 Flow Rate FiO2 12/17/24 05:00 98.2 85 19 144/96 (112) 98 98.2 12/16/24 20:00 Room Air* 0 21 Intake/Output Intake and Output 12/17/24 07:00 Intake Total 2090 ml Balance 2090 ml Intake Oral 1090 ml IV Total 1000 ml # Voids 10 # Bowel Movements 1 Medications Current Medications Medications Dose Ordered Sig/Neto Route Start Time Stop Time Status Last Admin Dose Admin Thiamine HCl 100 mg DAILY PO 12/13/24 10:12/16/24 10:04 100 MG Folic Acid 1 mg DAILY PO 12/13/24 10:00 12/16/24 10:04 1 MG Rifaximin 550 mg BID PO 12/13/24 10:00 12/16/24 10:04 550 MG Sertraline HCl 25 mg DAILY PO 12/13/24 10:00 12/16/24 10:04 25 MG Spironolactone 25 mg DAILY PO 12/13/24 10:00 12/16/24 10:04 25 MG Sucralfate 1 gm BID PO 12/13/24 10:00 12/16/24 10:04 1 GM Gabapentin 600 mg TID PO 12/13/24 06:00 12/17/24 05:28 600 MG Potassium Chloride/Sodium Chloride 1,000 ml @ 50 mls/hr Q20H IV 12/13/24 06:15 Cancel Potassium Chloride 40 meq/ Sodium Chloride 1,020 ml @ 50 mls/hr [id number] IV 12/13/24 06:15 Cancel Sodium Chloride 1,000 ml @ 150 mls/hr Q6H40M IV 12/13/24 12:30 12/16/24 23:21 150 MLS/HR Lorazepam 1 mg Q5MINP PRN IV 12/14/24 00:30 Lorazepam 1 mg Q8HP PRN IV 12/15/24 13:15 Tramadol HCl 50 mg Q6HP PRN PO 12/16/24 10:45 12/16/24 20:44 50 MG Pantoprazole Sodium 40 mg BID IV 12/16/24 22:00 Ondansetron HCl 4 mg Q8HPRN PRN IV 12/16/24 16:45 12/16/24 23:22 4 MG Laboratory Results Laboratory Tests 12/13/24 03:00 12/13/24 10:09 Urinalysis Test 12/12/24 08:14 12/13/24 09:05 Urine Test Negative (Negative) Urine Color Yellow (Yellow) Urine Clarity Turbid (Clear) H Urine pH 7.5 (5.0-9.0) Urine Specific [place] 1.019 (1.001-1.035) Urine Protein Negative (Negative) Urine Ketones 1+ (Negative) H Urine Blood Negative /uL (Negative) Urine Nitrite Negative (Negative) Urine Bilirubin Negative (Negative) Urine Urobilinogen 12 mg/dL (Negative) H Urine Leukocyte Esterase Negative /uL (Negative) Urine RBC 1 /hpf (0 - 4) Urine Microscopic WBC 1 /HPF (0-5) Urine Squamous Epithelial Cells Few /hpf (<5) Urine Bacteria Few /hpf (None Seen) H Urine Mucus Few (None Seen) Urine Glucose Normal mg/dL (Normal) Microbiology Microbiology Date/Time Source Procedure Growth Status 12/12/24 22:52 Blood Blood Culture - Preliminary NO GROWTH AFTER 72 HOURS OF INCUBATION. Resulted Labs and/or images reviewed: Labs reviewed by me, Image(s) reviewed by me Assessment/Plan Assessment/Plan Acute Alcohol intoxication blood alcohol 349 now resolved Acute Alcohol withdrawal seizures : Consult for tele neurologist Dr. Barrios appreciated, MRI brain without contrast negative, tele neurologist advised no seizure medication as the patient did not like Keppra in the past Alcoholic hepatitis Liver cirrhosis consult for Dr. Fernando Jones Elevated bilirubin Lactic acidosis likely due to underlying liver disease Hypokalemia Metabolic acidosis likely due to lactic acidosis Severe dehydration Thrombocytopenia likely due to underlying liver cirrhosis Depression Marijuana abuse Chest x-ray negative CT head negative Time spent 50 minutes Advanced care planning time 20 minutes Patient is full code BILLIE Lewis at bedside Plan discussed with: Patient My Orders Orders - LALITA SÁNCHEZ MD Procedure Category Date Status Time Brain Head Wo Contrast MRI 12/16/24 Resulted 10:24 Tramadol Hcl (Ultram) PHA 12/16/24 In Process 10:45 Eeg Awake/Sleep/Act EEG 12/16/24 Transmitted 10:33 Date of Service: Dec 17, 2024 Billing Provider: LALITA SÁNCHEZ MD Common Visit Codes: [id number] INP/OBS CARE(HIGH) LALITA SÁNCHEZ MD Dec 17, 2024 09:47
--- NOTE | 2024-12-17 09:55 | DVHPN2 ---
Progress Note Date Seen: Dec 17, 2024 Resident Creating Document: PAULA HAGER RESIDENT Medical Necessity Reason Pt with a Central, PICC or Fol: No Subjective Review of Systems Patient seen and examined at bedside AO x3, however, somnolent and lethargic Denies any vomiting, continues to have nausea Denies any abdominal pain Objective vital signs Vital Sign Date Time Temp Pulse Resp B/P (MAP) Pulse Ox O2 Delivery O2 Flow Rate FiO2 12/17/24 05:00 98.2 85 19 144/96 (112) 98 98.2 12/16/24 20:00 Room Air* 0 21 Total Intake and Output 12/16/24 12/16/24 12/17/24 15:00 23:00 07:00 Intake Total 1740 ml 350 ml Balance 1740 ml 350 ml medications Current Medications Medications Dose Ordered Sig/Neto Route Start Time Stop Time Status Last Admin Dose Admin Thiamine HCl 100 mg DAILY PO 12/13/24 10:00 12/16/24 10:04 100 MG Folic Acid 1 mg DAILY PO 12/13/24 10:00 12/16/24 10:04 1 MG Rifaximin 550 mg BID PO 12/13/24 10:00 12/16/24 10:04 550 MG Sertraline HCl 25 mg DAILY PO 12/13/24 10:00 12/16/24 10:04 25 MG Spironolactone 25 mg DAILY PO 12/13/24 10:00 12/16/24 10:04 25 MG Sucralfate 1 gm BID PO 12/13/24 10:00 12/16/24 10:04 1 GM Gabapentin 600 mg TID PO 12/13/24 06:00 12/17/24 05:28 600 MG Potassium Chloride/Sodium Chloride 1,000 ml @ 50 mls/hr Q20H IV 12/13/24 06:15 Cancel Potassium Chloride 40 meq/ Sodium Chloride 1,020 ml @ 50 mls/hr [id number] IV 12/13/24 06:15 Cancel Sodium Chloride 1,000 ml @ 150 mls/hr Q6H40M IV 12/13/24 12:30 12/16/24 23:21 150 MLS/HR Lorazepam 1 mg Q5MINP PRN IV 12/14/24 00:30 Lorazepam 1 mg Q8HP PRN IV 12/15/24 13:15 Tramadol HCl 50 mg Q6HP PRN PO 12/16/24 10:45 12/16/24 20:44 50 MG Pantoprazole Sodium 40 mg BID IV 12/16/24 22:00 Ondansetron HCl 4 mg Q8HPRN PRN IV 12/16/24 16:45 12/16/24 23:22 4 MG Examination General: Somnolent, lethargic, no apparent distress, AAOX3 Chest: lung salmon clear to auscultation Heart: RRR, no murmur Abdomen: non-distended, no tenderness to palpation, +BS laboratory and microbiology Laboratory Tests 12/13/24 10:09 12/13/24 03:00 Test 12/13/24 10:09 Range/Units Serum Glucose 74 74-106 mg/dL Microbiology Date/Time Source Procedure Growth Status 12/12/24 22:52 Blood Blood Culture - Preliminary NO GROWTH AFTER 72 HOURS OF INCUBATION. Resulted Labs and/or images reviewed: Labs reviewed by me, Image(s) reviewed by me Problem List/Assessment/Plan Problem List/Assessment/Plan Alcoholic hepatitis Alcoholic liver cirrhosis Alcohol use disorder History of gastroduodenitis Plan: Continue conservative management Pending CBC and CMP from morning labs Alcohol withdrawal management as per [facility] protocol IV hydration Counseled patient on the importance of abstaining from alcohol usage IV Protonix 40 mg daily Carafate 1 g b.i.d. IV Zofran Q 8 hours as needed for nausea Thank you so much for the opportunity to consult on your patient. GI team will follow the patient. In case of any questions or concerns please feel free to reach out. Plan discussed with Dr. Jones Plan discussed with: Patient, Other (Mother, RN) My Orders My Orders Orders - PAULA HAGER RESIDENT Procedure Category Date Status Time Pantoprazole PHA 12/16/24 In Process (Protonix) 22:00 Ondansetron Hcl PHA 12/16/24 In Process (Zofran) 16:45 Complete Blood Count LAB 12/17/24 Logged 04:00 PAULA HAGER RESIDENT Dec 17, 2024 09:55
[2024-12-17] MEDS ORDERED: SUCR1TAB31 PO (09:58)
[2024-12-17] MEDS ORDERED: FOLI-119 PO (09:58)
[2024-12-17] MEDS ORDERED: THIA100T13 PO (09:58)
[2024-12-17] MEDS ORDERED: PANT40T PO (09:58)
[2024-12-17] MEDS ORDERED: TRAM-626 PO (09:58)
--- NOTE | 2024-12-17 10:03 | DVHDS2 ---
Discharge Summary Date of Admission Dec 12, 2024 at 23:18 Date of Discharge: Dec 17, 2024 Admitting Diagnosis Altered mental status seizures Wounds: None Labs/Diagnostic Data: Laboratory Results Test 12/15/24 09:04 12/13/24 10:09 12/13/24 09:20 12/13/24 09:05 Plasma/Serum Blood Alcohol < 3.0 mg/dL (<10) Sodium Level 137 mmol/L (136-145) Potassium Level 4.1 mmol/L (3.5-5.1) Chloride Level 102 mmol/L (98-107) Carbon Dioxide Level 22 mmol/L (20-31) Anion Gap 13 (5-15) Blood Urea Nitrogen 6 mg/dL (9-23) Creatinine 0.58 mg/dL (0.550-1.02) Glomerular Filtration Rate Calc 113 mL/min (>90) BUN/Creatinine Ratio 10.3 (10.0-20.0) Serum Glucose 74 mg/dL (74-106) Calcium Level 7.3 mg/dL (8.7-10.4) Influenza Type A Antigen Negative (Negative) Influenza Type B Antigen Negative (Negative) SARS-CoV-2 Antigen (Rapid) Negative (NEGATIVE) Urine Color Yellow (Yellow) Urine Clarity Turbid (Clear) Urine pH 7.5 (5.0-9.0) Urine Specific [place] 1.019 (1.001-1.035) Urine Protein Negative (Negative) Urine Ketones 1+ (Negative) Urine Blood Negative /uL (Negative) Urine Nitrite Negative (Negative) Urine Bilirubin Negative (Negative) Urine Urobilinogen 12 mg/dL (Negative) Urine Leukocyte Esterase Negative /uL (Negative) Urine RBC 1 /hpf (0 - 4) Urine Microscopic WBC 1 /HPF (0-5) Urine Squamous Epithelial Cells Few /hpf (<5) Urine Bacteria Few /hpf (None Seen) Urine Mucus Few (None Seen) Urine Glucose Normal mg/dL (Normal) Test 12/13/24 07:41 12/13/24 03:00 12/13/24 01:22 12/12/24 23:35 Lactic Acid Level 1.8 mmol/L (0.4-2.0) White Blood Count 4.2 10^3/uL (4.4-10.8) Red Blood Count 3.44 10^6/uL (4.0-5.20) Hemoglobin 10.2 g/dL (12.2-16.2) Hematocrit 30.0 % (36.0-46.0) Mean Corpuscular Volume 87.4 fL (80.0-100.0) Mean Corpuscular Hemoglobin 29.6 pg (28.0-32.0) Mean Corpuscular Hemoglobin Concent 33.8 g/dL (32.0-36.0) Red Cell Distribution Width 17.3 % (11.8-14.3) Platelet Count 48 10^3/uL (140-450) Mean Platelet Volume 8.9 fL (6.9-10.8) Neutrophils (%) (Auto) 44.5 % (37.0-80.0) Lymphocytes (%) (Auto) 40.1 % (10.0-50.0) Monocytes (%) (Auto) 12.8 % (0.0-12.0) Eosinophils (%) (Auto) 1.3 % (0.0-7.0) Basophils (%) (Auto) 1.3 % (0.0-2.0) Neutrophils # (Auto) 1.9 10 ^3/uL (1.6-8.6) Lymphocytes # (Auto) 1.7 10 ^3/uL (0.4-5.4) Monocytes # (Auto) 0.5 10 ^3/uL (0-1.3) Eosinophils # (Auto) 0.1 10 ^3/uL (0-0.8) Basophils # (Auto) 0.1 10 ^3/uL (0-0.2) Nucleated Red Blood Cells 0.1 % Prothrombin Time 16.2 sec (9.3-11.8) Prothrombin Time INR 1.60 (0.9-1.15) Activated Partial Thromboplast Time 35.0 SEC (24.5-34.5) Magnesium Level 1.0 mg/dL (1.6-2.6) Total Bilirubin 4.0 mg/dL (0.2-1.0) Aspartate Amino Transferase (AST) 185 U/L (13-40) Alanine Aminotransferase (ALT) 44 U/L (7-40) Alkaline Phosphatase 109 U/L (46-116) Total Protein 6.2 g/dL (5.7-8.2) Albumin 2.7 g/dL (3.2-4.8) Ammonia < 10 umol/L (11-32) Lipase 43 U/L (12-53) Hepatitis A IgM Antibody Negative Hepatitis B Surface Antigen Negative (Negative) Hepatitis B Core IgM Antibody Negative (Negative) Hepatitis C Antibody Negative (Negative) Test 12/12/24 08:14 12/11/24 21:35 12/11/24 08:14 Urine Test Negative (Negative) Levetiracetam Level <2.0 ug/mL (10.0-40.0) Urine Opiates Screen Neg (NEGATIVE) Urine Fentanyl Screen Neg (NEGATIVE) Urine Barbiturates Screen Neg (NEGATIVE) Urine Phencyclidine Screen Neg (NEGATIVE) Urine Amphetamines Screen Neg (NEGATIVE) Urine Benzodiazepines Screen Neg (NEGATIVE) Urine Cocaine Screen Neg (NEGATIVE) Urine Cannabinoids Screen Pos (NEGATIVE) Other Laboratory Tests 12/13/24 10:09 12/13/24 03:00 Brief Hx & Hospital Course: 44-year-old female with a history of chronic alcoholism cirrhosis of liver chronic thrombocytopenia depression chronic marijuana abuse chronic alcohol abuse came in for possible withdrawal from alcohol. Blood alcohol was 349 treated with the Keppra for the possible withdrawal seizures CT head was negative tele neurology consult by Dr. Barrios advised MRI brain which was negative advised no antiseizure medication as the patient did not like Keppra in the past seen by GI Dr. Fernando Jones for cirrhosis of liver. Treated with the pantoprazole and Carafate. Home medications Zofran Aldactone rifaximin continued also treated with a banana bag for the alcohol abuse. At the time of discharge patient is alert awake oriented x3 Discussed discharge plan with the patient in the presence of BILLIE Mccarthy and she agreed. Her mother is going to pick her up. Advised to quit using alcohol. General condition stable but poor at the time of discharge. Consults/Reason for consult Tele neurology Dr Barrios Operations or Procedures CT head MRI brain Condition at Discharge: Poor Final Diagnosis/Problems List Acute Alcohol intoxication blood alcohol 349 now resolved Acute Alcohol withdrawal seizures : Consult for tele neurologist Dr. Barrios appreciated, MRI brain without contrast negative, tele neurologist advised no seizure medication as the patient did not like Keppra in the past Alcoholic hepatitis Liver cirrhosis consult for Dr. Fernando Jones Elevated bilirubin Lactic acidosis likely due to underlying liver disease Hypokalemia Metabolic acidosis likely due to lactic acidosis Severe dehydration Thrombocytopenia likely due to underlying liver cirrhosis Depression Marijuana abuse Chest x-ray negative CT head negative Discharge Disposition: Home Discharge Instruct/Medications Diet: Regular Activity: Light activity Follow Up/Referral: Stop drinking alcohol Take medications as prescribed Follow up with your primary Dr in one Medications: Transmitted to pharmacy Scheduled Cholecalciferol (Vitamin D3), 5,000 UNIT PO [email or web address] Folic Acid (Folic Acid), 1 MG PO DAILY Furosemide (Lasix), 1 TAB PO DAILY Gabapentin (Gabapentin), 600 MG PO TID, (Reported) Levetiracetam (Levetiracetam), 1,000 MG PO BID Levetiracetam (Keppra Tablet), 1,000 MG PO BID Lorazepam (Ativan), 1 MG PO PRN, (Reported) Ondansetron (Zofran), 1 TAB PO Q6HR Pantoprazole Sodium Sesquihydr (Pantoprazole Sodium), 40 MG PO DAILY Pantoprazole Sodium Sesquihydr (Protonix), 40 MG PO DAILY Pantoprazole Sodium Sesquihydr (Pantoprazole Sodium), 40 MG PO BID Rifaximin (Xifaxan), 1 TAB PO BID, (Reported) Sertraline Hcl (Zoloft), 25 MG PO DAILY Spironolactone (Aldactone), 1 TAB PO DAILY Sucralfate (Carafate), 1 GM OR BID Sucralfate (Carafate), 1 GM PO QID Thiamine HCl (Thiamine Hydrochloride), 100 MG PO DAILY Scheduled PRN Tramadol HCl (Tramadol HCl), 50 MG PO QID PRN 39 (Time taken for discharge summary 39 minutes) Discharge Statement: "Patient was advised to return to the ER or call 911 if any headaches, dizziness, shortness of breath, chest pain, abdominal pain, bleeding, fevers, or worsening of medical condition. Patient was counseled about treatment plan, medications, possible side effects, patientverbalized understanding. All questions were answered to the best of my ability. This discharge took greater then 30 minutes in planning, reviewing documentation, counseling the patient, and discussing with other team members." ASSESSMENT ASSESSMENT Hospital Course Improved marginally Assessment Acute Alcohol intoxication blood alcohol 349 now resolved Acute Alcohol withdrawal seizures : Consult for tele neurologist Dr. Barrios appreciated, MRI brain without contrast negative, tele neurologist advised no seizure medication as the patient did not like Keppra in the past Alcoholic hepatitis Liver cirrhosis consult for Dr. Fernando Jones Elevated bilirubin Lactic acidosis likely due to underlying liver disease Hypokalemia Metabolic acidosis likely due to lactic acidosis Severe dehydration Thrombocytopenia likely due to underlying liver cirrhosis Depression Marijuana abuse Chest x-ray negative CT head negative Date of Service: Dec 17, 2024 Billing Provider: LALITA SÁNCHEZ MD Common Visit Codes: [id number] DISCH DAY >30min LALITA SÁNCHEZ MD Dec 17, 2024 10:03
[2024-12-17 10:59] VITALS: BP 138/89; PULSE 69; RESP 18; TEMP 36.6; O2SAT 95
[2024-12-17 13:00] VITALS: BP 122/85; PULSE 78; RESP 20; TEMP 97; O2SAT 96
[2024-12-18] MEDS ORDERED: PANTOPRAZOLE 40 MG/10 ML VIAL INJ IV SCH (10:00)
== END 2024-12-17 16:10 | disposition home or self-care (01) | DRG 280 ==
LOC: ER 21:15 → EEVIPCON 21:15 → OVERFLOW 12-12 23:18 → WEST WING 12-13 17:54
PROVIDERS: ADMIT Family Medicine; ATTEND Family Medicine
DX: K70.30 Alcoholic cirrhosis of liver without ascites (principal); K70.10 Alcoholic hepatitis without ascites; E87.20 Acidosis, unspecified; E86.0 Dehydration; D69.59 Other secondary thrombocytopenia; Z59.00 Homelessness unspecified; E87.6 Hypokalemia; F41.9 Anxiety disorder, unspecified; F10.229 Alcohol dependence with intoxication, unspecified; F10.239 Alcohol dependence with withdrawal, unspecified; F32.A Depression, unspecified; F12.10 Cannabis abuse, uncomplicated; I10 Essential (primary) hypertension; G40.909 Epilepsy, unspecified, not intractable, without status epilepticus; Z83.3 Family history of diabetes mellitus; Z79.899 Other long term (current) drug therapy; Y90.8 Blood alcohol level of 240 mg/100 ml or more
CPT/HCPCS: 36415; 70450; 70551; 71045; 76705; 80048; 80053; 80074; 80307; 80320; 81001; 81025; 82140; 82542; 83605; 83690; 83735; 85025; 85610; 85730; 87040; 87426; 87804; 93005; 96360; 96361; 96372; 97163; G0378; J2405; J2470; J3480